=== PATIENT | female | born 1975 | race Caucasian/White ===

== ENCOUNTER 2021-04-04 18:18 | Outpatient (CLI) | payer BC, SELFPAY ==
--- NOTE | ~2021-04-04 | XR_ITS ---
XR knee LT min 4V DATE: 04/04/2021 18:47 INDICATION: Worsening chronic two-year left anterior knee pain. No injury. TECHNIQUE: Standing AP, PA and lateral views. [place] view. COMPARISON: None FINDINGS: There is very slight periarticular spurring of the patella. No fracture or dislocation or joint effusion. No periosteal reaction or bone destruction, chondrocalc inosis or radiopaque intra-articular loose body. IMPRESSION: Very slight osteoarthritis at the patellofemoral joint Reviewed, dictated and finalized at location A.
== END 2021-04-04 18:19 | disposition home or self-care (01) ==
LOC: ANHIMG 18:21
PROVIDERS: PCP Internal Medicine; Visit Provider Clinical Nurse Specialist
DX: M25.562 Pain in left knee (principal); M17.12 Unilateral primary osteoarthritis, left knee
CPT/HCPCS: 73564

== ENCOUNTER 2021-10-30 13:41 | Emergency (ER) | payer BC, SELFPAY ==
--- NOTE | ~2021-10-30 | CT_ITS ---
EXAMINATION: CT brain wo con INDICATION: Headache COMPARISON: None TECHNIQUE: Standard unenhanced head CT. The dose-length product (DLP) was 605.33 mGy-cm. The mA was a djusted according to patient size. Iterative reconstruction technique was employed. FINDINGS: There is no intracranial hemorrhage, acute infarction, or abnormal mass lesion. The ventric les are normal. There is no abnormal mass effect or midline shift. The epstein-white matter differentiat ion is normal. The basal cisterns are patent. The orbits are normal. The paranasal sinuses, mastoids and calvarium are normal. IMPRESSION: 1. No acute intracranial abnormality. Reviewed, dictated and finalized at location F. AL WINDER
[2021-10-30 13:44] VITALS: BP 153/88; PULSE 85; RESP 16; TEMP 37; O2SAT 98
[2021-10-30 18:26] VITALS: BP 207/96; PULSE 79; RESP 18; O2SAT 99
--- NOTE | 2021-10-30 19:19 | ECG_ITS ---
Measurements Intervals [place] Rate: 71 P: 41 IA: 151 QRS: 233 QRSD: 94 T: 7 QT: 412 QTc: 450 Interpretive Statements SINUS RHYTHM BORDERLINE T WAVE ABNORMALITY- INFERIOR LEADS BASELINE ARTIFACT- I, II, III, AVR, AVL, AVF, V1-V6 BORDERLINE ECG Electronically Signed On 10-31-2021 6:41:16 LABORATORY OPERATIONS COORDINATOR by Denis Sánchez D.O.
[2021-10-30] MEDS: KETOROLAC 30 MG/ML VIAL (*BKC) IV PUSH (19:42)
[2021-10-30 19:44] VITALS: BP 167/81; PULSE 77; RESP 18; O2SAT 99
[2021-10-30 19:55] LABS: Basophils Absolute Auto 0.1 K/mm3 (0.0-0.1); Basophils Percent Auto 0.9 % (0.2-1.2); Eosinophils Absolute Auto 0.1 K/mm3 (0-0.3); Hematocrit 40.7 % (37.0-47.0); Hemoglobin 13.8 g/dL (12.0-15.0); Immature Granulocyte Absolute 0.03 K/mm3 (0.00-0.031); Immature Granulocyte Percent A 0.4 % (0-0.5); Lymphocytes Absolute Auto 2.24 K/mm3 (0.9-3.2); Lymphocytes Percent Auto 32.2 % (18.3-44.2); Mean Corpuscular HGB Conc 33.9 g/dl (32-36); Mean Corpuscular Hemoglobin 33.3 pg (26-34); Mean Corpuscular Volume 98.3 fl (80-100); Mean Platelet Volume 10.3 fl (7.4-10.4); Monocytes Absolute Auto 0.6 K/mm3 (0.1-0.6); Monocytes Percent Auto 7.9 % (2.6-8.5); Neutrophils Percent Auto 57.6 % (45.5-73.1); Platelet Count Result 198 k/mm3 (150-375); Red Blood Count 4.14 M/mm3 (4.2-5.4); Red Cell Distribution Width 14.1 % (11.5-14.5)
[2021-10-30 20:15] LABS: Alanine Aminotransferase 92 U/L (4-35); Albumin Level 4.1 g/dL (3.5-5.1); Alkaline Phosphatase 132 U/L (38-126); Anion Gap 9 mmol/L (8-16); Aspartate Amino Transferase 171 U/L (14-36); Bilirubin,Total 1.7 mg/dL (0.2-1.3); Blood Urea Nitrogen 8 mg/dL (7-17); Calcium 9.2 mg/dL (8.4-10.2); Carbon Dioxide 29 mmol/L (22-30); Chloride 99 mmol/L (98-107); Estimated CRCL calculation 109 ml/min; Estimated Glomerular Filt Rate > 60; Glucose 98 mg/dL (65-110); Potassium 3.9 mmol/L (3.4-5.0); Sodium 137 mmol/L (137-145)
[2021-10-30 20:56] LABS: Add Urine Microscopic? YES; Appearance Urine Clear (Clear); Bacteria Urine Trace /hpf; Bilirubin Urine Negative (Negative); Blood Urine Negative (Negative); Color Urine Amber (Yellow); Glucose Urine UA Negative (Negative); Ketones Urine 1+ mg/dL (Negative); Leukocyte Esterase Ur Negative LEU/UL (Negative); Mucus Urine Few /lpf; Nitrate Urine Negative (Negative); Protein Urine Negative (Negative); RBC Urine 0-2 /hpf (0-2); Specific Grav Ur 1.021 (1.001-1.035); Squamous Epithelial Cell Urine Many /hpf (Few); WBC Urine 0-3 /hpf
--- NOTE | 2021-10-30 21:17 | ED.GENADULT ---
HPI - General Adult General Chief complaint: Dizziness Stated complaint: dizziness, headache. Time Seen by Provider: 10/30/21 19:00 History of Present Illness HPI narrative: Patient is a 46-year-old female who presents to the ER with headache. Patient was at work when she had a tingling headache in the back of her head. It is associated with the feeling that her arm was cold and hands were clammy. The affected arm was on the right side. She had no functional deficit. No difficulty with balance. Denies slurred speech. Patient is taking no pain medication for the headache. She is concerned that her blood pressure is elevated. Patient also reports that she started having shaking when her symptoms began. No loss of consciousness. Patient reports she has no loss of sensation in her arm including sharp/soft/hot/cold. Related Data Home Medications Medication Instructions Recorded Confirmed Daily Multivitamin 1 cap PO DAILY 08/29/19 04/24/21 calcium carbonate [Calcium 500] 500 mg PO DAILY 08/29/19 04/24/21 Allergies Allergy/AdvReac Type Severity Reaction Status Date / Time azithromycin Allergy Unknown Verified 06/21/19 15:12 erythromycin base Allergy Unknown Verified 09/26/18 12:06 morphine Allergy Unknown Verified 06/21/19 15:12 NSAIDS (Non-Steroidal AdvReac Gastrointestinal Verified 08/29/19 09:55 Anti-Inflamma Upset Review of Systems Review of Systems: All systems reviewed & are unremarkable except as noted in HPI and below Constitutional: Constitutional: Denies chills, Denies fever(s) and Denies weakness ENT: Denies nasal congestion Cardiovascular: Cardiovascular: Denies chest pain, Denies rapid heart rate and Denies radiating jaw, neck or arm pain Respiratory: Respiratory: Denies cough and Denies dyspnea Gastrointestinal: Gastrointestinal: Denies abdominal pain, Denies nausea and Denies vomiting Neurologic: Denies syncope, Reports headache(s), Denies focal weakness and Denies numbness Comments: cold arm PMFSH Past Medical History Medical History Anxiety Asthma Depression Hyperlipidemia Hypertension Plantar fasciitis Surgical History Surgical History History of appendectomy History of History of sleeve gastrectomy 2016 Family History Family History Mother Diabetes mellitus Hypertension Heart disease Father Hypertension Cerebrovascular accident Other Family history of cardiovascular disease Social History Social History Smoking status: Former smoker Smoking end date: 11/01/04 Alcohol intake: current Alcohol use details: 2-3 drinks 2-3 days a week Exam Narrative: GENERAL: Well-appearing, well-nourished, and in no acute distress. HEAD: Normocephalic, atraumatic. EYES: PERRLA and EOMI. NECK: Supple. CHEST: Clear to auscultation. No respiratory distress. HEART: Regular rate and rhythm. Normal peripheral pulses. ABDOMEN: Soft, nontender, nondistended EXTREMITIES: Normal range of motion. No edema. SKIN: Warm, dry, no rash. NEURO: No focal deficits. Clear speech. No drift. Normal finger-nose testing. Sensation intact in upper extremities. Alert and oriented x3. PSYCH: Normal mood and affect. Course Course Emergency Course: Headache resolved with Toradol. Labs unremarkable with exception of transaminases. Patient reports she drinks daily. She has no right upper quadrant tenderness. Discussed she should follow-up with her PCP regarding her elevated liver enzymes. Could be related to drinking or fatty liver disease. Patient has follow-up scheduled with her PCP on 11/04/2020. Vital Signs Vital signs: Vital Signs Temperature 98.6 F 10/30/21 13:44 Pulse Rate 85 10/30/21 13:44 Respiratory Rate 16 10/30/21 13:44 Blood Pressure 1
[2021-10-30 21:53] VITALS: BP 142/72; PULSE 73; RESP 18; O2SAT 99
[2021-10-30 23:21] VITALS: BP 142/70; PULSE 78; RESP 20; O2SAT 99
== END 2021-10-30 23:22 | disposition home or self-care (01) ==
PROVIDERS: Emergency Provider Emergency Medicine; PCP Internal Medicine
DX: R51.9 Headache, unspecified (principal); R74.01 Elevation of levels of liver transaminase levels; J45.909 Unspecified asthma, uncomplicated; E78.5 Hyperlipidemia, unspecified; I10 Essential (primary) hypertension; Z98.84 Bariatric surgery status; Z87.891 Personal history of nicotine dependence; R94.31 Abnormal electrocardiogram [ECG] [EKG]
CPT/HCPCS: 36415; 70450; 80053; 81001; 81025; 85025; 93005; 96374; 99284; J1885

== ENCOUNTER 2021-11-26 09:15 | Outpatient (CLI) | payer BC, SELFPAY ==
--- NOTE | ~2021-11-26 | US_ITS ---
EXAMINATION: US right upper quadrant EXAM DATE: 11/26/2021 09:42 INDICATION: Elevated liver enzymes. TECHNIQUE: Multiple grayscale and Doppler images of the abdomen right upper quadrant were obtained (b y a technologist who performed the scan) and subsequently reviewed. Comparison is made to prior exami nation from 07/18/2019. FINDINGS: The pancreatic head and body are normal in appearance. The pancreatic tail is not visualized. There is echogenic liver parenchyma, hepatic steatosis. There are no focal liver lesions identified. Th ere is no evidence of intrahepatic biliary duct dilation. Portal venous flow was seen in the hepatop edal, normal direction and has normal Doppler waveform. No right-sided hydronephrosis. Common bile duct measures 4 mm, which is normal. The gallbladder wall is normal in thickness, with ex pected amount of distention. No sonographic evidence of pericholecystic fluid. There is no cholelit hiases. Technologist performing exam reports patient did not demonstrate sonographic Stafford's sign. Please note that this sign is less reliable in patients who have received pain medication. IMPRESSION: Interval development of hepatic steatosis. Reviewed, dictated and finalized at location A. E INSURANCE AGENT
== END 2021-11-26 09:16 | disposition home or self-care (01) ==
LOC: ANHIMG 09:18
PROVIDERS: PCP Internal Medicine; Visit Provider Nurse Practitioner
DX: R74.8 Abnormal levels of other serum enzymes (principal); K76.0 Fatty (change of) liver, not elsewhere classified
CPT/HCPCS: 76705

== ENCOUNTER → 2021-11-26 14:47 | Outpatient (CLI) | payer BC, SELFPAY ==
--- NOTE | ~2021-11-26 | MM_ITS ---
EXAMINATION: MM screening marely BI w jimena HISTORY: Screening mammogram TECHNIQUE: Craniocaudal and mediolateral oblique 3-D tomosynthesis images were obtained and synthetic 2-D images were generated. CAD analysis was submitted and interpreted. COMPARISON: 07/18/2019 BREAST PARENCHYMAL COMPOSITION: There are scattered areas of fibroglandular density. FINDINGS: There is no evidence of suspicious mass, calcification, or architectural distortion to sugg est malignancy in either breast. There has been no suspicious interval change. IMPRESSION: 1. No mammographic evidence of malignancy. 2. Recommend routine screening mammography in one year. BI-RADS Category 1: Negative Reviewed, dictated and finalized at location A. FILTER OPERATOR
== END ==
PROVIDERS: Visit Provider Obstetrics & Gynecology
DX: Z12.31 Encounter for screening mammogram for malignant neoplasm of breast (principal)
CPT/HCPCS: 77063; 77067

== ENCOUNTER 2022-09-02 13:29 | Emergency (ER) | payer OTHER, SELFPAY ==
[2022-09-02] VITALS (10 sets, daily range): BP systolic 155–176; BP diastolic 76–88; PULSE 87–95; RESP 13–19; TEMP 37.1; O2SAT 96–100
--- NOTE | ~2022-09-02 | XR_ITS ---
EXAMINATION: XR chest 2V DATE: 09/02/2022 13:55 INDICATION: Chest pain. TECHNIQUE: Frontal and lateral views of the chest were obtained. COMPARISON: Chest 2 views 02/11/10, CT abdomen and pelvis 06/10/2019 FINDINGS: The chest demonstrates clear lungs without pneumonia, pleural effusion, or pneumothorax. Bl unting of left posterior costophrenic angle correlates with a small diaphragmatic hernia containing f at by CT. The heart size is normal. IMPRESSION: 1. No acute cardiopulmonary disease. Reviewed, dictated and finalized at location A.
--- NOTE | 2022-09-02 13:30 | ECG_ITS ---
Measurements Intervals [place] Rate: 91 P: 50 AL: 153 QRS: -3 QRSD: 84 T: 16 QT: 359 QTc: 443 Interpretive Statements SINUS RHYTHM DELAYED PRECORDIAL R/S TRANSITION BASELINE ARTIFACT- I, II, AVR, V6 BORDERLINE ECG COMPARED TO ECG 10/30/2021 20:01:37 NO SIGNIFICANT CHANGES Electronically Signed On 09-02-2022 14:04:43 CDT by Denis Sánchez D.O.
[2022-09-02 13:57] LABS: Basophils Absolute Auto 0.1 K/mm3 (0.0-0.1); Basophils Percent Auto 0.9 % (0.2-1.2); Eosinophils Absolute Auto 0.1 K/mm3 (0-0.3); Eosinophils Percent Auto 1.1 % (0-4.4); Hematocrit 39.5 % (37.0-47.0); Immature Granulocyte Absolute 0.03 K/mm3 (0.00-0.031); Immature Granulocyte Percent A 0.4 % (0-0.5); Lymphocytes Absolute Auto 2.37 K/mm3 (0.9-3.2); Lymphocytes Percent Auto 31.6 % (18.3-44.2); Mean Corpuscular HGB Conc 32.9 g/dl (32-36); Mean Corpuscular Hemoglobin 31.4 pg (26-34); Mean Corpuscular Volume 95.4 fl (80-100); Mean Platelet Volume 10.2 fl (7.4-10.4); Monocytes Absolute Auto 0.7 K/mm3 (0.1-0.6); Monocytes Percent Auto 9.7 % (2.6-8.5); Neutrophils Absolute Auto 4.2 K/mm3 (1.3-6.7); Neutrophils Percent Auto 56.3 % (45.5-73.1); Platelet Count Result 196 k/mm3 (150-375); Red Blood Count 4.14 M/mm3 (4.2-5.4); Red Cell Distribution Width 13.4 % (11.5-14.5); White Blood Count 7.5 K/mm3 (4.5-10.0)
[2022-09-02 14:10] LABS: Alanine Aminotransferase 82 U/L (6-35); Albumin Level 4.1 g/dL (3.5-5.1); Alkaline Phosphatase 127 U/L (38-126); Anion Gap 13 mmol/L (8-16); Aspartate Amino Transferase 198 U/L (14-36); Bilirubin,Total 1.1 mg/dL (0.2-1.3); Blood Urea Nitrogen 9 mg/dL (7-17); Calcium 8.8 mg/dL (8.4-10.2); Carbon Dioxide 29 mmol/L (22-30); Chloride 96 mmol/L (98-107); Estimated Glomerular Filt Rate > 60; Glucose 109 mg/dL (65-110); Lipase 258 U/L (23-300); Partial Thromboplastin Time 28.4 SECONDS (22.3-36.8); Potassium 3.5 mmol/L (3.4-5.0); Prothrombin Time 12.6 Seconds (11.1-14.7); Sodium 138 mmol/L (137-145)
[2022-09-02 14:22] LABS: Troponin I < 0.012 ng/mL (0.000-0.034)
--- NOTE | 2022-09-02 17:10 | ED.CHESTPAIN ---
HPI - Chest Pain General Chief Complaint: Chest Pain Stated Complaint: CHEST PAIN X 2 DAYS Time Seen by Provider: 09/02/22 16:52 History of Present Illness HPI narrative: 47-year-old female history of hypertension presents emergency room for evaluation of intermittent chest pain for 3 days. Patient states and occasionally shoots through to her back and radiates into her left upper quadrant, describes it as a sharp sensation. Patient states that she has been experiencing sinus congestion, postnasal drip and a productive cough for 3 weeks. Saw her PCP last week and was given a prescription for amoxicillin for her URI, and states that it has not alleviated her symptoms. Patient states that she is not taking any medications to alleviate her symptoms including her pain. Patient denies shortness of breath or difficulty breathing. Related Data Home Medications Medication Instructions Recorded Confirmed [id number] 200 mcg-vit K 100 1 cap PO DAILY 08/29/19 08/27/22 mcg-lycop 500 [id number] capsule (Daily Multivitamin) tolterodine 4 mg capsule,extended ea PO 08/27/22 08/27/22 release 24 hr Allergies Allergy/AdvReac Type Severity Reaction Status Date / Time azithromycin Allergy Unknown Hives Verified 09/02/22 16:11 erythromycin base Allergy Unknown Hives Verified 09/02/22 16:11 morphine Allergy Unknown Hives Verified 09/02/22 16:11 NSAIDS (Non-Steroidal AdvReac Gastrointestinal Verified 09/02/22 16:11 Anti-Inflamma Upset Review of Systems Review of Systems: CONSTITUTIONAL: Denies fever, chills, or sweats. EYES: Denies visual changes, redness, or discharge. ENT: Denies rhinorrhea, congestion, sore throat, or otalgia. CARDIOVASCULAR: Reports chest pain RESPIRATORY: Denies cough or dyspnea. GASTROINTESTINAL: Denies abdominal pain, nausea, vomiting, or diarrhea. GENITOURINARY: Denies dysuria or hematuria. SKIN: Denies rash or itching. MUSCULOSKELETAL: Denies back pain, joint pain, or myalgia. NEUROLOGIC: Denies headache, numbness, dizziness, or weakness. PSYCHIATRIC: Denies anxiety or depression. [facility] Past Medical History Medical History Anxiety Asthma Depression Hyperlipidemia Hypertension Plantar fasciitis Surgical History Surgical History History of appendectomy History of History of sleeve gastrectomy 2016 Family History Family History Mother Diabetes mellitus Hypertension Heart disease Father Hypertension Cerebrovascular accident Other Family history of cardiovascular disease Social History Social History Social History: Caffeine-tea occasionally Smoking status: Former smoker Smoking end date: 11/01/04 Alcohol intake: current Alcohol use details: 2-3 drinks 2-3 days a week Exam Narrative: GENERAL: Well-appearing, well-nourished, no physical limitations, and in no acute distress. HEAD: Normocephalic, atraumatic. EYES: Conjunctivae normal, PERRLA and EOMI. ENT: External nose normal, Nares clear, no rhinorrhea or epistaxis. Mucous membranes moist. Oropharynx without tonsillar hypertrophy exudate or other lesions. External ears normal, bilateral TMs normal bilaterally NECK: Supple. No adenopathy or masses. CHEST: Clear to auscultation. No respiratory distress. No wheezes rales or rhonchi. No tenderness. HEART: Regular rate and rhythm. No murmur heard. Normal peripheral pulses. EXTREMITIES: Normal range of motion. No edema. No clubbing or cyanosis SKIN: Warm, dry, no rash. No noted wounds NEURO: No focal deficits. Alert and oriented x3. MAEW. CN's II-XI intact bilaterally, normal gait PSYCH: Cooperative. Normal mood and affect. Course Vital Signs Vital signs: Vital Signs Temperature 37.1 C 09/02/22 14:29 Pulse Rate 91
[2022-09-02 17:28] LABS: Troponin I < 0.012 ng/mL (0.000-0.034)
== END 2022-09-02 17:20 | disposition home or self-care (01) ==
PROVIDERS: Emergency Medicine; Emergency Provider Nurse Practitioner Family; PCP Internal Medicine
DX: J06.9 Acute upper respiratory infection, unspecified (principal); R07.89 Other chest pain; F41.9 Anxiety disorder, unspecified; J45.909 Unspecified asthma, uncomplicated; F32.9 Major depressive disorder, single episode, unspecified; E78.5 Hyperlipidemia, unspecified; I10 Essential (primary) hypertension
CPT/HCPCS: 36415; 71046; 80053; 83690; 84484; 85025; 85610; 85730; 93005; 99284

== ENCOUNTER 2023-01-21 01:07 | Day surgery (SDC) | payer OTHER, SELFPAY ==
[2023-01-07 11:03] VITALS: BMI 39.9
--- NOTE | 2023-01-13 14:12 | PM.HPGS ---
History of Present Illness History of Present Illness Consent: Risks, benefits, and alternatives have been discussed and questions answered. Patient agrees to proceed with procedure. Chief complaint: diaphragmatic hernia, early satiety Narrative: Jennifer Moss is a 47 year old female who is being investigated because among other things, she believes that she may have a possible hiatal hernia on the right side. For the past month she has been having worsening pain in her upper abdomen and under the right side of her breast. She call feel something there and states that it almost feels like a baby's head pushing on her . The pressure is pushing up into her under wire bra also causing increased discomfort. She also gets full quite easily. Prior to her bariatric surgery she was diagnosed with a hiatal hernia and was originally under the impression that it was going to be corrected during her surgery but it was not.? It has not caused her any issues until recently. She is now having a hard time bending over, sitting down, and is in constant discomfort. [facility] Past Medical History Medical History Anxiety Asthma Depression Hyperlipidemia Hypertension Plantar fasciitis Surgical History Surgical History History of appendectomy History of History of sleeve gastrectomy 2015 Family History Family History Mother Diabetes mellitus Hypertension Heart disease Father Hypertension Cerebrovascular accident Other Family history of cardiovascular disease Social History Social History Social History: Caffeine-tea occasionally Smoking packs per day: 1 Smoking cigarettes per day: 20.0 Years smoked: 13 Smoking pack-years: 13.00 Smoking status: Former smoker Tobacco type: cigarettes Smoking end date: 11/01/04 Alcohol intake: current Drinks per week: 12 Alcohol use details: DRINKS Substance use: never Substance use type: does not use Lack of Transportation: No Lack of Food: Never True Current Housing: I Have Housing Concerned About Future Housing: No Difficulty Paying Gas/Electric Bills: No Difficulty Paying for Meds: No Currently Unemployed: No Education: High School Diploma/GED Difficulty w/ Childcare or Family Care: No Living arrangements: with family Spiritual care concerns: No Meds Home Medications and Allergies Home Medications Medication Instructions Recorded Confirmed Type [id number] 200 mcg-vit K 100 1 cap PO DAILY 08/29/19 01/07/23 History mcg-lycop 500 [id number] capsule (Daily Multivitamin) hydroxyzine HCl 10 mg tablet 10 mg PO TID PRN Anxiety 09/23/22 01/07/23 History lisinopril 40 mg tablet 40 mg PO DAILY #90 tabs 11/10/22 01/07/23 Rx omeprazole 20 mg capsule,delayed 20 mg PO DAILY PRN Acid Reflux 01/07/23 01/07/23 History release sertraline 100 mg tablet 100 mg PO DAILY 01/07/23 01/07/23 History Allergies Allergy/AdvReac Type Severity Reaction Status Date / Time azithromycin Allergy Intermediate Hives Verified 01/07/23 11:12 erythromycin base Allergy Intermediate Hives Verified 01/07/23 11:12 morphine Allergy Intermediate Hives Verified 01/07/23 11:12 NSAIDS (Non-Steroidal AdvReac Intermediate Gastrointestinal Verified 01/07/23 11:12 Anti-Inflamma Upset Assessment and Plan Assessment and plan (1) Early satiety: Code(s): R68.81 - Early satiety Status: Acute Assessment and Plan: EGD with possible biopsy or dilatation or cautery.
--- NOTE | 2023-01-20 16:52 | PM.HPGS ---
History of Present Illness History of Present Illness Consent: Risks, benefits, and alternatives have been discussed and questions answered. Patient agrees to proceed with procedure. Chief complaint: diaphragmatic hernia, early satiety Narrative: Jennifer Moss is a 47 year old female Who For the past month has been having worsening pain in her upper abdomen and under the right side of her breast. She call feel something there and states that it almost feels like a baby's head pushing on her . The pressure is pushing up into her under wire bra also causing increased discomfort. Prior to her bariatric surgery she was diagnosed with a hiatal hernia and was originally under the impression that it was going to be corrected during her surgery but it was not. Review of Systems Review of Systems: All systems reviewed & are unremarkable except as noted in HPI and below PMFSH Past Medical History Medical History Anxiety Asthma Depression Hyperlipidemia Hypertension Plantar fasciitis Surgical History Surgical History History of appendectomy History of History of sleeve gastrectomy 2015 Family History Family History Mother Diabetes mellitus Hypertension Heart disease Father Hypertension Cerebrovascular accident Other Family history of cardiovascular disease Social History Social History Social History: Caffeine-tea occasionally Smoking packs per day: 1 Smoking cigarettes per day: 20.0 Years smoked: 13 Smoking pack-years: 13.00 Smoking status: Former smoker Tobacco type: cigarettes Smoking end date: 11/01/04 Alcohol intake: current Drinks per week: 12 Alcohol use details: DRINKS Substance use: never Substance use type: does not use Lack of Transportation: No Lack of Food: Never True Current Housing: I Have Housing Concerned About Future Housing: No Difficulty Paying Gas/Electric Bills: No Difficulty Paying for Meds: No Currently Unemployed: No Education: High School Diploma/GED Difficulty w/ Childcare or Family Care: No Living arrangements: with family Spiritual care concerns: No Meds Home Medications and Allergies Home Medications Medication Instructions Recorded Confirmed Type [id number]-[id number]-[id number] 200 mcg-vit K 100 1 cap PO DAILY 08/29/19 01/07/23 History mcg-lycop 500 [id number] capsule (Daily Multivitamin) hydroxyzine HCl 10 mg tablet 10 mg PO TID PRN Anxiety 09/23/22 01/07/23 History lisinopril 40 mg tablet 40 mg PO DAILY #90 tabs 11/10/22 01/07/23 Rx omeprazole 20 mg capsule,delayed 20 mg PO DAILY PRN Acid Reflux 01/07/23 01/07/23 History release sertraline 100 mg tablet 100 mg PO DAILY 01/07/23 01/07/23 History Allergies Allergy/AdvReac Type Severity Reaction Status Date / Time azithromycin Allergy Intermediate Hives Verified 01/21/23 09:46 erythromycin base Allergy Intermediate Hives Verified 01/21/23 09:46 morphine Allergy Intermediate Hives Verified 01/21/23 09:46 NSAIDS (Non-Steroidal AdvReac Intermediate Gastrointestinal Verified 01/21/23 09:46 Anti-Inflamma Upset Exam Resp: Auscultation: clear to auscultation bilaterally Cardio: Rate: regular rate Rhythm: regular rhythm GI: Inspection: normal to inspection GI Palp: Yes Soft to palpation, No Tenderness to palpation present (GI) and Yes Hepatomegaly present Auscultation: normal bowel sounds Assessment and Plan Assessment and plan (1) Hiatal hernia: Code(s): K44.9 - Diaphragmatic hernia without obstruction or gangrene Status: Acute Assessment and Plan: EGD with possible biopsy or dilatation or cautery.
--- NOTE | 2023-01-21 07:38 | WPDANESEPPF ---
Anes - Initial Pre Proc Eval Procedure: Operation Date: 01/21/23 10:30 Proposed Procedures p Esophagogastroduodenoscopy - Artemio Starks MD Date/Time: 01/21/23 07:38 Surgeon: Artemio Starks MD Pre Op Diagnosis: diaphragmatic hernia, early satiety Patient Data Age: 47 Gender: F Height: 1.55 m Weight: 96 kg Allergies Allergy/AdvReac Type Severity Reaction Status Date / Time azithromycin Allergy Intermediate Hives Verified 01/21/23 09:46 erythromycin base Allergy Intermediate Hives Verified 01/21/23 09:46 morphine Allergy Intermediate Hives Verified 01/21/23 09:46 NSAIDS (Non-Steroidal AdvReac Intermediate Gastrointestinal Verified 01/21/23 09:46 Anti-Inflamma Upset Home Medications Medication Instructions Recorded Confirmed Type [id number]-wib-[id number] 200 mcg-vit K 100 1 cap PO DAILY 08/29/19 01/07/23 History mcg-lycop 500 [id number] capsule (Daily Multivitamin) hydroxyzine HCl 10 mg tablet 10 mg PO TID PRN Anxiety 09/23/22 01/07/23 History lisinopril 40 mg tablet 40 mg PO DAILY #90 tabs 11/10/22 01/07/23 Rx omeprazole 20 mg capsule,delayed 20 mg PO DAILY PRN Acid Reflux 01/07/23 01/07/23 History release sertraline 100 mg tablet 100 mg PO DAILY 01/07/23 01/07/23 History omeprazole 40 mg capsule,delayed 40 mg PO DAILY #30 caps 01/21/23 Rx release Patient hx anesthesia problems: none Family hx anesthesia problems: none Results Review: All pre-operative results and documents have been reviewed as part of the pre-operative evaluation. [facility] Past Medical History Medical History Anxiety Asthma Depression Hyperlipidemia Hypertension Plantar fasciitis Surgical History Surgical History History of appendectomy History of History of sleeve gastrectomy 2016 Family History Family History Mother Diabetes mellitus Hypertension Heart disease Father Hypertension Cerebrovascular accident Other Family history of cardiovascular disease Social History Social History Social History: Caffeine-tea occasionally Smoking packs per day: 1 Smoking cigarettes per day: 20.0 Years smoked: 13 Smoking pack-years: 13.00 Smoking status: Former smoker Tobacco type: cigarettes Smoking end date: 11/01/04 Alcohol intake: current Drinks per week: 12 Alcohol use details: DRINKS Substance use: never Substance use type: does not use Lack of Transportation: No Lack of Food: Never True Current Housing: I Have Housing Concerned About Future Housing: No Difficulty Paying Gas/Electric Bills: No Difficulty Paying for Meds: No Currently Unemployed: No Education: High School Diploma/GED Difficulty w/ Childcare or Family Care: No Living arrangements: with family Spiritual care concerns: No Anes - Eval Final PreProcedure Day of Procedure 01/21/23 07:38 Patient weight: morbidly obese Heart: regular rate and rhythm Lungs: clear to auscultation Airway: Mallampati scale class II Neurological: alert and oriented Last oral intake: >/= 8 hours ASA classification: III Emergent: no Anesthetic plan: proceed Anesthesia type and monitoring: general GIVS and standard monitoring Results Review: All pre-operative results and documents have been reviewed as part of the pre-operative evaluation. Informed Consent: The patient's anesthetic plan and its attendant risks and benefits were discussed with the patient/family/POA. Questions were solicited and answers provided to the satisfaction of the patient/family/POA.
[2023-01-21 09:48] VITALS: BP 143/83; PULSE 87; RESP 18; TEMP 36.4; O2SAT 100
[2023-01-21] MEDS: LACTATED RINGERS 1,000 ML 150 ML IV CONT (09:57)
[2023-01-21 10:33] VITALS: BP 96/64; PULSE 85; RESP 18; O2SAT 100
[2023-01-21 10:43] VITALS: BP 118/71; PULSE 81; RESP 20; O2SAT 100
[2023-01-21 10:53] VITALS: BP 120/69; PULSE 71; RESP 22; O2SAT 100
== END 2023-01-21 11:00 | disposition home or self-care (01) ==
PROVIDERS: PCP Internal Medicine; Visit Provider Internal Medicine Gastroenterology
PROC: 0DJ08ZZ Inspection of Upper Intestinal Tract, Via Natural or Artificial Opening Endoscopic (ICD-10-PCS; CPT 43235; principal; 2023-01-21 10:30)
DX: K21.00 Gastro-esophageal reflux disease with esophagitis, without bleeding (principal); K29.70 Gastritis, unspecified, without bleeding; K22.10 Ulcer of esophagus without bleeding; Z98.84 Bariatric surgery status; I10 Essential (primary) hypertension; F41.9 Anxiety disorder, unspecified; F32.A Depression, unspecified; Z87.891 Personal history of nicotine dependence; E66.01 Morbid (severe) obesity due to excess calories; Z68.39 Body mass index [BMI] 39.0-39.9, adult
CPT/HCPCS: 43239; 88305; 88312; J2001; J2704; J7120

== ENCOUNTER 2023-01-22 14:09 | Outpatient (CLI) | payer OTHER, SELFPAY ==
--- NOTE | ~2023-01-22 | CT_ITS ---
EXAMINATION: CT abdomen pelvis w con DATE: 01/22/2023 14:40 INDICATION: Worsening right upper quadrant abdominal pain, early satiety, acid reflux. Nausea, diarrh ea. Diaphragmatic hernia. Hiatal hernia. History of gastric sleeve surgery and appendectomy. TECHNIQUE: Computed tomography (CT) of the abdomen and pelvis was performed with 100 CC Omnipaque 350 intravenous contrast. Automated exposure control and iterative reconstruction technique were employe d. Exam dose: 1055.05 mGy-cm total exam DLP. COMPARISON: 11/26/2021 right upper quadrant abdominal ultrasound examination 06/10/2019 CT abdomen pelvis FINDINGS: Probable calcified left lower lobe pulmonary granuloma. The included lower lung vazquez are clear of infiltrate or consolidation. Fat-containing left foramen of Bochdalek hernia. Normal heart size. No pericardial or pleural effusion. There is diffuse hepatic steatosis. No hepatic, splenic, pancreatic, and adrenal or renal space-occup mynor mass lesion or gallbladder is present. No bile duct or pancreatic duct dilatation. No urinary tr act calculus or hydroureteronephrosis. There is atherosclerotic calcification of the abdominal aorta and iliac arteries. No abdominal aortic aneurysm. No intraperitoneal or retroperitoneal or pelvic mass lesion or adenopathy or ascites. Status post gastric sleeve surgery. Status post appendectomy. There is diverticulosis of the left colon; no CT evidence of diverticulitis. No bowel obstruction, rony wel wall thickening, pneumatosis or intraperitoneal free air. Approximately 2.1 x 3.1 cm uterine cervical nabothian cyst. Up to approximately 2 cm left ovarian cysts. No suspicious osteolytic or osteoblastic lesions. IMPRESSION: Status post gastric sleeve surgery Status post appendectomy Diverticulosis of left colon; no evidence of diverticulitis Diffuse hepatic steatosis Reviewed, dictated and finalized at [facility]. Reviewed, dictated and finalized at location [facility].
[2023-01-22 14:32] LABS: Estimated Glomerular Filt Rate > 60
== END 2023-01-22 14:10 ==
PROVIDERS: PCP Internal Medicine; Visit Provider Clinical Nurse Specialist
DX: R68.81 Early satiety (principal); K44.9 Diaphragmatic hernia without obstruction or gangrene; Z98.84 Bariatric surgery status; K57.90 Diverticulosis of intestine, part unspecified, without perforation or abscess without bleeding; K76.0 Fatty (change of) liver, not elsewhere classified
CPT/HCPCS: 74177; Q9967

== ENCOUNTER → 2023-02-02 16:22 | Outpatient (CLI) | payer OTHER, SELFPAY ==
--- NOTE | ~2023-02-02 | MM_ITS ---
EXAMINATION: MM screening marely BI w jimena HISTORY: Screening mammogram TECHNIQUE: Craniocaudal and mediolateral oblique 3-D tomosynthesis images were obtained and synthetic 2-D images were generated. CAD analysis was submitted and interpreted. COMPARISON: 11/26/2021, 07/18/2019 bilateral screening mammogram examinations BREAST PARENCHYMAL COMPOSITION: There are scattered areas of fibroglandular density. FINDINGS: There is no evidence of suspicious mass, calcification, or architectural distortion to sugg est malignancy in either breast. There has been no suspicious interval change. IMPRESSION: 1. No mammographic evidence of malignancy. 2. Recommend routine screening mammography in one year. BI-RADS Category 1: Negative Reviewed, dictated and finalized at location [facility].
== END ==
PROVIDERS: PCP Internal Medicine; Visit Provider Obstetrics & Gynecology
DX: Z12.31 Encounter for screening mammogram for malignant neoplasm of breast (principal)
CPT/HCPCS: 77063; 77067

== ENCOUNTER 2023-04-02 12:36 | Outpatient (CLI) | payer OTHER, SELFPAY ==
[2023-04-02 18:26] LABS: Basophils Absolute Auto 0.1 K/mm3 (0.0-0.1); Basophils Percent Auto 1.2 % (0.2-1.2); Eosinophils Percent Auto 0.2 % (0-4.4); Hematocrit 39.6 % (37.0-47.0); Hemoglobin 13.6 g/dL (12.0-15.0); Immature Granulocyte Absolute 0.02 K/mm3 (0.00-0.031); Immature Granulocyte Percent A 0.2 % (0-0.5); Lymphocytes Absolute Auto 2.59 K/mm3 (0.9-3.2); Lymphocytes Percent Auto 25.8 % (18.3-44.2); Mean Corpuscular HGB Conc 34.3 g/dl (32-36); Mean Corpuscular Hemoglobin 34.6 pg (26-34); Mean Corpuscular Volume 100.8 fl (80-100); Mean Platelet Volume 11.3 fl (7.4-10.4); Monocytes Absolute Auto 0.9 K/mm3 (0.1-0.6); Monocytes Percent Auto 9.1 % (2.6-8.5); Neutrophils Absolute Auto 6.4 K/mm3 (1.3-6.7); Neutrophils Percent Auto 63.5 % (45.5-73.1); Platelet Count Result 272 k/mm3 (150-375); Red Blood Count 3.93 M/mm3 (4.2-5.4); Red Cell Distribution Width 14.1 % (11.5-14.5)
[2023-04-02 18:28] LABS: Alanine Aminotransferase 127 U/L (6-35); Albumin Level 3.6 g/dL (3.5-5.1); Alkaline Phosphatase 204 U/L (38-126); Anion Gap 13 mmol/L (8-16); Aspartate Amino Transferase 312 U/L (14-36); Bilirubin,Total 2.5 mg/dL (0.2-1.3); Blood Urea Nitrogen 13 mg/dL (7-17); Calcium 8.3 mg/dL (8.4-10.2); Carbon Dioxide 32 mmol/L (22-30); Chloride 91 mmol/L (98-107); Estimated Glomerular Filt Rate 53; Glucose 84 mg/dL (65-110); Potassium 3.1 mmol/L (3.4-5.0); Sodium 136 mmol/L (137-145)
[2023-04-02 18:48] LABS: Appearance Urine Turbid (Clear); Bilirubin Urine 2+ (Negative); Blood Urine Negative (Negative); Color Urine Brown (Yellow); Glucose Urine UA Negative (Negative); Ketones Urine 2+ mg/dL (Negative); Leukocyte Esterase Ur Negative LEU/UL (Negative); Nitrate Urine Negative (Negative); Protein Urine 2+ mg/dL (Negative); Specific Grav Ur 1.025 (1.001-1.035); Urobilinogen Urine >=8.0 mg/dL (<2.0)
[2023-04-02 19:00] LABS: Erythrocyte Sedimentation Rate 24 mm/hr (0-20)
[2023-04-02 19:05] LABS: Bacteria Urine None Seen /hpf; Need Manual Microscopic Reviewed; Non Pathogenic Casts >20; RBC Urine 21-50 /hpf (0-2); Squamous Epithelial Cell Urine Many /hpf (Few)
[2023-04-02 19:06] LABS: Add Urine Microscopic? YES
[2023-04-02 19:10] LABS: HIV 1/2 Ab P24 Ag Result Negative (Negative); Hepatitis B Surface Antigen Negative (Negative)
[2023-04-02 19:27] LABS: Hepatitis C Virus Antibody Negative (Negative)
[2023-04-03 01:12] LABS: Iron 112 ug/dL (37-170); Percent Iron Saturation 63 % (20-50)
== END 2023-04-02 12:37 | disposition home or self-care (01) ==
LOC: ANHGOSHLAB 12:37
PROVIDERS: PCP Internal Medicine; Visit Provider Nurse Practitioner
DX: R68.81 Early satiety (principal); R63.4 Abnormal weight loss; R16.0 Hepatomegaly, not elsewhere classified
CPT/HCPCS: 36415; 80053; 81001; 82728; 83036; 83540; 83550; 84443; 85025; 85652; 86703; 86803; 87086; 87340; G0432

== ENCOUNTER 2023-04-16 14:45 | Emergency (ER) | payer OTHER, SELFPAY ==
[2023-04-16] VITALS (22 sets, daily range): BP systolic 107–149; BP diastolic 52–85; PULSE 80–115; RESP 14–34; TEMP 36.3; O2SAT 98–100
--- NOTE | ~2023-04-16 | XR_ITS ---
EXAMINATION: XR chest 1V portable 04/16/2023 16:30 INDICATION: Shortness of breath and numbness. PROCEDURE: AP portable chest COMPARISON: Comparison to multiple prior studies sequentially, with oldest reviewed study dated 12/2008. FINDINGS: The lungs are clear. The cardiomediastinal silhouette is within normal limits. There are no pleural effusions. There is no pneumothorax suspected. IMPRESSION: 1: NO ACUTE CARDIOPULMONARY DISEASE. Reviewed, dictated and finalized at location []
--- NOTE | ~2023-04-16 | CT_ITS ---
EXAMINATION: CT brain wo con DATE: 04/16/2023 18:16 INDICATION: Bilateral leg numbness . TECHNIQUE: Computed tomography (CT) of the head was performed without intravenous contrast. The mA wa s adjusted according to patient size. Iterative reconstruction technique was employed. The dose-lengt h product was 605.33 mGy-cm. COMPARISON: None. FINDINGS: No acute intracranial hemorrhage or extra-axial fluid collection. No hydrocephalus, mass, or herniation. No acute ischemic infarct. Unremarkable dural venous sinus attenuation. No acute osseous abnormality. The aerated spaces are clear. IMPRESSION: No acute intracranial process. Reviewed, dictated and finalized at location [facility].
--- NOTE | 2023-04-16 15:10 | ECG_ITS ---
Measurements Intervals [place] Rate: 97 P: 43 [place]: 124 QRS: 3 QRSD: 85 T: 27 QT: 355 QTc: 451 Interpretive Statements SINUS RHYTHM NONSPECIFIC ST & T-WAVE ABNORMALITY ABNORMAL ECG COMPARED TO ECG 09/02/2022 13:46:23 T-WAVE ABNORMALITY NOW PRESENT Electronically Signed On 04-17-2023 9:12:39 CDT by Keenan Juarez M.D.
[2023-04-16 15:36] LABS: Basophils Absolute Auto 0.1 K/mm3 (0.0-0.1); Basophils Percent Auto 0.9 % (0.2-1.2); Eosinophils Percent Auto 0.3 % (0-4.4); Hematocrit 37.3 % (37.0-47.0); Hemoglobin 12.6 g/dL (12.0-15.0); Immature Granulocyte Absolute 0.04 K/mm3 (0.00-0.031); Immature Granulocyte Percent A 0.4 % (0-0.5); Lymphocytes Absolute Auto 1.54 K/mm3 (0.9-3.2); Lymphocytes Percent Auto 15.6 % (18.3-44.2); Mean Corpuscular HGB Conc 33.8 g/dl (32-36); Mean Corpuscular Hemoglobin 34.2 pg (26-34); Mean Corpuscular Volume 101.4 fl (80-100); Mean Platelet Volume 10.2 fl (7.4-10.4); Monocytes Absolute Auto 0.7 K/mm3 (0.1-0.6); Monocytes Percent Auto 6.8 % (2.6-8.5); Neutrophils Absolute Auto 7.5 K/mm3 (1.3-6.7); Platelet Count Result 277 k/mm3 (150-375); Red Blood Count 3.68 M/mm3 (4.2-5.4); Red Cell Distribution Width 13.8 % (11.5-14.5); White Blood Count 9.9 K/mm3 (4.5-10.0)
[2023-04-16 15:47] LABS: INR 0.9; Prothrombin Time 12.5 Seconds (11.1-14.7)
[2023-04-16 15:48] LABS: Alanine Aminotransferase 107 U/L (6-35); Albumin Level 3.6 g/dL (3.5-5.1); Alkaline Phosphatase 224 U/L (38-126); Anion Gap 10 mmol/L (8-16); Aspartate Amino Transferase 249 U/L (14-36); Blood Urea Nitrogen 8 mg/dL (7-17); Calcium 8.8 mg/dL (8.4-10.2); Carbon Dioxide 30 mmol/L (22-30); Chloride 96 mmol/L (98-107); Estimated CRCL calculation 88 ml/min; Estimated Glomerular Filt Rate > 60; Glucose 123 mg/dL (65-110); Magnesium 1.5 mg/dL (1.6-2.3); Partial Thromboplastin Time 28.1 SECONDS (22.3-36.8); Potassium 3.1 mmol/L (3.4-5.0); Sodium 136 mmol/L (137-145)
--- NOTE | 2023-04-16 15:57 | ED.GENADULT ---
HPI - General Adult General Chief complaint: Neuro Symptoms/Deficit Stated complaint: lower waist, bilateral leg numbness since yesterda Time Seen by Provider: 04/16/23 15:18 History of Present Illness HPI narrative: 48-year-old female present to the emergency department for evaluation of lower extremity numbness. Patient states that she has had decreased sensation in her lower legs bilaterally all day today. Patient denies any associated weakness. Patient states she does have history of gastric sleeve and has had decreased p.o. intake and is also had some unintentional weight loss. Patient was also reporting some increased shortness of breath today. Patient denies any associated chest pain. Related Data Home Medications Medication Instructions Recorded Confirmed hydroxyzine HCl 10 mg tablet 10 mg PO TID PRN Anxiety 09/23/22 04/06/23 sertraline 100 mg tablet 100 mg PO DAILY 01/07/23 04/06/23 Allergies Allergy/AdvReac Type Severity Reaction Status Date / Time azithromycin Allergy Intermediate Hives Verified 04/06/23 13:38 erythromycin base Allergy Intermediate Hives Verified 04/06/23 13:38 morphine Allergy Intermediate Hives Verified 04/06/23 13:38 NSAIDS (Non-Steroidal AdvReac Intermediate Gastrointestinal Verified 04/06/23 13:38 Anti-Inflamma Upset Review of Systems Review of Systems: All systems reviewed & are unremarkable except as noted in HPI and below PMFSH Past Medical History Medical History Anxiety Asthma Depression Hyperlipidemia Hypertension Plantar fasciitis Surgical History Surgical History History of appendectomy History of History of sleeve gastrectomy 2016 Family History Family History Mother Diabetes mellitus Hypertension Heart disease Father Hypertension Cerebrovascular accident Other Family history of cardiovascular disease Social History Social History Social History: Caffeine-tea occasionally Smoking packs per day: 1 Smoking cigarettes per day: 20.0 Years smoked: 13 Smoking pack-years: 13.00 Smoking status: Former smoker Tobacco type: cigarettes Smoking end date: 11/01/04 Alcohol intake: current Drinks per week: 12 Alcohol use details: DRINKS Substance use: never Substance use type: does not use Lack of Transportation: No Lack of Food: Never True Current Housing: I Have Housing Concerned About Future Housing: No Difficulty Paying Gas/Electric Bills: No Difficulty Paying for Meds: No Currently Unemployed: No Education: High School Diploma/GED Difficulty w/ Childcare or Family Care: No Living arrangements: with family Spiritual care concerns: No Exam Narrative: APPEARANCE: Well appearing, no pain, no distress, well-nourished. HEAD: normocephalic, atraumatic. EYES: PERRLA/EOMI, conjunctivae clear. NOSE: Normal no drainage NECK: Supple. No adenopathy, no masses. RESPIRATORY: Airway patent, respirations nonlabored. Clear to auscultation bilaterally, no rales, rhonchi, wheezing. CARDIOVASCULAR: Regular rate and rhythm without murmurs rubs or gallops. ABDOMINAL: Soft, nontender, nondistended, normal bowel sounds MUSCULOSKELETAL: Moves all extremities. Strength/ROM intact, No edema, No calf tenderness. NEURO: Alert. Cranial nerves II through XII intact. Grossly intact. Normal strength reflexes and sensation. Normal proprioception. SKIN: Warm, dry. Normal Color Course Course Emergency Course: 48-year-old female presented ED for evaluation of shortness of breath and lower extremity numbness. Patient is hypokalemic and hypomagnesemic these are being replaced by IV and p.o. Patient had a negative head CT. Patient reports he does have some minor improvement in her symptoms. Patient'
[2023-04-16] MEDS: POTASSIUM CHLORIDE 20 MEQ PACKET (FOR LIQUID) 40 MEQ PO (16:37)
[2023-04-16] MEDS: MAGNESIUM SULF 2 GM/WATER 50ML 2 GM/50 ML BAG IVPB (16:37)
[2023-04-16 16:52] LABS: D Dimer 0.29 ug/mL (<0.48)
[2023-04-16] MEDS: KCL 20 MEQ/SW 100 ML 100 ML 50 MEQ IVPB (17:48)
== END 2023-04-16 20:13 | disposition home or self-care (01) ==
PROVIDERS: Emergency Provider Emergency Medicine; PCP Internal Medicine
DX: G62.9 Polyneuropathy, unspecified (principal); Z87.891 Personal history of nicotine dependence; E87.6 Hypokalemia; J45.909 Unspecified asthma, uncomplicated; I10 Essential (primary) hypertension; F41.9 Anxiety disorder, unspecified; F32.A Depression, unspecified; E78.5 Hyperlipidemia, unspecified; Z98.84 Bariatric surgery status; E83.42 Hypomagnesemia
CPT/HCPCS: 36415; 70450; 71045; 80053; 82607; 82746; 83735; 84443; 85025; 85380; 85610; 85730; 93005; 96365; 96366; 96367; 99284; A9270; J3475; J3480

== ENCOUNTER 2023-04-22 12:13 | Outpatient (CLI) | payer OTHER, SELFPAY ==
[2023-04-22 19:39] LABS: Magnesium 1.6 mg/dL (1.6-2.3); Potassium 4.4 mmol/L (3.4-5.0)
== END 2023-04-22 12:14 | disposition home or self-care (01) ==
LOC: ANHBWCLAB 12:15
PROVIDERS: PCP Internal Medicine; Visit Provider Nurse Practitioner
DX: E87.6 Hypokalemia (principal); E83.42 Hypomagnesemia; R79.89 Other specified abnormal findings of blood chemistry
CPT/HCPCS: 36415; 82728; 83735; 84132

== ENCOUNTER 2023-04-28 07:42 | Inpatient (IN) | payer OTHER, SELFPAY ==
[2023-04-28] VITALS (19 sets, daily range): BP systolic 127–173; BP diastolic 45–98; PULSE 82–107; RESP 14–20; TEMP 36.4–36.9; O2SAT 97–100; BMI 36.5
--- NOTE | ~2023-04-28 | MR_ITS ---
EXAMINATION: MR lumbar spine wo/w con DATE: 04/28/2023 16:43 INDICATION: Numbness from the chest to the feet TECHNIQUE: Magnetic resonance imaging (MRI) of the lumbar spine was performed without and with 17 mL Multihance intravenous contrast. Sequences included sagittal T2-weighted FSE, sagittal T2-weighted FS FSE, and sagittal and axial T1-weighted FSE. Postcontrast sequences included axial T2-weighted FSE, sagittal T1-weighted FSE, and axial and sagittal T1-weighted FS FSE. COMPARISON: CT abdomen pelvis dated 01/22/2023 FINDINGS: Alignment is normal. Vertebral body heights are normal. Normal marrow signal. Mild disc desiccation and mild disc height loss at L4-L5 and L5-S1. The conus medullaris terminates at L1. There is normal signal in the caudal spinal cord. Paravertebral soft tissues are unremarkable. No abnormally enhancin g lesions identified. The following disc levels are specifically discussed: T12-L1 through L3-L4: The disc does not extend beyond the endplate margin. There is mild bilateral fa cet joint osteoarthritis. There is no neural foraminal stenosis. There is no central canal stenosis. L4-L5: Disc is mildly bulging. There is minimal bilateral facet joint osteoarthritis. There is mild b ilateral neural foraminal stenosis. There is no central canal stenosis. L5-S1: Disc is bulging. There is moderate bilateral facet joint osteoarthritis. There is mild bilater al neural foraminal stenosis. There is mild central canal stenosis resulting primarily from increased epidural fat. IMPRESSION: 1. Mild lower lumbar spondylosis. Reviewed, dictated and finalized at location A.
--- NOTE | ~2023-04-28 | CT_ITS ---
EXAMINATION: CTA BRAIN/CAROTID DATE: 04/28/2023 09:40 INDICATION: Progressive weakness TECHNIQUE: Computed tomographic angiography (CTA) of the head and neck was performed with 100 mL Omni paque-350 intravenous contrast. Multiplanar reconstructions and maximum intensity projection 3D-recon structions of the carotid arteries and of the intracranial arteries were created by the technologist on a separate workstation. Precontrast CT of the head was also obtained. Automated exposure control and iterative reconstruction technique were employed.The dose-length product was 1694.20 mGy-cm. COMPARISON: Head CT dated 04/16/2023 FINDINGS: Carotid arteries: Visualized aortic arch is normal in caliber with small amount of nonhemodynamically significant ather osclerotic plaque and no dissection. There is no evident plaque with 0% stenosis of the right and lef t carotid bulbs relative to normal distal artery lumen diameter (NASCET criteria). Right vertebral ar kait is dominant. Visualized portions of the upper lungs are clear. The cervical soft tissues and vis ualized superior mediastinum are unremarkable. Likely positional reversal of the normal cervical lord osis with multilevel mild cervical facet osteoarthritis. Disc spaces appear normal with no evident ce ntral canal stenosis. Head: No acute intracranial hemorrhage, acute infarction or abnormal extra axial fluid collection. Ventricl es are normal and symmetric. No mass/mass effect. The orbits, paranasal sinuses and mastoid air cells are normal. Intracranial arteries Right vertebral artery is dominant. Minimal calcified atherosclerotic plaque at the bilateral carotid siphons without hemodynamically significant stenosis. There is no hemodynamically significant stenos is in the vertebral, basilar and internal carotid arteries. There are no aneurysms identified. Both A1 and P1 segments are patent. Cerebral arterial arborization appears symmetric. IMPRESSION: 1. No evident atherosclerotic plaque with 0% stenosis of the right and left carotid bulbs relative to normal distal artery lumen diameter (NASCET criteria). 2. Normal head CT and cerebral CT angiogram. Reviewed, dictated and finalized at location A. IMPRESSION: 1. No evident atherosclerotic plaque with 0% stenosis of the right and left car otid bulbs relative to normal distal artery lumen diameter (NASCET criteria). 2. Normal head CT and cerebral CT angiogram.
--- NOTE | ~2023-04-28 | US_ITS ---
EXAMINATION: US abdomen limited DATE: 04/29/2023 19:18 INDICATION: elevated LFTs TECHNIQUE: Multiple grayscale and Doppler ultrasound images of limited portions of the abdomen were o btained. COMPARISON: CT abdomen pelvis 01/22/2023. FINDINGS: The visualized portions of the pancreas are normal. Increased liver echogenicity and normal echotexture. No surface nodularity. Normal hepatopetal flow in the main portal vein. The gallbladder is normal with no abnormal wall thickening, pericholecystic fluid or stones. The common bile duct me asures 4 mm. There was no sonographic Stafford sign. IMPRESSION: Echogenic liver, most commonly due to steatosis but also can be seen with hepatitis and fibrosis. Reviewed, dictated and finalized at location K. IMPRESSION: Echogenic liver, most commonly due to steatosis but also can be seen with hepat itis and fibrosis.
--- NOTE | ~2023-04-28 | MR_ITS ---
EXAMINATION: MR thoracic spine wo/w con DATE: 04/28/2023 16:43 INDICATION: Numbness from the chest through the lower extremities TECHNIQUE: Magnetic resonance imaging (MRI) of the thoracic spine was performed without and with 17 m L Multihance intravenous contrast. Sagittal localizer T1-weighted FSE of the cervicothoracic spine wa s obtained. Sequences included sagittal T2-weighted FSE, sagittal T2-weighted FS FSE, sagittal T1-fazal ghted FSE, sagittal fluid sensitive FSE STIR and axial T1-weighted SE. Postcontrast sequences include d axial T2-weighted FSE, sagittal T1-weighted FS FSE, and axial T1-weighted FS SE. COMPARISON: None FINDINGS: 7 degrees upper thoracic levocurvature. Sagittal alignment is normal.Vertebral body heights are maurice l. Normal marrow signal.Mild disc height loss atT3-T4 and T5-T6 through T7-T8. The discs do not exten d beyond the endplate margins with no central canal stenosis. There is multilevel mild thoracic facet osteoarthritis without corresponding neural foraminal stenosis. There is normal spinal cord signal. No abnormally enhancing lesions identified. IMPRESSION: 1. Mild upper thoracic levocurvature with minimal to mild spondylosis. No central canal or neural for aminal stenosis or cord lesions identified. Reviewed, dictated and finalized at location A. IMPRESSION: 1. Mild upper thoracic levocurvature with minimal to mild spondylosis. No centr al canal or neural foraminal stenosis or cord lesions identified.
--- NOTE | ~2023-04-28 | MR_ITS ---
EXAMINATION: MR cervical spine wo/w con DATE: 04/28/2023 16:44 INDICATION: Numbness extending from the chest to the feet. TECHNIQUE: Magnetic resonance imaging (MRI) of the cervical spine was performed without and with 17 m L Multihance intravenous contrast. Sequences included sagittal T2-weighted FSE, sagittal T2-weighted FS FSE, sagittal T1-weighted FSE, axial T2-weighted FSE, and axial T1-weighted SE. Postcontrast seque nces included sagittal T1-weighted FS FSE, and axial T1-weighted FS SE. COMPARISON: None FINDINGS: Bone alignment is normal. Vertebral body heights are normal. Bone marrow signal intensity is normal . Disc heights are normal. There is an annular fissure with central disc extrusion at T6-T7 with disc material extending up to 4 mm caudal to the level of the superior endplate of C7. Cord signal intens ity is normal. No abnormally enhancing lesions identified. The following disc levels are specifically discussed: C2-C3: Very small central disc protrusion. There is no uncovertebral joint osteoarthritis. There is m ild right and mild to moderate left facet joint osteoarthritis. There is mild left neural foraminal s tenosis. There is no central canal stenosis. C3-C4: The disc does not extend beyond the endplate margin. There is no uncovertebral joint osteoarth ritis. There is mild right and moderate left facet joint osteoarthritis. There is mild left neural fo raminal stenosis. There is no central canal stenosis. C4-C5: Disc is minimally bulging. There is no uncovertebral joint osteoarthritis. There is old right and mild to moderate left facet joint osteoarthritis. There is altered left neural foraminal stenosis . There is no central canal stenosis. C5-C6: Disc is minimally bulging. There is no uncovertebral joint osteoarthritis. There is mild bilat eral facet joint osteoarthritis. There is no neural foraminal stenosis. There is no central canal sulaiman nosis. C6-C7: Annular fissure and small central disc extrusion. There is mild bilateral uncovertebral joint osteoarthritis. There is mild right and mild to moderate left facet joint osteoarthritis. There is mi ld left neural foraminal stenosis. There is mild central canal stenosis. C7-T1: The disc does not extend beyond the endplate margin. There is no uncovertebral joint osteoarth ritis. There is mild right and moderate left facet joint osteoarthritis. There is no neural foraminal stenosis. There is no central canal stenosis. IMPRESSION: 1. Minimal to mild cervical spondylosis. Reviewed, dictated and finalized at location A.
--- NOTE | ~2023-04-28 | XR_ITS ---
EXAMINATION: XR lumbar puncture diagnostic DATE: 04/29/2023 10:56 INDICATION: Suspicion for Guillain-[place] syndrome with numbness extending from the chest through the feet. TECHNIQUE: The procedure including the risks and benefits was discussed with the patient. Risks discu ssed included spinal headache, cerebrospinal fluid leak, bleeding, and infection. The patient underst ood the risks and agreed to proceed. A timeout was performed to verify the patient's name, date of , and procedure to be performed. The skin overlying the L3-L4 level was prepped and draped in usual sterile fashion. Subcutaneous 1% lidocaine was used for local anesthesia. A 22 gauge spinal n eedle was advanced under fluoroscopic guidance. The needle was removed and the entry site was cleaned and dressed. There were no immediate complications. A total of 1 fluoroscopic image(s) were obtaine d. The amount of fluoroscopy time used during this procedure was 0.3 minutes. Total DAP was 1.757 Gyc m^2 The patient was taken to the nursing area for observation. FINDINGS: Real-time fluoroscopy demonstrates the needle at the L3-L4 level. Opening pressure was 17 c m water. (Normal range is variably defined as 6-20 cm water and up to 25 cm water in obese patients. Pressure >25 cm water is one of the modified Dandy criteria for idiopathic intracranial hypertension) . 13 mL of clear, colorless fluid was collected in 4 tubes. IMPRESSION: 1. Successful fluoro-guided lumbar puncture with normal opening pressure of 17 cm. Reviewed, dictated and finalized at location A.
--- NOTE | 2023-04-28 08:39 | ED.NEUROSD ---
HPI - Neuro Symptoms/Deficit General Chief Complaint: Neuro Symptoms/Deficit Stated Complaint: Numbness Time Seen by Provider: 04/28/23 08:39 Source: patient Mode of arrival: ambulatory Limitations: no limitations History of Present Illness HPI Narrative: Patient is a 48-year-old female with a history of hypertension, anxiety, presenting to the ER for evaluation of worsening bilateral lower extremity weakness. Patient reports weakness that began in her toes last Wednesday and is now extending up into her abdomen. Patient reports a tingling sensation as if everything has been anesthetized. Patient denies shortness of breath, chest pain. She has had some difficulty ambulating secondary to this with 2 ground-level falls this week. Patient reports falling on Wednesday after she missed stepped on a curb outside, landing onto her right elbow. She reports some right elbow bruising but denies any significant pain with movement. She denies any loss of strength in her upper extremities. No facial droop or asymmetry. She denies headache. She does report slightly increased blurry vision from baseline but has been able to read without difficulty. She denies facial numbness, difficulty with speech. Recent medication changes. No recent vaccinations. Denies recent viral illnesses or upper respiratory infections. Denies recent cough, cold. She denies chest pain, pleuritic pain, shortness of breath. Related Data Home Medications Medication Instructions Recorded Confirmed hydroxyzine HCl 10 mg tablet 10 mg PO TID PRN Anxiety 09/23/22 04/21/23 sertraline 100 mg tablet 100 mg PO DAILY 01/07/23 04/21/23 Allergies Allergy/AdvReac Type Severity Reaction Status Date / Time azithromycin Allergy Intermediate Hives Verified 04/28/23 07:57 erythromycin base Allergy Intermediate Hives Verified 04/28/23 07:57 morphine Allergy Intermediate Hives Verified 04/28/23 07:57 NSAIDS (Non-Steroidal AdvReac Intermediate Gastrointestinal Verified 04/28/23 07:57 Anti-Inflamma Upset Review of Systems Review of Systems: CONSTITUTIONAL: Denies fever CARDIOVASCULAR: Denies chest pain RESPIRATORY: Denies cough or dyspnea. GASTROINTESTINAL: Denies abdominal pain SKIN: Denies rash MUSCULOSKELETAL: Denies back pain NEUROLOGIC: Denies headache PMFSH Past Medical History Medical History Anxiety Asthma Depression Hyperlipidemia Hypertension Plantar fasciitis Surgical History Surgical History History of appendectomy History of History of sleeve gastrectomy 2016 Family History Family History Mother Diabetes mellitus Hypertension Heart disease Father Hypertension Cerebrovascular accident Other Family history of cardiovascular disease Social History Social History Social History: Caffeine-tea occasionally Smoking packs per day: 1 Smoking cigarettes per day: 20.0 Years smoked: 13 Smoking pack-years: 13.00 Smoking status: Former smoker Tobacco type: cigarettes Smoking end date: 11/01/04 Alcohol intake: current Drinks per week: 12 Alcohol use details: DRINKS Substance use: never Substance use type: does not use Lack of Transportation: No Lack of Food: Never True Current Housing: I Have Housing Concerned About Future Housing: No Difficulty Paying Gas/Electric Bills: No Difficulty Paying for Meds: No Currently Unemployed: No Education: High School Diploma/GED Difficulty w/ Childcare or Family Care: No Living arrangements: with family Spiritual care concerns: No Exam Narrative: GENERAL: Awake, alert, conversant HEAD: Normocephalic, atraumatic. EYES: PERRLA and EOMI. ENT: Nares clear, no rhinorrhea or epistaxis. Mucous membranes moist. NECK: Supple. MIRI
--- NOTE | 2023-04-28 08:41 | ECG_ITS ---
Measurements Intervals [place] Rate: 92 P: 72 [place]: 130 QRS: -1 QRSD: 81 T: -3 QT: 378 QTc: 470 Interpretive Statements SINUS RHYTHM POSSIBLE LEFT ATRIAL ENLARGEMENT [-0.1mV P WAVE IN V1/V2] NONSPECIFIC T-WAVE ABNORMALITY ABNORMAL ECG COMPARED TO ECG 04/16/2023 14:53:41 NO SIGNIFICANT CHANGES Electronically Signed On 04-28-2023 12:00:23 CDT by Keenan Juarez M.D.
[2023-04-28 09:03] LABS: Basophils Absolute Auto 0.1 K/mm3 (0.0-0.1); Basophils Percent Auto 1.2 % (0.2-1.2); Eosinophils Absolute Auto 0.1 K/mm3 (0-0.3); Eosinophils Percent Auto 0.7 % (0-4.4); Hematocrit 38.4 % (37.0-47.0); Hemoglobin 12.8 g/dL (12.0-15.0); Immature Granulocyte Absolute 0.05 K/mm3 (0.00-0.031); Immature Granulocyte Percent A 0.6 % (0-0.5); Lymphocytes Absolute Auto 1.92 K/mm3 (0.9-3.2); Lymphocytes Percent Auto 21.3 % (18.3-44.2); Mean Corpuscular HGB Conc 33.3 g/dl (32-36); Mean Corpuscular Hemoglobin 33.6 pg (26-34); Mean Corpuscular Volume 100.8 fl (80-100); Monocytes Absolute Auto 0.7 K/mm3 (0.1-0.6); Monocytes Percent Auto 7.9 % (2.6-8.5); Neutrophils Absolute Auto 6.2 K/mm3 (1.3-6.7); Neutrophils Percent Auto 68.3 % (45.5-73.1); Platelet Count Result 238 k/mm3 (150-375); Red Blood Count 3.81 M/mm3 (4.2-5.4); Red Cell Distribution Width 13.9 % (11.5-14.5)
[2023-04-28 09:13] LABS: Alanine Aminotransferase 83 U/L (6-35); Albumin Level 3.4 g/dL (3.5-5.1); Alkaline Phosphatase 186 U/L (38-126); Anion Gap 8 mmol/L (8-16); Aspartate Amino Transferase 169 U/L (14-36); Bilirubin,Total 1.5 mg/dL (0.2-1.3); Blood Urea Nitrogen 7 mg/dL (7-17); Carbon Dioxide 29 mmol/L (22-30); Chloride 101 mmol/L (98-107); Estimated CRCL calculation 118 ml/min; Estimated Glomerular Filt Rate > 60; Glucose 111 mg/dL (65-110); Potassium 3.7 mmol/L (3.4-5.0); Sodium 138 mmol/L (137-145)
[2023-04-28 09:14] LABS: INR 0.9; Partial Thromboplastin Time 24.5 SECONDS (22.3-36.8)
[2023-04-28 09:24] LABS: Troponin I < 0.012 ng/mL (0.000-0.034)
--- NOTE | 2023-04-28 09:29 | PC.NURSE ---
Pt to CT scan via stretcher at this time.
[2023-04-28] MEDS: lisinopriL 20 MG TABLET 40 MG PO (11:41)
--- NOTE | 2023-04-28 12:51 | ADMGEN ---
This patient, Jennifer Moss, was admitted to [facility] Surg Room 314-01. Patient/family oriented to hospital policies and general routines including ID bracelet, bed and alarms, visiting hours, pain management, procedures, bathroom and other care routines, personal items, smoking policy, room service/diet, and visiting hours. Information on how to activate the Rapid Response Team has been discussed. Patient/Family are encouraged to report perceived risks to care and to ask questions if they do not understand what they are told or what they should do. Report from Neha in ER.
--- NOTE | 2023-04-28 14:57 | PM.IMHP ---
H&P: HPI History of Present Illness Date/Time: 04/28/23 14:57 Chief Complaint: lower extremity weakness and numbness and tingling Narrative: Patient is a 48-year-old female with a past medical history of a retention, anxiety, depression who presented to the ED with complaints of bilateral lower extremity weakness along with numbness and tingling that has radiated up to her abdomen. patient stated this all started last when she came in and they told her that it was our electrolytes were not balanced. They gave her Mag and potassium and sent her home however she has had more issues. She stated that the numbness and tingling is now in her chest and that she has fallen multiple times related to not being able to feel her feet. She stated that she feels like she is at the dentist and they numb her whole body. She also stated that she was having some chest tightness and heaviness as her chest just feels numb. She denies any kind and basal droop, weakness, recent illnesses, or unilateral weakness. She also denies any nausea, vomiting, constipation, sweats, fevers, chills or abdominal pain. She did state that she has been having a little diarrhea however nothing too bad. She also stated that she has been lightheaded and dizzy weak fatigued. As she was concerned about her alcohol use may be being the reason this is happening however explained her this is not related. She did state that she drinks half to a pt a day and she has been working with her primary care provider to rectify this situation. Spoke with patient explained to her how the disease process works when it comes to [place] as this is where neurology is leaning towards. Patient did verbalize understanding and did elect to her friend Heike tian to be her surrogate in the event that she could get intubated. Patient did verbalize understanding all questions were answered at that time. Will transfer patient down to IMU for further care related to closer need for respiratory status. Patient is being admitted to the hospitalist service under observation Review of Systems Review of Systems: 12 systems reviewed and are negative unless otherwise noted in the HPI [facility] Past Medical History Medical History Anxiety Asthma Depression Extremity numbness Gait difficulty Hyperlipidemia Hypertension Numbness and tingling Plantar fasciitis Surgical History Surgical History History of appendectomy History of History of sleeve gastrectomy 2016 Family History Family History Mother Diabetes mellitus Heart disease Hypertension Father Hypertension Cerebrovascular accident Cancer Social History Social History (Updated 04/29/23 @ 13:31 by LUIS Zambrano) Social History: patient does live at home with her children. She does elect her friend Heike to be her serum get she is and/. Smoking packs per day: 1 Smoking cigarettes per day: 20.0 Years smoked: 13 Smoking pack-years: 13.00 Smoking status: Former smoker Tobacco type: cigarettes Smoking end date: 11/01/04 Alcohol intake: current Drinks per week: 7 Alcohol use details: Drinks about a pt to half a pt of spirits today Substance use: never Substance use type: does not use Lack of Transportation: No Lack of Food: Never True Current Housing: I Have Housing Concerned About Future Housing: No Difficulty Paying Gas/Electric Bills: No Difficulty Paying for Meds: No Currently Unemployed: No Education: High School Diploma/GED Difficulty w/ Childcare or Family Care: No Living arrangements: with family Occupation/Education: occupation 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
--- NOTE | 2023-04-28 15:22 | WPDNEURCNPN ---
Assessment and Plan Assessment and plan (1) Lower extremity weakness: Code(s): R29.898 - Other symptoms and signs involving the musculoskeletal system Status: Acute (2) Leg paresthesia: Code(s): R20.2 - Paresthesia of skin Status: Acute (3) Frequent falls: Code(s): R29.6 - Repeated falls Status: Acute Plan Ms. Moss is a 48 year old female with a history of HTN, HLD presenting with ascending paraesthesias and weakness. Concern for Gu[place] given constellation of symptoms. MRI of complete spine was negative for any cord lesion to suggest transverse myelitis. There was no enhancement of nerve roots either. Will need LP for CSF studies for further evaluation of etiology. - Will start IVIG empirically -- discussed with patient -- she is agreeable (2g/kg divided by 5 days -- 0.4g/kg/day) - Will need LP for CSF studies -- looking for cytoalbuminologic dissociation - Recommend transfer to ICU for close vitals monitoring -- risk for autonomic dysfunction with GBS - q2 neuro checks, q4 NIFs - Plan discussed with hospitalist Consult date: 04/28/23 Reason for consult: Ascending numbness/weakness HPI: Jennifer Moss is a 48 year old female with a history of HTN, HLD presenting due to lower extremity weakness and numbness. Patient first started experiencing numbness and tingling in her feet about a week ago. Since then the paraesthesias and numbness have extended up to her chest area. She has also been having lower extremity weakness and has fallen twice prior to admission. She has mild sensory loss in her upper extremities but no significant weakness. She denies any preceding viral illness. She denies any bladder or bowel incontinence. She denies any dysphagia, dysarthria, double vision. 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 When she was evaluated in the ED her exam was significant for sensory loss in the lower extremities but intact strength. CT head and CTA brain/carotid were unrevealing. IgA level from 2021 was 568. Since admission her blood pressure has ranged from 130-170s. Her HR has been up to the 100s. She denies any breathing difficulties. MRI cervical, thoracic, and lumbar spine with and without contrast were negative for any change signal change involving the spinal cord. Review of Systems Constitutional: Constitutional: Denies chills, Denies fever(s) and Denies weight loss Eyes: Eyes: Denies diplopia and Denies loss of vision ENT: Denies dizziness, Denies hearing loss and Denies tinnitus Cardiovascular: Cardiovascular: Denies chest pain, Denies syncope and Denies dyspnea Respiratory: Respiratory: Denies cough, Denies dyspnea and Denies wheezing Gastrointestinal: Gastrointestinal: Denies abdominal pain, Denies change in bowel habits and Denies vomiting Genitourinary: Genitourinary: Denies urinary incontinence Musculoskeletal: Musculoskeletal: Reports arthralgias and Denies joint swelling Integumentary/Breasts: Skin/Breast: Denies new lesions and Denies rash Neurologic: Reports as per HPI, Denies dizziness, Denies syncope and Denies loss of vision Psychiatric: Psychiatric: Reports anxiety and Denies depression Endocrine: Endocrine: Denies cold intolerance and Denies heat intolerance Hematologic/Lymphatic: Hematologic/Lymphatic: Denies easy bleeding and Denies easy bruising Allergic/Immunologic: Allergic/Immunologic: Denies no additional allergic/immunologic complaints and Denies wheezing PMFSH Past Medical History Medical History Anxiety Asthma Depression Extremity numbness Gait difficulty Hyperlipidemia Hypertension Numbness and tingling Plantar fasciitis Surgical History Surgical History History of appendectomy History of History of sleeve gastrectomy 2015 Family History Family History (Reviewed 04/28/23 @ 18:35 by
[2023-04-28 15:53] LABS: Glucose Point of Care 117 mg/dl (65-105)
[2023-04-28] MEDS: MAGNESIUM OXIDE 400 MG TABLET PO (16:58)
--- NOTE | 2023-04-28 17:28 | PC.NURSE ---
This patient, Jennifer Moss, was transferred to [imu] on 04/28/23 at 1750. Personal belongings sent with patient. Report given to [Sita]. Appropriate documentation sent with patient.
[2023-04-28 18:23] LABS: Glucose Point of Care 116 mg/dl (65-105)
[2023-04-28 19:04] LABS: Immunoglobulin A 784 mg/dL (70-400); Immunoglobulin G 1073 mg/dL (700-1600); Immunoglobulin M 86 mg/dL (40-230)
[2023-04-28] MEDS: ACETAMINOPHEN 325 MG TABLET 650 MG PO (20:04)
[2023-04-28] MEDS: diphenhydrAMINE HCl CAP 25 MG CAPSULE PO (20:04)
[2023-04-28] MEDS: IMMUNE GLOBULIN IVPB (20:46)
[2023-04-28] MEDS: HYDROcodone/acetaminophen (*CRX) 5-325 MG TABLET 1 TAB PO (22:40)
[2023-04-29] VITALS (22 sets, daily range): BP systolic 126–163; BP diastolic 63–93; PULSE 74–104; RESP 13–23; TEMP 36.4–36.9; O2SAT 96–100; BMI 36.5
[2023-04-29 00:30] LABS: Glucose Point of Care 92 mg/dl (65-105)
[2023-04-29 04:27] LABS: Basophils Absolute Auto 0.1 K/mm3 (0.0-0.1); Basophils Percent Auto 0.8 % (0.2-1.2); Eosinophils Absolute Auto 0.1 K/mm3 (0-0.3); Eosinophils Percent Auto 1.2 % (0-4.4); Hematocrit 33.4 % (37.0-47.0); Hemoglobin 11.4 g/dL (12.0-15.0); Immature Granulocyte Absolute 0.05 K/mm3 (0.00-0.031); Immature Granulocyte Percent A 0.7 % (0-0.5); Lymphocytes Absolute Auto 1.97 K/mm3 (0.9-3.2); Lymphocytes Percent Auto 27.2 % (18.3-44.2); Mean Corpuscular HGB Conc 34.1 g/dl (32-36); Mean Corpuscular Hemoglobin 34.3 pg (26-34); Mean Corpuscular Volume 100.6 fl (80-100); Mean Platelet Volume 9.8 fl (7.4-10.4); Monocytes Absolute Auto 0.6 K/mm3 (0.1-0.6); Monocytes Percent Auto 7.6 % (2.6-8.5); Neutrophils Absolute Auto 4.5 K/mm3 (1.3-6.7); Neutrophils Percent Auto 62.5 % (45.5-73.1); Platelet Count Result 189 k/mm3 (150-375); Red Blood Count 3.32 M/mm3 (4.2-5.4); Red Cell Distribution Width 13.7 % (11.5-14.5); White Blood Count 7.3 K/mm3 (4.5-10.0)
[2023-04-29 04:48] LABS: LDL Cholesterol Direct 120 mg/dL
[2023-04-29 04:51] LABS: Alanine Aminotransferase 61 U/L (6-35); Alkaline Phosphatase 149 U/L (38-126); Anion Gap 4 mmol/L (8-16); Aspartate Amino Transferase 104 U/L (14-36); Bilirubin,Total 1.2 mg/dL (0.2-1.3); Blood Urea Nitrogen 6 mg/dL (7-17); Calcium 8.3 mg/dL (8.4-10.2); Carbon Dioxide 31 mmol/L (22-30); Chloride 103 mmol/L (98-107); Cholesterol 214 mg/dL (0-200); Estimated CRCL calculation 87 ml/min; Estimated Glomerular Filt Rate > 60; Glucose 90 mg/dL (65-110); HDL Direct 47 mg/dL; Magnesium 1.4 mg/dL (1.6-2.3); Potassium 3.3 mmol/L (3.4-5.0); Sodium 138 mmol/L (137-145); Triglycerides 118 mg/dL (<150)
--- NOTE | 2023-04-29 08:13 | WPDCNINT ---
Assessment and Plan Assessment and plan (1) Lower extremity weakness: Code(s): R29.898 - Other symptoms and signs involving the musculoskeletal system Status: Acute Assessment and Plan: Patient presented with ascending lower extremity weakness and numbness up to her abdomen. -CT brain and CTA brain and carotids were negative -MRI of the cervical, thoracic and lumbar spine with and without contrast were negative for any signal changes involving the spinal -concern for Guillain-[place] syndrome given her symptoms -appreciate Neurology evaluation recommendation -patient has been started on IVIG since 04/28/2023 -patient in the ICU for regular neuro checks and NIFs -currently NIFs have been within normal range, no respiratory distress or difficulty breathing, continue to monitor -LP schedule for today, hold Lovenox (2) Elevated liver enzymes: Code(s): R74.8 - Abnormal levels of other serum enzymes Status: Acute Assessment and Plan: Elevated liver enzymes -check hepatitis panel -will obtain right upper quadrant ultrasound -patient does have a history of diffuse hepatic steatosis which was seen on CT abdomen and pelvis on 01/22/2023 -patient also has a history of alcoholism, 7 drinks a week (3) Hypertension: Qualifiers: Hypertension type: primary hypertension Qualified Code(s): I10 - Essential (primary) hypertension Code(s): I10 - Essential (primary) hypertension Status: Acute Assessment and Plan: History of essential hypertension, continue lisinopril (4) Anxiety: Code(s): F41.9 - Anxiety disorder, unspecified Status: Acute Assessment and Plan: Patient has a history of anxiety and depression, continue hydroxyzine and sertraline Plan DVT prophylaxis: Hold Lovenox as LP has been scheduled for today Stress ulcer prophylaxis: Proton Nutrition: Regular diet Code Status: Full Critical Care Time Spent: 51 minutes Due to a high probability of clinically significant, life threatening deterioration, the patient required my highest level of preparedness to intervene emergently and I personally spent this critical care time directly and personally managing the patient. This critical care time included obtaining a history; examining the patient; pulse oximetry; ordering and review of studies; arranging urgent treatment with development of a management plan; evaluation of patient's response to treatment; frequent reassessment; and discussions with other providers. It was exclusive of separately billable procedures and treating other patients and teaching time. Please see Assessment and Plan section and the rest of the note for further information on patient assessment and treatment This dictation may have been done utilizing a voice recognition system. Attempts have been made to correct errors. However, there may be uncorrected grammatical, spelling, and recognitions errors present. [employer] Consult Note Consult date: 04/29/23 Reason for consult: Ascending numbness and weakness, possible Guillain-[place] syndrome HPI: Jennifer Moss is a 48 year old female with significant past medical history of essential hypertension, hyperlipidemia, C depression, asthma, anxiety, plantar fasciitis, history of sleeve gastrectomy, and appendectomy presented to the the ED on 04/28/2023 with complains of bilateral lower extremity weakness, numbness which has been progressing from her toes to her abdomen since 04/21/2023. She stated that there is a tingling sensation and she felt like everything is anesthetized. She also had a fall on 04/23/2023 after she missed a step on the curb landing on her right elbow. She denies any loss of strength in the right upper extremity, no facial droop, no blurring of vision. She denies any preceding where illness stated that she had diarrhea recently for couple of days. She denies any dysphagia, dysarthria, diplopia. On admission shreyas
[2023-04-29] MEDS: POTASSIUM CHLORIDE 20 MEQ ER TABLET 40 MEQ PO (08:22)
[2023-04-29] MEDS: MAGNESIUM SULF 2 GM/WATER 50ML 2 GM/50 ML BAG IVPB (08:23)
[2023-04-29] MEDS: lisinopriL 20 MG TABLET 40 MG PO (08:24)
[2023-04-29] MEDS: PANTOPRAZOLE 40 MG TABLET PO (08:24)
[2023-04-29] MEDS: MAGNESIUM OXIDE 400 MG TABLET PO ×2 (08:24→16:22)
[2023-04-29] MEDS: SERTRALINE HCL 50 MG TABLET 100 MG PO (08:25)
[2023-04-29] MEDS: FOLIC ACID 1 MG TABLET PO (08:25)
[2023-04-29] MEDS: THIAMINE HCL 100 MG TABLET PO (08:25)
[2023-04-29 09:40] LABS: Hepatitis B Surface Antigen Negative (Negative)
[2023-04-29 09:46] LABS: HAV RESULT Negative (Negative); Hepatitis B Core IgM Result Negative (Negative)
[2023-04-29 09:58] LABS: Hepatitis C Virus Antibody Negative (Negative)
[2023-04-29 11:20] LABS: Glucose CSF 54 mg/dL (40-70); Total Protein CSF 57 mg/dL (12-60)
[2023-04-29 11:52] LABS: Glucose Point of Care 114 mg/dl (65-105)
[2023-04-29 11:54] LABS: CSF source CSF
[2023-04-29 11:55] LABS: Appearance CSF Clear (Clear); Color CSF Colorless (Colorless); Nucleated Cell CSF 0 /uL (0-5); Red Blood Cell CSF 0 (0-2)
--- NOTE | 2023-04-29 12:10 | WPDNEUROPN ---
Progress Note: A&P Assessment and Plan (1) Guillain [place]? syndrome: Code(s): G61.0 - Guillain-[place] syndrome Status: Acute (2) Lower extremity weakness: Code(s): R29.898 - Other symptoms and signs involving the musculoskeletal system Status: Acute (3) Leg paresthesia: Code(s): R20.2 - Paresthesia of skin Status: Acute (4) Frequent falls: Code(s): R29.6 - Repeated falls Status: Acute Plan Ms. Moss is a 48 year old female with a history of HTN, HLD presenting with ascending paraesthesias and weakness. Concern for Guillan [place] given constellation of symptoms. MRI of complete spine was negative for any cord lesion to suggest transverse myelitis. There was no enhancement of nerve roots either. CSF studies pending. Exam relatively unchanged from admission. - Continue IVIG (2g/kg divided by 5 days -- 0.4g/kg/day) - Pending CSF studies -- looking for cytoalbuminologic dissociation - q2 neuro checks, q4 NIFs while in ICU Subjective Date/time seen: 04/29/23 12:10 Interval history: Jennifer Moss is a 48 year old female with a history of HTN, HLD presenting due to lower extremity weakness and numbness. Patient first started experiencing numbness and tingling in her feet about a week ago. Since then the paraesthesias and numbness have extended up to her chest area. She has also been having lower extremity weakness and has fallen twice prior to admission. She has mild sensory loss in her upper extremities but no significant weakness. She denies any preceding viral illness. She denies any bladder or bowel incontinence. She denies any dysphagia, dysarthria, double vision. 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 When she was evaluated in the ED her exam was significant for sensory loss in the lower extremities but intact strength. CT head and CTA brain/carotid were unrevealing. IgA level from 2021 was 568. Since admission her blood pressure has ranged from 130-170s. Her HR has been up to the 100s. She denies any breathing difficulties. MRI cervical, thoracic, and lumbar spine with and without contrast were negative for any change signal change involving the spinal cord. Lumbar puncture to be done today. Patient feels about the same. She denies any shortness of breath. Still feeling weak in her lower extremities. No change in numbness. Review of Systems Constitutional: Constitutional: Denies chills, Denies fever(s) and Denies weight loss Eyes: Eyes: Denies diplopia and Denies loss of vision ENT: Denies dizziness, Denies hearing loss and Denies tinnitus Cardiovascular: Cardiovascular: Denies chest pain, Denies syncope and Denies dyspnea Respiratory: Respiratory: Denies cough, Denies dyspnea and Denies wheezing Gastrointestinal: Gastrointestinal: Denies abdominal pain, Denies change in bowel habits and Denies vomiting Genitourinary: Genitourinary: Denies urinary incontinence Musculoskeletal: Musculoskeletal: Reports arthralgias and Denies joint swelling Integumentary/Breasts: Skin/Breast: Denies new lesions and Denies rash Neurologic: Reports as per HPI, Denies dizziness, Denies syncope and Denies loss of vision Psychiatric: Psychiatric: Reports anxiety and Denies depression Endocrine: Endocrine: Denies cold intolerance and Denies heat intolerance Hematologic/Lymphatic: Hematologic/Lymphatic: Denies easy bleeding and Denies easy bruising Allergic/Immunologic: Allergic/Immunologic: Denies no additional allergic/immunologic complaints and Denies wheezing Exam Const: General: comfortable and no acute distress HENMT: Mouth: Yes moist mucous membranes Eyes: Pupils: Equal, round and reactive pupils present Other: L eye esotropia (chronic) Resp: Effort & Inspection: normal respiratory effort Auscultation: clear to auscultation bilaterally Cardio: Rate: regular rate Rhythm: regular rhythm GI: Inspection: distended GI Palp: Yes Soft to
--- NOTE | 2023-04-29 13:25 | PCRCNOTE ---
Patient NIF -100 cmh2o
--- NOTE | 2023-04-29 15:28 | PM.IMPN ---
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 NIF are nl (2) Hyperlipidemia: Qualifiers: Hyperlipidemia type: mixed hyperlipidemia Qualified Code(s): E78.2 - Mixed hyperlipidemia Code(s): E78.5 - Hyperlipidemia, unspecified Status: Acute Assessment and Plan: Continue home medications (3) ETOH abuse: Code(s): F10.10 - Alcohol abuse, uncomplicated Status: Acute Assessment and Plan: CIWA protocol Ativan and Librium on board Plan elevated LFTS US ordered Subjective Date/time seen: 04/29/23 15:28 Interval history: 48-year-old female with a past medical history of a retention, anxiety, depression who presented to the ED with complaints of bilateral lower extremity weakness along with numbness and tingling that has radiated up to her abdomen. patient stated this all started last when she came in and they told her that it was our electrolytes were not balanced.? They gave her Mag and potassium and sent her home however she has had more issues.? She stated that the numbness and tingling is now in her chest and that she has fallen multiple times related to not being able to feel her feet.? She stated that she feels like she is at the dentist and they numb her whole body.Concerns about GBS pt having frequent falls and ascending polyneuropathy. Pt had mris on admission awaiting LP, started on immunoglobulin and seen by neurology and ICU MDS Review of Systems Review of Systems: weakness and numbness in legs ascending bowel and bladder control is good no SOB Exam Narrative: General: well-nourished, well-appearing 48-year-old female, sitting up in bed, comfortable, NARD Neuro: weakness in both legs tingling up to mid chest HEENMT: normocephalic, atraumatic, EOMI, sclerae anicteric, moist oral mucosa Respiratory: Clear to auscultation bilaterally without crackles, rhonchi or wheezes, nonlabored breathing Cardio: regular rate, regular rhythm with S1-S2 Abdomen: nondistended, normoactive bowel sounds, soft, nontender to palpation Extremities: no edema, erythema, or tenderness to palpation, DP pulses 2+ bilaterally Skin: no rashes or lesions, warm and dry Psych: appropriate mood and affect, judgment and insight intact Objective Data Vital Signs Vital Signs: Vital Signs - 24 hr 04/28/23 18:00 04/28/23 20:42 04/28/23 20:44 Temperature Pulse Rate Pulse Rate [Monitor] 99 Respiratory Rate 18 Blood Pressure Pulse Oximetry 100 100 Oxygen Delivery Room Air 04/28/23 20:00 04/28/23 20:00 04/28/23 20:54 Temperature 36.9 C Pulse Rate 86 83 Pulse Rate [Monitor] 91 Respiratory Rate 19 16 Blood Pressure 153/86 H 153/86 H 141/83 H Pulse Oximetry 99 98 Oxygen Delivery 04/28/23 20:00 04/28/23 21:07 04/28/23 20:00 Temperature Pulse Rate 82 84 Pulse Rate [Monitor] Respiratory Rate 14 Blood Pressure 127/84 Pulse Oximetry 98 99 Oxygen Delivery Room Air 04/28/23 22:00 04/28/23 22:00 04/28/23 22:42 Temperature Pulse Rate 83 83 88 Pulse Rate [Monitor] Respiratory Rate 16 20 Blood Pressure 151/86 H 154/98 H Pulse Oximetry 100 100 Oxygen Delivery 04/28/23 21:15 04/28/23 21:30 04/28/23 21:45 Temperature Pulse Rate 82 83 84 Pulse Rate [Monitor] Respiratory Rate 17 18 18 Blood Pressure 145/89 H 145/87 H 153/82 H Pulse Oximetry 99 97 98 Oxygen Delivery 04/29/23 00:14 04/29/23 00:00 04/29/23 00:00 Temperature 36.8 C Pulse Rate 80 Pulse Rate [Monitor] 80 Respiratory Rate 19 Blood Pressure
[2023-04-29] MEDS: ACETAMINOPHEN 500 MG TABLET 1000 MG PO (16:22)
--- NOTE | 2023-04-29 16:31 | PCRCNOTE ---
Patient NIF -100 cmh2o
[2023-04-29 17:45] LABS: Glucose Point of Care 95 mg/dl (65-105)
[2023-04-29] MEDS: ACETAMINOPHEN 325 MG TABLET 650 MG PO (19:37)
[2023-04-29] MEDS: diphenhydrAMINE HCl CAP 25 MG CAPSULE PO (19:38)
[2023-04-30] VITALS (12 sets, daily range): BP systolic 144–169; BP diastolic 79–108; PULSE 72–100; RESP 14–23; TEMP 36.1–36.8; O2SAT 89–100
[2023-04-30 00:20] LABS: Glucose Point of Care 141 mg/dl (65-105)
[2023-04-30 04:40] LABS: Basophils Absolute Auto 0.1 K/mm3 (0.0-0.1); Basophils Percent Auto 1.2 % (0.2-1.2); Eosinophils Absolute Auto 0.1 K/mm3 (0-0.3); Eosinophils Percent Auto 1.5 % (0-4.4); Hematocrit 36.1 % (37.0-47.0); Immature Granulocyte Absolute 0.03 K/mm3 (0.00-0.031); Immature Granulocyte Percent A 0.5 % (0-0.5); Lymphocytes Absolute Auto 1.84 K/mm3 (0.9-3.2); Lymphocytes Percent Auto 27.9 % (18.3-44.2); Mean Corpuscular HGB Conc 33.2 g/dl (32-36); Mean Corpuscular Hemoglobin 33.9 pg (26-34); Mean Platelet Volume 9.8 fl (7.4-10.4); Monocytes Absolute Auto 0.5 K/mm3 (0.1-0.6); Monocytes Percent Auto 7.7 % (2.6-8.5); Neutrophils Percent Auto 61.2 % (45.5-73.1); Platelet Count Result 206 k/mm3 (150-375); Red Blood Count 3.54 M/mm3 (4.2-5.4); Red Cell Distribution Width 13.7 % (11.5-14.5); White Blood Count 6.6 K/mm3 (4.5-10.0)
[2023-04-30 04:53] LABS: Alanine Aminotransferase 53 U/L (6-35); Albumin Level 3.1 g/dL (3.5-5.1); Alkaline Phosphatase 153 U/L (38-126); Anion Gap 5 mmol/L (8-16); Aspartate Amino Transferase 72 U/L (14-36); Bilirubin,Total 0.9 mg/dL (0.2-1.3); Blood Urea Nitrogen 7 mg/dL (7-17); CRP 2.2 mg/dL (<1.0); Calcium 8.6 mg/dL (8.4-10.2); Carbon Dioxide 28 mmol/L (22-30); Chloride 108 mmol/L (98-107); Estimated CRCL calculation 100 ml/min; Estimated Glomerular Filt Rate > 60; Glucose 91 mg/dL (65-110); Magnesium 1.9 mg/dL (1.6-2.3); Phosphorus 3.5 mg/dL (2.5-4.5); Potassium 3.7 mmol/L (3.4-5.0); Sodium 141 mmol/L (137-145)
--- NOTE | 2023-04-30 08:10 | PM.IMPN ---
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 MRI of the spine showed no stenosis Pt to have LP 04/30 NIF are nl (2) Hyperlipidemia: Qualifiers: Hyperlipidemia type: mixed hyperlipidemia Qualified Code(s): E78.2 - Mixed hyperlipidemia Code(s): E78.5 - Hyperlipidemia, unspecified Status: Acute Assessment and Plan: Continue home medications (3) ETOH abuse: Code(s): F10.10 - Alcohol abuse, uncomplicated Status: Acute Assessment and Plan: CIWA protocol Ativan and Librium on board Plan elevated LFTS, US ordered DVT prophylaxis with SCDs GI prophylaxis not indicated Code status full code Subjective Date/time seen: 04/30/23 08:10 Interval history: 48-year-old female with a past medical history of a retention, anxiety, depression who presented to the ED with complaints of bilateral lower extremity weakness along with numbness and tingling that has radiated up to her abdomen, concerning for GBS/polyneuropathy, being seen by neuro, getting IV Ig. No overnight events noted. No chest pain or shortness of breath. No nausea, vomiting or diarrhea. No fevers or chills. Review of Systems Review of Systems: 12 point review of systems was assessed and was negative except as noted in the HPI Exam Narrative: General: well-nourished, well-appearing 48-year-old female, sitting up in bed, comfortable, NARD Neuro: weakness in both legs tingling up to mid chest HEENMT: normocephalic, atraumatic, EOMI, sclerae anicteric, moist oral mucosa Respiratory: Clear to auscultation bilaterally without crackles, rhonchi or wheezes, nonlabored breathing Cardio: regular rate, regular rhythm with S1-S2 Abdomen: nondistended, normoactive bowel sounds, soft, nontender to palpation Extremities: no edema, erythema, or tenderness to palpation, DP pulses 2+ bilaterally Skin: no rashes or lesions, warm and dry Psych: appropriate mood and affect, judgment and insight intact Objective Data Vital Signs Vital Signs: Vital Signs - 24 hr 04/29/23 10:00 04/29/23 10:00 04/29/23 09:55 Temperature Pulse Rate 101 H 101 H 104 H Pulse Rate [Monitor] Respiratory Rate 18 23 H Blood Pressure 150/93 H 144/83 H Pulse Oximetry 98 98 Oxygen Delivery 04/29/23 10:50 04/29/23 12:00 04/29/23 12:00 Temperature Pulse Rate 89 79 Pulse Rate [Monitor] 79 Respiratory Rate 14 Blood Pressure 144/85 H Pulse Oximetry 99 Oxygen Delivery 04/29/23 12:00 04/29/23 12:00 04/29/23 13:24 Temperature 98.3 F Pulse Rate 79 79 Pulse Rate [Monitor] Respiratory Rate 13 13 Blood Pressure 163/84 H Pulse Oximetry 100 100 100 Oxygen Delivery Room Air 04/29/23 14:00 04/29/23 14:00 04/29/23 16:00 Temperature Pulse Rate 86 86 87 Pulse Rate [Monitor] Respiratory Rate 14 Blood Pressure 140/69 Pulse Oximetry 99 Oxygen Delivery 04/29/23 16:00 04/29/23 16:00 04/29/23 18:00 Temperature 98 F Pulse Rate 87 87 83 Pulse Rate [Monitor] Respiratory Rate 16 16 Blood Pressure 138/69 Pulse Oximetry 98 98 Oxygen Delivery Room Air 04/29/23 18:00 04/29/23 20:00 04/29/23 20:00 Temperature 98.1 F Pulse Rate 84 88 88 Pulse Rate [Monitor] Respiratory Rate 14 18 Blood Pressure 139/76 143/73 H Pulse Oximetry 98 98 Oxygen Delivery 04/29/23 20:00 04/29/23 20:45 04/29/23 22:00 Temperature Pulse Rate 75 Pulse Rate [Monitor] 88 Respiratory Rate Blood Pressure Pulse Oximetry 96 Oxygen Delivery 04/29/23 22:00 04/29/23 23:56 04/29/23 20:45 Temperature Pulse Rate 75 Pulse Rate [Monitor]
--- NOTE | 2023-04-30 08:23 | PCRCNOTE ---
Addendum entered by Netta Godinez, APPLICATIONS TRAINER 04/30/23 11:59: Patient's NIF: -100 cmH20 Original Note: Patient's NIF: 100 cmh20
[2023-04-30] MEDS: MAGNESIUM OXIDE 400 MG TABLET PO ×2 (08:28→16:58)
[2023-04-30] MEDS: SERTRALINE HCL 50 MG TABLET 100 MG PO (08:28)
[2023-04-30] MEDS: lisinopriL 20 MG TABLET 40 MG PO (08:29)
[2023-04-30] MEDS: THIAMINE HCL 100 MG TABLET PO (08:29)
[2023-04-30] MEDS: PANTOPRAZOLE 40 MG TABLET PO (08:29)
[2023-04-30] MEDS: FOLIC ACID 1 MG TABLET PO (08:29)
--- NOTE | 2023-04-30 08:32 | WPDINTPN ---
Progress Note: A&P Assessment and Plan (1) Lower extremity weakness: Code(s): R29.898 - Other symptoms and signs involving the musculoskeletal system Status: Acute Assessment and Plan: Patient presented with ascending lower extremity weakness and numbness up to her abdomen. -CT brain and CTA brain and carotids were negative -MRI of the cervical, thoracic and lumbar spine with and without contrast were negative for any signal changes involving the spinal -concern for Guillain-[place] syndrome given her symptoms -appreciate Neurology evaluation recommendation -patient has been started on IVIG since 04/28/2023 -patient in the ICU for regular neuro checks and NIFs -currently NIFs have been within normal range, no respiratory distress or difficulty breathing, continue to monitor -04/29: LP was done, unremarkable (2) Elevated liver enzymes: Code(s): R74.8 - Abnormal levels of other serum enzymes Status: Acute Assessment and Plan: Elevated liver enzymes -04/29: Hepatitis panel was negative -04/29: RUQ ultrasound showed echogenic liver, most commonly due to steatosis but also can be seen with hepatitis and fibrosis -patient does have a history of diffuse hepatic steatosis which was seen on CT abdomen and pelvis on 01/22/2023 -patient also has a history of alcohol use, 7 drinks a week -continue CIWA protocol -continue p.r.n. chlordiazepoxide -continue folic acid and thiamine (3) Hypertension: Qualifiers: Hypertension type: primary hypertension Qualified Code(s): I10 - Essential (primary) hypertension Code(s): I10 - Essential (primary) hypertension Status: Acute Assessment and Plan: History of essential hypertension, continue lisinopril (4) Anxiety: Code(s): F41.9 - Anxiety disorder, unspecified Status: Acute Assessment and Plan: Patient has a history of anxiety and depression, continue hydroxyzine and sertraline Plan DVT prophylaxis: SCDs, will check with intervention radiology 1 with they would like to resume Lovenox and she had an LP on 04/29 Stress ulcer prophylaxis: Protonix Nutrition: Regular diet Code Status: Full Critical Care Time Spent: 31 minutes Due to a high probability of clinically significant, life threatening deterioration, the patient required my highest level of preparedness to intervene emergently and I personally spent this critical care time directly and personally managing the patient. This critical care time included obtaining a history; examining the patient; pulse oximetry; ordering and review of studies; arranging urgent treatment with development of a management plan; evaluation of patient's response to treatment; frequent reassessment; and discussions with other providers. It was exclusive of separately billable procedures and treating other patients and teaching time. Please see Assessment and Plan section and the rest of the note for further information on patient assessment and treatment This dictation may have been done utilizing a voice recognition system. Attempts have been made to correct errors. However, there may be uncorrected grammatical, spelling, and recognitions errors present. Subjective Date/time seen: 04/30/23 08:32 Interval history: Reason for consult: Ascending numbness and weakness, possible Guillain-[place] syndrome 48-year-old female with a past medical history of a retention, anxiety, depression who presented to the ED with complaints of bilateral lower extremity weakness along with numbness and tingling that has radiated up to her abdomen, concerning for GBS/polyneuropathy. 04/28: Started IVIG 04/29: Lumbar puncture 04/30/2023: Patient seen and examined the ICU, no issues overnight, hemodynamically stable, adequate urine output, afebrile. Patient states she feels slightly better, denies any chest pain, shortness of breath, abdominal pain, nausea, vomiting. She did get a lumbar puncture yester
--- NOTE | 2023-04-30 09:52 | WPDNEUROPN ---
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 Moss is a 48 year old female with a history of HTN, HLD presenting with ascending paraesthesias and weakness. Concern for Guillan [place] given constellation of symptoms. MRI of complete spine was negative for any cord lesion to suggest transverse myelitis. There was no enhancement of nerve roots either. CSF were completely normal -- could theoretically be early in disease process. - Continue IVIG (2g/kg divided by 5 days -- 0.4g/kg/day) - Ok to transfer out of ICU, will keep on telemetry - Will need PT evaluation Subjective Date/time seen: 04/30/23 09:52 Interval history: Jennifer Moss is a 48 year old female with a history of HTN, HLD presenting due to lower extremity weakness and numbness. Patient first started experiencing numbness and tingling in her feet about a week ago. Since then the paraesthesias and numbness have extended up to her chest area. She has also been having lower extremity weakness and has fallen twice prior to admission. She has mild sensory loss in her upper extremities but no significant weakness. She denies any preceding viral illness. She denies any bladder or bowel incontinence. She denies any dysphagia, dysarthria, double vision. 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 When she was evaluated in the ED her exam was significant for sensory loss in the lower extremities but intact strength. CT head and CTA brain/carotid were unrevealing. IgA level from 2021 was 568. Since admission her blood pressure has ranged from 130-170s. Her HR has been up to the 100s. She denies any breathing difficulties. MRI cervical, thoracic, and lumbar spine with and without contrast were negative for any change signal change involving the spinal cord. CSF studies completely normal. Patient feels a little better today. Sensation is about the same. Vitals and NIFs have been stable. Review of Systems Constitutional: Constitutional: Denies chills, Denies fever(s) and Denies weight loss Eyes: Eyes: Denies diplopia and Denies loss of vision ENT: Denies dizziness, Denies hearing loss and Denies tinnitus Cardiovascular: Cardiovascular: Denies chest pain, Denies syncope and Denies dyspnea Respiratory: Respiratory: Denies cough, Denies dyspnea and Denies wheezing Gastrointestinal: Gastrointestinal: Denies abdominal pain, Denies change in bowel habits and Denies vomiting Genitourinary: Genitourinary: Denies urinary incontinence Musculoskeletal: Musculoskeletal: Reports arthralgias and Denies joint swelling Integumentary/Breasts: Skin/Breast: Denies new lesions and Denies rash Neurologic: Reports as per HPI, Denies dizziness, Denies syncope and Denies loss of vision Psychiatric: Psychiatric: Reports anxiety and Denies depression Endocrine: Endocrine: Denies cold intolerance and Denies heat intolerance Hematologic/Lymphatic: Hematologic/Lymphatic: Denies easy bleeding and Denies easy bruising Allergic/Immunologic: Allergic/Immunologic: Denies no additional allergic/immunologic complaints and Denies wheezing Exam Const: General: comfortable and no acute distress HENMT: Mouth: Yes moist mucous membranes Eyes: Pupils: Equal, round and reactive pupils present Other: L eye esotropia (chronic) Resp: Effort & Inspection: normal respiratory effort Auscultation: clear to auscultation bilaterally Cardio: Rate: regular rate Rhythm: regular rhythm GI: Inspection: distended GI Palp: Yes Soft to palpation Skin: General skin exam: normal colo
--- NOTE | 2023-04-30 11:22 | PCFNICU ---
ICU Rounding Note: Pt current nutrition is Regular. Last recorded weight is 87.6 kg. Bowel Motility:+BM reported 04/30 Labs Reviewed:Alb 3.1,Hct 36.1 Meds Noted:Protonix, Thiamine, Folic Acid Skin: WNL Additional Notes: Patient remains on a regular diet with nutritional ice cream once daily. Oral Intake has been good about 75% of meals. Agree with diet orders. Following daily in ICU rounds. RD will monitor weight, labs,skin, oral intake every 7 days.
--- NOTE | 2023-04-30 11:59 | PCRCNOTE ---
Patient's NIF: -100 cmH20
[2023-04-30] MEDS: ACETAMINOPHEN 325 MG TABLET 650 MG PO (19:31)
[2023-04-30] MEDS: diphenhydrAMINE HCl CAP 25 MG CAPSULE PO (19:32)
[2023-04-30] MEDS: hydrOXYzine HCL 10 MG TABLET PO (21:48)
[2023-05-01] VITALS (14 sets, daily range): BP systolic 136–149; BP diastolic 80–93; PULSE 70–101; RESP 16–22; TEMP 36.2–37.1; O2SAT 98–100
--- NOTE | 2023-05-01 00:55 | PC.NURSE ---
This patient, Jennifer Moss, was transferred to [[facility]] on 05/01/23 at 0045. Personal belongings sent with patient. Report given to [MARY Duran]. Appropriate documentation sent with patient.
--- NOTE | 2023-05-01 08:16 | PM.IMPN ---
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 Status: Acute Assessment and Plan: Cont IV Ig, appreciate neuro consult unchanged PT/OT (2) Hyperlipidemia: Qualifiers: Hyperlipidemia type: mixed hyperlipidemia Qualified Code(s): E78.2 - Mixed hyperlipidemia Code(s): E78.5 - Hyperlipidemia, unspecified Status: Acute Assessment and Plan: Continue home medications (3) ETOH abuse: Code(s): F10.10 - Alcohol abuse, uncomplicated Status: Acute Assessment and Plan: CIWA protocol no longer needed, 0 for awhile, will d/c Cont thiamine and folate Plan Elevated LFTs with steatosis noted on US, suspect LEW DVT prophylaxis with SCDs GI prophylaxis not indicated Code status full code Subjective Date/time seen: 05/01/23 08:16 Interval history: 48-year-old female with a past medical history of a retention, anxiety, depression who presented to the ED with complaints of bilateral lower extremity weakness along with numbness and tingling that has radiated up to her abdomen, concerning for GBS/polyneuropathy, being seen by neuro, getting IV Ig. No overnight events noted. No chest pain or shortness of breath. No nausea, vomiting or diarrhea. No fevers or chills. Sensory symptoms unchanged. Review of Systems Review of Systems: 12 point review of systems was assessed and was negative except as noted in the HPI Exam Narrative: General: No acute distress, alert and oriented per baseline HEENT: Atraumatic, normocephalic, mucous membranes moist CV: Regular rate and rhythm, S1, S2 Lungs: Clear to auscultation bilaterally, no rales or crackles noted, no wheezes, good air entry Abdomen: Soft, nontender, nondistended Extremities: Normal to inspection Skin: No rashes noted, no lesions or wounds seen Psych: Euthymic, normal affect Neuro: Cranial nerves 2-12 grossly intact, strength +5/5 upper and lower extremities bilaterally, sensation is dulled from chest downwards, unchanged Objective Data Vital Signs Vital Signs: Vital Signs - 24 hr 04/30/23 08:24 04/30/23 10:00 04/30/23 10:00 Temperature Pulse Rate 97 81 81 Pulse Rate [Monitor] Respiratory Rate 18 20 Blood Pressure 162/108 H Pulse Oximetry 99 99 Oxygen Delivery Room Air 06/30/23 12:00 04/30/23 12:00 04/30/23 16:00 Temperature 97 F L Pulse Rate 96 96 88 Pulse Rate [Monitor] Respiratory Rate 16 Blood Pressure 158/79 H Pulse Oximetry 99 Oxygen Delivery 04/30/23 16:00 04/30/23 20:00 04/30/23 20:00 Temperature 97.9 F Pulse Rate 88 87 Pulse Rate [Monitor] 85 Respiratory Rate 14 Blood Pressure 155/99 H Pulse Oximetry 99 Oxygen Delivery 04/30/23 20:00 04/30/23 20:51 04/30/23 23:33 Temperature 98.2 F Pulse Rate 87 95 Pulse Rate [Monitor] Respiratory Rate 14 22 H Blood Pressure 151/80 H Pulse Oximetry 99 89 L 98 Oxygen Delivery Room Air 04/30/23 23:35 05/01/23 00:00 05/01/23 01:07 Temperature Pulse Rate 85 85 Pulse Rate [Monitor] 88 Respiratory Rate 22 H Blood Pressure 151/80 H Pulse Oximetry 98 Oxygen Delivery Room Air 05/01/23 01:08 05/01/23 03:33 05/01/23 04:00 Temperature 98.7 F Pulse Rate 80 81 Pulse Rate [Monitor] 88 Respiratory Rate 20 Blood Pressure 149/93 H 149/93 H Pulse Oximetry 98 Oxygen Delivery 05/01/23 05:32 Temperature 97.1 F L Pulse Rate 76 Pulse Rate [Monitor] Respiratory Rate 20 Blood Pressure 142/80 H Pulse Oximetry 100 Oxygen Delivery Intake/Output Intake/Output: Intake & Output 04/28/23 04/29/23 04/30/23 05/01/23 23:59 23:59 23:59 23:59 Intake Total 610 20790 1750 Output Total 1999 2599 Balance 610 80 -530 1750 Meds/Results Medications: Active Medications Generic Name Dose Route Start Last Admin Trade Name Freq PRN Reason Stop D
[2023-05-01] MEDS: FOLIC ACID 1 MG TABLET PO (08:31)
[2023-05-01] MEDS: SERTRALINE HCL 50 MG TABLET 100 MG PO (08:31)
[2023-05-01] MEDS: lisinopriL 20 MG TABLET 40 MG PO (08:31)
[2023-05-01] MEDS: THIAMINE HCL 100 MG TABLET PO (08:31)
[2023-05-01] MEDS: PANTOPRAZOLE 40 MG TABLET PO (08:31)
[2023-05-01] MEDS: MAGNESIUM OXIDE 400 MG TABLET PO ×2 (08:31→16:51)
--- NOTE | 2023-05-01 08:32 | PCRCNOTE ---
Patient's NIF: -100 cmH20
--- NOTE | 2023-05-01 10:04 | WPDNEUROPN ---
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 Moss is a 48 year old female with a history of HTN, HLD presenting with ascending paraesthesias and weakness. Concern for Guillan [place] given constellation of symptoms. MRI of complete spine was negative for any cord lesion to suggest transverse myelitis. There was no enhancement of nerve roots either. CSF were completely normal -- could theoretically be early in disease process. - Continue IVIG (2g/kg divided by 5 days -- 0.4g/kg/day) -- tomorrow will be last dose. - Will need PT evaluation - Close Neurology follow-up after discharge Subjective Date/time seen: 05/01/23 10:04 Interval history: Jennifer Moss is a 48 year old female with a history of HTN, HLD presenting due to lower extremity weakness and numbness. Patient first started experiencing numbness and tingling in her feet about a week ago. Since then the paraesthesias and numbness have extended up to her chest area. She has also been having lower extremity weakness and has fallen twice prior to admission. She has mild sensory loss in her upper extremities but no significant weakness. She denies any preceding viral illness. She denies any bladder or bowel incontinence. She denies any dysphagia, dysarthria, double vision. 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 When she was evaluated in the ED her exam was significant for sensory loss in the lower extremities but intact strength. CT head and CTA brain/carotid were unrevealing. IgA level from 2021 was 568. Since admission her blood pressure has ranged from 130-170s. Her HR has been up to the 100s. She denies any breathing difficulties. MRI cervical, thoracic, and lumbar spine with and without contrast were negative for any change signal change involving the spinal cord. CSF studies completely normal. Transferred to floors from ICU. Tolerating IVIG. Strength seems a little worse today. She has been working with PT. Review of Systems Constitutional: Constitutional: Denies chills, Denies fever(s) and Denies weight loss Eyes: Eyes: Denies diplopia and Denies loss of vision ENT: Denies dizziness, Denies hearing loss and Denies tinnitus Cardiovascular: Cardiovascular: Denies chest pain, Denies syncope and Denies dyspnea Respiratory: Respiratory: Denies cough, Denies dyspnea and Denies wheezing Gastrointestinal: Gastrointestinal: Denies abdominal pain, Reports bloating, Denies change in bowel habits, Reports constipation and Denies vomiting Genitourinary: Genitourinary: Denies urinary incontinence Musculoskeletal: Musculoskeletal: Reports arthralgias and Denies joint swelling Integumentary/Breasts: Skin/Breast: Denies new lesions and Denies rash Neurologic: Reports as per HPI, Denies dizziness, Denies syncope and Denies loss of vision Psychiatric: Psychiatric: Reports anxiety and Denies depression Endocrine: Endocrine: Denies cold intolerance and Denies heat intolerance Hematologic/Lymphatic: Hematologic/Lymphatic: Denies easy bleeding and Denies easy bruising Allergic/Immunologic: Allergic/Immunologic: Denies no additional allergic/immunologic complaints and Denies wheezing Exam Const: General: comfortable and no acute distress HENMT: Mouth: Yes moist mucous membranes Eyes: Pupils: Equal, round and reactive pupils present Other: L eye esotropia (chronic) Resp: Effort & Inspection: normal respiratory effort Auscultation: clear to auscultation bilaterally Cardio: Rate: regular rate Rhythm: regular rhythm GI: Inspection: dis
[2023-05-01] MEDS: diphenhydrAMINE HCl CAP 25 MG CAPSULE PO (19:24)
[2023-05-01] MEDS: ACETAMINOPHEN 325 MG TABLET 650 MG PO (19:24)
[2023-05-01] MEDS: HYDROcodone/acetaminophen (*CRX) 5-325 MG TABLET 1 TAB PO (23:26)
[2023-05-01] MEDS: hydrOXYzine HCL 10 MG TABLET PO (23:27)
--- NOTE | 2023-05-01 23:35 | PC.NURSE ---
discussed pt c/o restless legs with DO Hopen, no further medication ordered at this time concerns about pt respiratory drive with possible GBS. Will continue to monitor.
[2023-05-02] VITALS (9 sets, daily range): BP systolic 141–159; BP diastolic 71–92; PULSE 68–100; RESP 16–20; TEMP 36.3–37.1; O2SAT 98–100
[2023-05-02] MEDS: THIAMINE HCL 100 MG TABLET PO (08:57)
[2023-05-02] MEDS: PANTOPRAZOLE 40 MG TABLET PO (08:58)
[2023-05-02] MEDS: FOLIC ACID 1 MG TABLET PO (08:58)
[2023-05-02] MEDS: MAGNESIUM OXIDE 400 MG TABLET PO ×2 (08:58→18:46)
[2023-05-02] MEDS: SERTRALINE HCL 50 MG TABLET 100 MG PO (08:58)
[2023-05-02] MEDS: lisinopriL 20 MG TABLET 40 MG PO (08:58)
--- NOTE | 2023-05-02 15:16 | WPDPN ---
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 will continue PT/OT, patient will be seen by neurologist and further recommendation to follow. (2) Hyperlipidemia: Qualifiers: Hyperlipidemia type: mixed hyperlipidemia Qualified Code(s): E78.2 - Mixed hyperlipidemia Code(s): E78.5 - Hyperlipidemia, unspecified Status: Acute Assessment and Plan: Continue home medications (3) ETOH abuse: Code(s): F10.10 - Alcohol abuse, uncomplicated Status: Acute Assessment and Plan: CIWA protocol no longer needed, 0 for awhile, will d/c Cont thiamine and folate Plan Elevated LFTs with steatosis noted on US, suspect LEW DVT prophylaxis with SCDs GI prophylaxis not indicated Code status full code Subjective Date/time seen: 05/02/23 15:16 Interval history: 05/02/2023 interval history: patient with suspected Guillain- [place] syndrome seen by neurologist, MRI of the spine is negative for any lesions, spinal fluids is did not show any pathology, today patient completed a course of IVIG, still complaints weakness and numbness in lower extremities. will continue PT/OT, patient will be seen by neurologist and further recommendation to follow. Review of Systems Review of Systems: 12 point review of systems was assessed and was negative except as noted in the HPI Exam Narrative: Patient is comfortable, NAD HEENT: eyes are clear and none icteric LUNGS: Normal respiratory effort ABD: Not distended Lower extremities: no edema SKIN: nonjaundiced Neuro: grossly intact. Objective Data Vital Signs Vital Signs: Vital Signs - 24 hr 05/01/23 16:00 05/01/23 20:00 05/01/23 20:00 Temperature Pulse Rate 81 81 100 Respiratory Rate 16 Blood Pressure Pulse Oximetry 98 Oxygen Delivery Room Air 05/01/23 20:57 05/01/23 21:50 05/01/23 23:37 Temperature 97.9 F 97.9 F Pulse Rate 90 90 90 Respiratory Rate 18 18 Blood Pressure 141/92 H 141/92 H Pulse Oximetry 100 100 100 Oxygen Delivery Room Air Room Air 05/02/23 00:00 05/02/23 00:00 05/02/23 05:25 Temperature 97.9 F 97.6 F Pulse Rate 89 90 68 Respiratory Rate 18 18 Blood Pressure 141/92 H 159/71 H Pulse Oximetry 100 100 Oxygen Delivery 05/02/23 04:00 05/02/23 08:00 05/02/23 08:50 Temperature Pulse Rate 71 71 Respiratory Rate Blood Pressure Pulse Oximetry Oxygen Delivery Room Air 05/02/23 12:00 05/02/23 14:26 Temperature 98.7 F Pulse Rate 97 97 Respiratory Rate 16 Blood Pressure 146/91 H Pulse Oximetry 99 Oxygen Delivery Intake/Output Intake/Output: Intake & Output 04/29/23 04/30/23 05/01/23 05/02/23 23:59 23:59 23:59 23:59 Intake Total 0 2070 2940 1610 Output Total 1999 2600 1050 Balance 80 -530 2940 560 Meds/Results Medications: Active Medications Generic Name Dose Route Start Last Admin Trade Name Freq PRN Reason Stop Dose Admin Acetaminophen 650 mg 04/28/23 19:30 05/01/23 19:24 Acetaminophen 325 Mg Tablet PO 05/02/23 19:31 650 mg Q24H SILVIO Administration Hydrocodone Bitart/Acetaminophen 1 tab 04/28/23 15:09 05/01/23 23:26 Hydrocodone/Acetaminophen (*Crx) 5-325 Mg Tablet PO 1 tab Q4H PRN Administration Moderate Pain (4-10) Al Hydroxide/Mg Trisilicate 1 tab 04/30/23 12:47 05/02/23 08:57 Aluminum/Magnesium Trisilicate Chew Tab PO 1 tab QID PRN Administration Indigestion Diphenhydramine HCl 25 mg 04/28/23 19:30 05/01/23 1
[2023-05-02] MEDS: HYDROcodone/acetaminophen (*CRX) 5-325 MG TABLET 1 TAB PO (18:49)
[2023-05-02] MEDS: ACETAMINOPHEN 325 MG TABLET 650 MG PO (20:44)
[2023-05-02] MEDS: diphenhydrAMINE HCl CAP 25 MG CAPSULE PO (20:44)
[2023-05-03] VITALS (10 sets, daily range): BP systolic 129–158; BP diastolic 68–96; PULSE 77–102; RESP 13–18; TEMP 35.5–37.1; O2SAT 96–100
[2023-05-03] MEDS: hydrOXYzine HCL 10 MG TABLET PO (01:03)
[2023-05-03] MEDS: HYDROcodone/acetaminophen (*CRX) 5-325 MG TABLET 1 TAB PO (03:42)
[2023-05-03] MEDS: SERTRALINE HCL 50 MG TABLET 100 MG PO (08:08)
[2023-05-03] MEDS: FOLIC ACID 1 MG TABLET PO (08:08)
[2023-05-03] MEDS: lisinopriL 20 MG TABLET 40 MG PO (08:08)
[2023-05-03] MEDS: THIAMINE HCL 100 MG TABLET PO (08:08)
[2023-05-03] MEDS: PANTOPRAZOLE 40 MG TABLET PO (08:10)
[2023-05-03] MEDS: MAGNESIUM OXIDE 400 MG TABLET PO ×2 (08:10→18:09)
--- NOTE | 2023-05-03 10:57 | WPDNEUROPN ---
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 Moss is a 48 year old female with a history of HTN, HLD presenting with ascending paraesthesias and weakness. Concern for Guillan [place] given constellation of symptoms. MRI of complete spine was negative for any cord lesion to suggest transverse myelitis. There was no enhancement of nerve roots either. CSF were completely normal -- could theoretically be early in disease process. S/P 5 doses of IVIG. - Will need inpatient rehab - Continue PT while admitted - Will start gabapentin 300mg TID for neuropathic pain - Follow-up in Neurology clinic after discharge Subjective Date/time seen: 05/03/23 10:57 Interval history: Jennifer Moss is a 48 year old female with a history of HTN, HLD presenting due to lower extremity weakness and numbness. Patient first started experiencing numbness and tingling in her feet about a week ago. Since then the paraesthesias and numbness have extended up to her chest area. She has also been having lower extremity weakness and has fallen twice prior to admission. She has mild sensory loss in her upper extremities but no significant weakness. She denies any preceding viral illness. She denies any bladder or bowel incontinence. She denies any dysphagia, dysarthria, double vision. 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 When she was evaluated in the ED her exam was significant for sensory loss in the lower extremities but intact strength. CT head and CTA brain/carotid were unrevealing. IgA level from 2021 was 568. Since admission her blood pressure has ranged from 130-170s. Her HR has been up to the 100s. She denies any breathing difficulties. MRI cervical, thoracic, and lumbar spine with and without contrast were negative for any change signal change involving the spinal cord. CSF studies completely normal. Completed IVIG x 5 doses. Patient feels that she is doing worse today. Evaluated by PT. She reports burning pain and tingling in her lower extremities which is keeping her from sleeping at night. Review of Systems Constitutional: Constitutional: Denies chills, Denies fever(s) and Denies weight loss Eyes: Eyes: Denies diplopia and Denies loss of vision ENT: Denies dizziness, Denies hearing loss and Denies tinnitus Cardiovascular: Cardiovascular: Denies chest pain, Denies syncope and Denies dyspnea Respiratory: Respiratory: Denies cough, Denies dyspnea and Denies wheezing Gastrointestinal: Gastrointestinal: Denies abdominal pain, Reports bloating, Denies change in bowel habits, Reports constipation and Denies vomiting Genitourinary: Genitourinary: Denies urinary incontinence Musculoskeletal: Musculoskeletal: Reports arthralgias and Denies joint swelling Integumentary/Breasts: Skin/Breast: Denies new lesions and Denies rash Neurologic: Reports as per HPI, Denies dizziness, Denies syncope and Denies loss of vision Psychiatric: Psychiatric: Reports anxiety and Denies depression Endocrine: Endocrine: Denies cold intolerance and Denies heat intolerance Hematologic/Lymphatic: Hematologic/Lymphatic: Denies easy bleeding and Denies easy bruising Allergic/Immunologic: Allergic/Immunologic: Denies no additional allergic/immunologic complaints and Denies wheezing Exam Const: General: comfortable and no acute distress HENMT: Mouth: Yes moist mucous membranes Eyes: Pupils: Equal, round and reactive pupils present Other: L eye esotropia (chronic) Resp: Effort & Inspection: normal respiratory effort Auscultation: clear t
--- NOTE | 2023-05-03 11:48 | PC.NURSE ---
Patient was working with physical therapy. Her legs gave out and she was caught by the PT worker with the gait belt. Pt now in bed at this time. Pt stated she is not in pain and visually this nurse saw that pt made no contact with the floor.
--- NOTE | 2023-05-03 12:17 | PCPTNOTE ---
On 05/03/23, the student, CATE Monteiro, provided care and completed [facility] documentation on this patient. I have reviewed the student's documentation and agree with the findings.
[2023-05-03] MEDS: GABAPENTIN 300 MG CAPSULE PO ×2 (13:39→18:09)
--- NOTE | 2023-05-03 16:06 | WPDPN ---
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 was seen by her neurologist and started patient on Gabapentin, will continue PT/OT, patient will be seen by neurologist and further recommendation to follow. (2) Hyperlipidemia: Qualifiers: Hyperlipidemia type: mixed hyperlipidemia Qualified Code(s): E78.2 - Mixed hyperlipidemia Code(s): E78.5 - Hyperlipidemia, unspecified Status: Acute Assessment and Plan: Continue home medications (3) ETOH abuse: Code(s): F10.10 - Alcohol abuse, uncomplicated Status: Acute Assessment and Plan: CIWA protocol no longer needed, 0 for awhile, will d/c Cont thiamine and folate Plan Elevated LFTs with steatosis noted on US, suspect LEW DVT prophylaxis with SCDs GI prophylaxis not indicated Code status full code Subjective Date/time seen: 05/03/23 16:06 Interval history: Cont IV Ig, appreciate neuro consult unchanged PT/OT 05/03/2023 interval history: patient with suspected Guillain- [place] syndrome seen by neurologist, MRI of the spine is negative for any lesions, spinal fluids is did not show any pathology, on 05/02 patient completed a course of IVIG, still complaints weakness and numbness in lower extremities. was seen by her neurologist and started patient on Gabapentin, will continue PT/OT, patient will be seen by neurologist and further recommendation to follow. Review of Systems Review of Systems: 12 point review of systems was assessed and was negative except as noted in the HPI Exam Narrative: Patient is comfortable, NAD HEENT: eyes are clear and none icteric LUNGS: Normal respiratory effort ABD: Not distended Lower extremities: no edema SKIN: nonjaundiced Neuro: grossly intact. Objective Data Vital Signs Vital Signs: Vital Signs - 24 hr 05/02/23 20:00 05/02/23 20:00 05/02/23 22:00 Temperature 97.4 F L Pulse Rate 97 97 96 Respiratory Rate 16 20 Blood Pressure 159/87 H Pulse Oximetry 99 98 Oxygen Delivery Room Air 05/03/23 00:00 05/03/23 04:00 05/03/23 05:35 Temperature 98.7 F Pulse Rate 95 78 77 Respiratory Rate 16 Blood Pressure 158/96 H Pulse Oximetry 96 Oxygen Delivery 05/03/23 08:00 05/03/23 11:56 05/03/23 12:00 Temperature Pulse Rate 83 88 Respiratory Rate Blood Pressure Pulse Oximetry 98 Oxygen Delivery Room Air 05/03/23 15:12 Temperature 96 F L Pulse Rate 87 Respiratory Rate 18 Blood Pressure 142/82 H Pulse Oximetry 100 Oxygen Delivery Intake/Output Intake/Output: Intake & Output 04/30/23 05/01/23 05/02/23 05/03/23 23:59 23:59 23:59 23:59 Intake Total 2070 2940 2330 590 Output Total 2600 1050 Balance -530 2940 1280 590 Meds/Results Medications: Active Medications Generic Name Dose Route Start Last Admin Trade Name Freq PRN Reason Stop Dose Admin Hydrocodone Bitart/Acetaminophen 1 tab 04/28/23 15:09 05/03/23 03:42 Hydrocodone/Acetaminophen (*Crx) 5-325 Mg Tablet PO 1 tab Q4H PRN Administration Moderate Pain (4-10) Al Hydroxide/Mg Trisilicate 1 tab 04/30/23 12:47 05/02/23 18:47 Aluminum/Magnesium Trisilicate Chew Tab PO 1 tab QID PRN Administration Indigestion Enoxaparin Sodium 40 mg 04/29/23 09:00 Enoxaparin 40 Mg/0.4 Ml Syringe SUB-Q DAILY SILVIO Folic Acid 1 mg 04/29/23 09:00 05/03/23 08:08 Folic Acid 1 Mg Tablet PO 1 mg DAILY SILVIO Administration Gabapentin 300 mg 05/03/23 17:00
[2023-05-04] VITALS (10 sets, daily range): BP systolic 125–163; BP diastolic 77–93; PULSE 75–104; RESP 12–16; TEMP 35.8–36.1; O2SAT 97–100
[2023-05-04] MEDS: GABAPENTIN 300 MG CAPSULE PO ×2 (08:20→12:08)
[2023-05-04] MEDS: MAGNESIUM OXIDE 400 MG TABLET PO ×2 (08:20→16:20)
[2023-05-04] MEDS: PANTOPRAZOLE 40 MG TABLET PO (08:20)
[2023-05-04] MEDS: FOLIC ACID 1 MG TABLET PO (08:21)
[2023-05-04] MEDS: lisinopriL 20 MG TABLET 40 MG PO (08:21)
[2023-05-04] MEDS: SERTRALINE HCL 50 MG TABLET 100 MG PO (08:21)
[2023-05-04] MEDS: THIAMINE HCL 100 MG TABLET PO (08:21)
--- NOTE | 2023-05-04 10:24 | PCRCNOTE ---
Patient's NIF was -100 cmH2O.
--- NOTE | 2023-05-04 12:52 | WPDPN ---
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 was seen by her neurologist and started patient on Gabapentin, also on 05/03 during PT patient fell states are weak, will continue PT/OT, patient will benefit going to rehab, patient will be seen by neurologist and further recommendation to follow. (2) Hyperlipidemia: Qualifiers: Hyperlipidemia type: mixed hyperlipidemia Qualified Code(s): E78.2 - Mixed hyperlipidemia Code(s): E78.5 - Hyperlipidemia, unspecified Status: Acute Assessment and Plan: Continue home medications (3) ETOH abuse: Code(s): F10.10 - Alcohol abuse, uncomplicated Status: Acute Assessment and Plan: CIWA protocol no longer needed, 0 for awhile, will d/c Cont thiamine and folate Plan Elevated LFTs with steatosis noted on US, suspect LEW DVT prophylaxis with SCDs GI prophylaxis not indicated Code status full code Subjective Date/time seen: 05/04/23 12:52 Interval history: Cont IV Ig, appreciate neuro consult unchanged PT/OT 05/04/2023 interval history: patient with suspected Guillain- [place] syndrome seen by neurologist, MRI of the spine is negative for any lesions, spinal fluids is did not show any pathology, on 05/02 patient completed a course of IVIG, still complaints weakness and numbness in lower extremities. was seen by her neurologist and started patient on Gabapentin, also on 05/03 during PT patient fell states are weak, will continue PT/OT, patient will benefit going to rehab, patient will be seen by neurologist and further recommendation to follow. Review of Systems Review of Systems: 12 point review of systems was assessed and was negative except as noted in the HPI Exam Narrative: Patient is comfortable, NAD HEENT: eyes are clear and none icteric LUNGS: Normal respiratory effort ABD: Not distended Lower extremities: no edema SKIN: nonjaundiced Neuro: grossly intact. Objective Data Vital Signs Vital Signs: Vital Signs - 24 hr 05/03/23 15:12 05/03/23 16:00 05/03/23 20:00 Temperature 96 F L Pulse Rate 87 87 101 H Respiratory Rate 18 Blood Pressure 142/82 H Pulse Oximetry 100 05/03/23 23:37 05/04/23 00:00 05/04/23 04:00 Temperature 97.6 F Pulse Rate 102 H 82 75 Respiratory Rate 13 Blood Pressure 129/68 Pulse Oximetry 98 05/04/23 06:01 05/04/23 08:00 05/04/23 12:00 Temperature 96.9 F L Pulse Rate 75 98 92 Respiratory Rate 12 Blood Pressure 131/77 Pulse Oximetry 100 Intake/Output Intake/Output: Intake & Output 05/01/23 05/02/23 05/03/23 05/04/23 23:59 23:59 23:59 23:59 Intake Total 2940 2330 1070 740 Output Total 1050 500 Balance 2940 1280 1070 240 Meds/Results Medications: Active Medications Generic Name Dose Route Start Last Admin Trade Name Freq PRN Reason Stop Dose Admin Hydrocodone Bitart/Acetaminophen 1 tab 04/28/23 15:09 05/03/23 03:42 Hydrocodone/Acetaminophen (*Crx) 5-325 Mg Tablet PO 1 tab Q4H PRN Administration Moderate Pain (4-10) Al Hydroxide/Mg Trisilicate 1 tab 04/30/23 12:47 05/02/23 18:47 Aluminum/Magnesium Trisilicate Chew Tab PO 1 tab QID PRN Administration Indigestion Enoxaparin Sodium 40 mg 04/29/23 09:00 Enoxaparin 40 Mg/0.4 Ml Syringe SUB-Q DAILY SILVIO Folic Acid 1 mg 04/29/23 09:00 05/04/23 08:21 Folic Acid 1 Mg Tablet PO 1 mg DAILY SILVIO Administration Gabapentin 300 mg 05/03/23 17:00 05/04/23 12:08
[2023-05-04] MEDS: GABAPENTIN 300 MG CAPSULE 600 MG PO (16:19)
[2023-05-04] MEDS: HYDROcodone/acetaminophen (*CRX) 5-325 MG TABLET 1 TAB PO (23:57)
[2023-05-05] VITALS (7 sets, daily range): BP systolic 106–132; BP diastolic 72–79; PULSE 70–94; RESP 12–16; TEMP 35.8–35.9; O2SAT 95–98
--- NOTE | 2023-05-05 07:25 | PCPTNOTE ---
The patient treatment was not able to be completed on 05/04/2023. Will plan to continue treatment per plan of care.
[2023-05-05] MEDS: HYDROcodone/acetaminophen (*CRX) 5-325 MG TABLET 1 TAB PO (08:26)
[2023-05-05] MEDS: lisinopriL 20 MG TABLET 40 MG PO (08:27)
[2023-05-05] MEDS: MAGNESIUM OXIDE 400 MG TABLET PO (08:27)
--- NOTE | 2023-05-05 08:27 | PCRCNOTE ---
NIF COMPLETED PT
[2023-05-05] MEDS: SERTRALINE HCL 50 MG TABLET 100 MG PO (08:28)
[2023-05-05] MEDS: THIAMINE HCL 100 MG TABLET PO (08:28)
[2023-05-05] MEDS: PANTOPRAZOLE 40 MG TABLET PO (08:28)
[2023-05-05] MEDS: FOLIC ACID 1 MG TABLET PO (08:28)
--- NOTE | 2023-05-05 08:28 | PCRCNOTE ---
NIF COMPLETED: -100 CmH20
[2023-05-05] MEDS: GABAPENTIN 300 MG CAPSULE 600 MG PO ×2 (08:36→12:34)
--- NOTE | 2023-05-05 11:29 | WPDPN ---
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 was seen by her neurologist and started patient on Gabapentin, also on 05/03 during PT patient fell states she was weak, had to be helped getting up, will continue PT/OT, patient will benefit going to rehab, patient will be seen by neurologist and further recommendation to follow. (2) Hyperlipidemia: Qualifiers: Hyperlipidemia type: mixed hyperlipidemia Qualified Code(s): E78.2 - Mixed hyperlipidemia Code(s): E78.5 - Hyperlipidemia, unspecified Status: Acute Assessment and Plan: Continue home medications (3) ETOH abuse: Code(s): F10.10 - Alcohol abuse, uncomplicated Status: Acute Assessment and Plan: CIWA protocol no longer needed, 0 for awhile, will d/c Cont thiamine and folate Plan Elevated LFTs with steatosis noted on US, suspect LEW DVT prophylaxis with SCDs GI prophylaxis not indicated Code status full code Subjective Date/time seen: 05/05/23 11:29 Interval history: Cont IV Ig, appreciate neuro consult unchanged PT/OT 05/05/2023 interval history: patient with suspected Guillain- [place] syndrome seen by neurologist, MRI of the spine is negative for any lesions, spinal fluids is did not show any pathology, on 05/02 patient completed a course of IVIG, still complaints weakness and numbness in lower extremities. was seen by her neurologist and started patient on Gabapentin, also on 05/03 during PT patient fell states she was weak, had to be helped getting up, will continue PT/OT, patient will benefit going to rehab, patient will be seen by neurologist and further recommendation to follow. Review of Systems Review of Systems: 12 point review of systems was assessed and was negative except as noted in the HPI Exam Narrative: Patient is comfortable, NAD HEENT: eyes are clear and none icteric LUNGS: Normal respiratory effort ABD: Not distended Lower extremities: no edema SKIN: nonjaundiced Neuro: grossly intact. Objective Data Vital Signs Vital Signs: Vital Signs - 24 hr 05/04/23 12:00 05/04/23 14:12 05/04/23 16:00 Temperature 96.5 F L Pulse Rate 92 104 H 93 Respiratory Rate 16 Blood Pressure 125/84 Pulse Oximetry 97 Oxygen Delivery 05/04/23 21:30 05/04/23 20:00 05/04/23 20:00 Temperature 96.8 F L Pulse Rate 91 92 91 Respiratory Rate 14 14 Blood Pressure 163/93 H Pulse Oximetry 97 97 Oxygen Delivery Room Air 05/05/23 00:00 05/04/23 21:25 05/04/23 21:25 Temperature Pulse Rate 90 Respiratory Rate Blood Pressure Pulse Oximetry 97 97 Oxygen Delivery Room Air 05/05/23 04:00 05/05/23 06:36 05/05/23 08:26 Temperature 96.4 F L Pulse Rate 80 70 Respiratory Rate 16 Blood Pressure 106/72 Pulse Oximetry 95 98 Oxygen Delivery Room Air Intake/Output Intake/Output: Intake & Output 05/02/23 05/03/23 05/04/23 05/05/23 23:59 23:59 23:59 23:59 Intake Total 2330 1070 1460 120 Output Total 1050 500 Balance 1280 1070 960 120 Meds/Results Medications: Active Medications Generic Name Dose Route Start Last Admin Trade Name Freq PRN Reason Stop Dose Admin Hydrocodone Bitart/Acetaminophen 1 tab 04/28/23 15:09 05/05/23 08:26 Hydrocodone/Acetaminophen (*Crx) 5-325 Mg Tablet PO 1 tab Q4H PRN Administration Moderate Pain (4-10) Al Hydroxide/Mg Trisilicate 1 tab 04/30/23 12:47 05/02/23 18:47 Aluminum/Magnesium Trisilicate Chew Tab PO 1 t
--- NOTE | 2023-05-05 14:53 | PM.DS ---
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 was seen by her neurologist and started patient on Gabapentin, also on 05/03 during PT patient fell states she was weak, had to be helped getting up, will continue PT/OT, patient will benefit going to rehab, patient will be seen by neurologist and further recommendation to follow. (2) Hyperlipidemia: Qualifiers: Hyperlipidemia type: mixed hyperlipidemia Qualified Code(s): E78.2 - Mixed hyperlipidemia Code(s): E78.5 - Hyperlipidemia, unspecified Status: Acute Assessment and Plan: Continue home medications (3) ETOH abuse: Code(s): F10.10 - Alcohol abuse, uncomplicated Status: Acute Assessment and Plan: CIWA protocol no longer needed, 0 for awhile, will d/c Cont thiamine and folate Plan Elevated LFTs with steatosis noted on US, suspect LEW DVT prophylaxis with SCDs GI prophylaxis not indicated Code status full code DS: Summary Hospital Course Reason for hospitalization: Lower extremity weakness and numbness and tingling Narrative: Patient is a 48-year-old female with a past medical history of a retention, anxiety, depression who presented to the ED with complaints of bilateral lower extremity weakness along with numbness and tingling that has radiated up to her abdomen. patient stated this all started last when she came in and they told her that it was our electrolytes were not balanced.? They gave her Mag and potassium and sent her home however she has had more issues.? She stated that the numbness and tingling is now in her chest and that she has fallen multiple times related to not being able to feel her feet.? She stated that she feels like she is at the dentist and they numb her whole body.? She also stated that she was having some chest tightness and heaviness as her chest just feels numb.? She denies any kind and basal droop, weakness, recent illnesses, or unilateral weakness.? She also denies any nausea, vomiting, constipation, sweats, fevers, chills or abdominal pain.? She did state that she has been having a little diarrhea however nothing too bad.? She also stated that she has been lightheaded and dizzy weak fatigued.? As she was concerned about her alcohol use may be being the reason this is happening however explained her this is not related.? She did state that she drinks half to a pt a day and she has been working with her primary care provider to rectify this situation.? Spoke with patient explained to her how the disease process works when it comes to Guillain-[place] as this is where neurology is leaning towards.? Patient did verbalize understanding and did elect to her friend Heike tian to be her surrogate in the event that she could get intubated.? Patient did verbalize understanding all questions were answered at that time.? Will transfer patient down to IMU for further care related to closer need for respiratory status. Hospital Course: ?patient with suspected Guillain- [place] syndrome seen by neurologist, MRI of the spine is negative for any lesions, spinal fluids is did not show any pathology, on 05/02 patient completed a course of IVIG, still complaints weakness and numbness in lower extremities.? was seen by her neurologist and started patient on Gabapentin, also on 05/03 during PT patient fell states she was weak, had to be h
== END 2023-05-05 16:15 | DRG 96 ==
LOC: ANHED 10:48 → ANH3MEDSUR 11:48 → ANHIMU 17:58 → ANHICU 19:32 → ANH3MEDSUR 05-01 00:56
PROVIDERS: Internal Medicine; Nurse Practitioner; Student in an Organized Health Care Education/Training Program; Admitting Provider Family Medicine; Emergency Provider Emergency Medicine; PCP Internal Medicine; Visit Provider Family Medicine
DX: G61.0 Guillain-Barre syndrome (principal); I10 Essential (primary) hypertension; J45.909 Unspecified asthma, uncomplicated; E78.5 Hyperlipidemia, unspecified; K76.0 Fatty (change of) liver, not elsewhere classified; R29.6 Repeated falls; R20.2 Paresthesia of skin; F41.9 Anxiety disorder, unspecified; F32.A Depression, unspecified; F10.10 Alcohol abuse, uncomplicated; Z98.84 Bariatric surgery status; Z87.891 Personal history of nicotine dependence
CPT/HCPCS: 36415; 62328; 70496; 70498; 72156; 72157; 72158; 76705; 80053; 80061; 80074; 82784; 82945; 82948; 83735; 84100; 84157; 84443; 84484; 85025; 85610; 85730; 86140; 87070; 87205; 89051; 93005; 96365; 96366; 96375; 97110; 97116; 97161; 97165; 99285; A9270; A9577; G0378; J1459; J3475; Q9967

== ENCOUNTER 2023-06-02 08:53 | Outpatient (CLI) | payer OTHER, SELFPAY ==
--- NOTE | 2023-06-02 11:00 | NEURO_ITS ---
Impression: # Complains of numbness of lower extremities; History of GBS. # Normal motor and sensory Nerve Conduction Study # Normal needle/EMG. # Clinical correlation recommended. Nerve Conduction Studies Anti Sensory Summary Table Stim Site NR Peak (ms) P-T Amp (?V) Site1 Site2 Delta-P (ms) Dist (cm) Isac (m/s) Left Sup Fibular Anti Sensory (Ant Lat Mall) 14 cm 3.5 7.1 14 cm Ant Lat Mall 3.5 16.0 46 Right Sup Fibular Anti Sensory (Ant Lat Mall) 14 cm 3.4 5.6 14 cm Ant Lat Mall 3.4 16.0 47 Left Sural Anti Sensory (Lat Mall) Calf 3.5 13.3 Calf Lat Mall 3.5 16.0 46 Right Sural Anti Sensory (Lat Mall) Calf 3.9 15.3 Calf Lat Mall 3.9 18.0 46 Motor Summary Table Stim Site NR Onset (ms) O-P Amp (mV) Site1 Site2 Delta-0 (ms) Dist (cm) Isac (m/s) Left Peroneal Motor (Vastus Med) Ankle 3.4 1.5 Popit Ankle 7.1 37.0 52 Popit 10.5 1.3 Right Peroneal Motor (Vastus Med) Ankle 3.0 2.3 Popit Ankle 7.6 35.0 46 Popit 10.6 1.8 Left Tibial Motor (Abd Arana Brev) Ankle 3.7 4.8 Knee Ankle 7.3 36.0 49 Knee 11.0 3.7 Right Tibial Motor (Abd Arana Brev) Ankle 3.8 4.4 Knee Ankle 7.3 36.0 49 Knee 11.1 4.0 F Wave Studies NR F-Lat (ms) L-R F-Lat (ms) Left Peroneal (Mrkrs) (EDB) 45.73 0.00 Right Peroneal (Mrkrs) (EDB) 45.73 0.00 Left Tibial (Mrkrs) (Abd Hallucis) 45.94 0.47 Right Tibial (Mrkrs) (Abd Hallucis) 45.47 0.47 EMG Side Muscle Nerve Root Ins Act Fibs Amp Dur Recrt Comment Right AntTibialis Dp Br Fibular L4-5 Nml Nml Nml Nml Nml Right Gastroc Tibial S1-2 Nml Nml Nml Nml Nml Right Fibularis Long Sup Br Fibular L5-S1 Nml Nml Nml Nml Nml Right Flex Dig Long Tibial L5-S2 Nml Nml Nml Nml Nml Right Ext Dig Brev Dp Br Fibular L5, S1 Nml Nml Nml Nml Nml Left AntTibialis Dp Br Fibular L4-5 Nml Nml Nml Nml Nml Left Gastroc Tibial S1-2 Nml Nml Nml Nml Nml Left Fibularis Long Sup Br Fibular L5-S1 Nml Nml Nml Nml Nml Left Flex Dig Long Tibial L5-S2 Nml Nml Nml Nml Nml Left Ext Dig Brev Dp Br Fibular L5, S1 Nml Nml Nml Nml Nml Right QuadratusFem QuadFemoris L4-5, S1 Nml Nml Nml Nml Nml Left QuadratusFem QuadFemoris L4-5, S1 Nml Nml Nml Nml Nml MTDD
== END 2023-06-02 08:54 | disposition home or self-care (01) ==
LOC: ANHNEURO 08:55
PROVIDERS: PCP Internal Medicine; Visit Provider Nurse Practitioner
DX: R20.0 Anesthesia of skin (principal); R20.2 Paresthesia of skin
CPT/HCPCS: 95886; 95910

== ENCOUNTER 2023-07-12 11:00 | Outpatient (RCR) | payer OTHER, SELFPAY ==
--- NOTE | 2023-06-10 15:06 | OPREHPOC ---
Outpatient Therapy Plan of Care This is a Multidisciplinary Plan of Care that may contain components documented by all disciplines (PT, OT, and ST.) PT Problem 1 PT Problem #1 Knowledge Deficit PT Goal 1 Goal Pt to be IND with issued HEP Target Visit 16 PT Problem 2 PT Problem #2 Impaired Strength PT Goal 1 Goal Pt to improve BLE strength to grossly 4+/5 Target Visit 16 PT Goal 2 Goal Pt to improve 5xSTS from 48s to 20s Target Visit 16 PT Problem 3 PT Problem #3 Impaired Strength PT Goal 1 Goal Pt to be able to complete a sit to stand without UE support Target Visit 16 PT Goal 2 Goal Pt to demonstrate a functional 10lb box lift without deviations Target Visit 16 PT Problem 4 PT Problem #4 Impaired Functional Mobil PT Goal 1 Goal Pt to improve 2 min walk distance from 245ft to 400ft. Target Visit 16 PT Goal 2 Goal Pt to improve Chung balance score from 27/56 to 40/ 56. Target Visit 16 PT Problem 5 PT Problem #5 Impaired Sensation PT Goal 1 Goal Pt to report 75% improvement in overall sensation. Target Visit 16
--- NOTE | 2023-06-10 15:12 | PTOPEVAL1 ---
Assessment and note entered by Angela Magallon, PT, DPT Evaluation Information Assessment Status Evaluation Diagnosis Guillain-[place] Onset 6 weeks Subjective Information Pt states towards the end of April she started to get BLE weakness. She was then diagnosed with Guillain-[place]. She was in the hospital for 3 weeks and was discharged on 05/20/23. She complete 1-2 visits of PT and decided outpatient would be a better fit for her. She currently ambulates with a walker and does not normally use a device. She feels like her R side is more affected, LE greater than UEs. She states she intermittently gets pins and needles in her UEs. She states from her chest down she has numbness. She feels like she looses her train of thought often. Pt declines pain, but reports altered sensations a majority of the time. 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 Reported Pain Level Pain Score 0: Self Report Assessment PT Clinical Summary Jennifer presents to therapy today for her initial evaluation following a medical diagnosis of Guillain- [place]. Today she demonstrates decreased functional strength, balance, and mobility d/t the residual affects. She currently ambulates with a walker at a decreased gait speed from expected compared to age matched norms. Her NAVA, TUG, Tinetti, and 5xSTS scores all place her at an increased risk for falls. Skilled physical therapy services are indicated to address the deficits noted above, to improve balance, to ambulate without walker, and to return to PLOF. Plan of Care Interventions Electrical Stimulation,Gait Training,Manual Therapy,Neuro Re-education,Patient/Caregiver Educati,Therapeutic Activities,Therapeutic Exercise PT Services Indicated Yes Treatment Frequency and 2x/wk for 16 visits Duration These treatments will address the objective and functional deficits as defined above. The patient will be advanced safely and appropriately in order for the patient to progress towards his/her prior level of function. Additional exercises will be introduced and as well as a comprehensive home exercise program upon discharge, if needed, ?to ensure carryover of functional gains achieved in the clinic. This treatment plan has been reviewed and agreement upon by the patient.
--- NOTE | 2023-06-15 08:51 | PCPTNOTE ---
Patient called & cancelled scheduled appointment this date due to not having a ride to therapy.
--- NOTE | 2023-06-16 10:55 | PCPTNOTE ---
Patient no show and no call this date. Left a voicemail at this time.
--- NOTE | 2023-06-21 09:35 | PCPTNOTE ---
Patient did not show up for scheduled appointment this date. Called and left voicemail.
--- NOTE | 2023-06-23 09:10 | PCPTNOTE ---
Pt cancelled today stating she did not have a ride.
--- NOTE | 2023-06-29 10:39 | PCPTNOTE ---
Patient canceled due to not having a ride to appointment.
--- NOTE | 2023-07-08 13:13 | PTOPPROGNS ---
Assessment and note entered by Angela Magallon, PT, DPT Evaluation Information Assessment Status Progress Diagnosis Guillain-[place] Onset 6 weeks Subjective Information Pt states she can get around her home fine, she states it feels like her knees are going to give out on her. She states she still cannot sleep very well. She states her calves are no longer tinging it is now mostly in the tops of her thighs. She states she feels like progress is very slow. Pt reports doing her exercises daily. She reports she does not go anywhere without her walker, she tried to walk on Wednesday without her walker and had a fall. Assessment PT Clinical Summary Jennifer presents to therapy today for her progress report follow 4 visits of skilled therapy to treat her medical diagnosis of Guillain- [place]. Her compliance with therapy has been inconsistent d/t transportation issues. Today she demonstrates minor improvements in her knee strength, continues to have weak hips, still remains at an increased risk for falls per walking speed and standardized testing. Continuation of skilled physical therapy services are indicated to address the deficits noted above, to improve balance, to ambulate without walker, and to return to OF. Plan of Care Interventions Electrical Stimulation,Gait Training,Manual Therapy,Neuro Re-education,Patient/Caregiver Educati,Therapeutic Activities,Therapeutic Exercise PT Services Indicated Yes Treatment Frequency and 2x/wk for 16 visits Duration These treatments will address the objective and functional deficits as defined above. The patient will be advanced safely and appropriately in order for the patient to progress towards his/her prior level of function. Additional exercises will be introduced and as well as a comprehensive home exercise program upon discharge, if needed, ?to ensure carryover of functional gains achieved in the clinic. This treatment plan has been reviewed and agreement upon by the patient.
--- NOTE | 2023-07-14 14:53 | PCPTNOTE ---
Pt cancelled due to no ride.
--- NOTE | 2023-07-16 11:05 | PCPTNOTE ---
Patient called to cancel due to having stomach issues.
--- NOTE | 2023-07-19 09:19 | PCPTNOTE ---
Addendum entered by Valencia Sosa, HYDRAULIC PILE HAMMER OPERATOR 07/19/23 10:36: Pt cancelled due to illness today. Original Note: Pt cancelled due to no ride.
--- NOTE | 2023-07-21 11:06 | PCPTNOTE ---
cancelled due to illness
--- NOTE | 2023-07-23 11:30 | PCPTNOTE ---
Pt cancelled due to not feeling up to it .
--- NOTE | 2023-07-26 08:17 | PTOPDC ---
Assessment and note entered by Angela Magallon, PT, DPT Evaluation Information Assessment Status Discharge - Pt Not Present Diagnosis Guillian-[place] Onset 6 weeks Subjective Information Called and spoke with patient to notify her of discharge per the attendance policy. Assessment PT Clinical Summary Pt has attended 6 visits of therapy from 06/10/23 to 07/26/23. In that time she has cancelled, rescheduled, or not shown up to 11 appointments. Per our attendance policy, she will be discharged at this time.
== END 2023-07-26 10:53 | disposition home or self-care (01) ==
LOC: ANHGOSHPT 11:00
PROVIDERS: PCP Internal Medicine; Visit Provider Internal Medicine
DX: G61.0 Guillain-Barre syndrome (principal)
CPT/HCPCS: 97110; 97112; 97162; 97530; 99199

== ENCOUNTER 2023-11-11 11:52 | Emergency (ER) | payer OTHER, SELFPAY ==
[2023-11-11] VITALS (55 sets, daily range): BP systolic 128–157; BP diastolic 65–89; PULSE 90–121; RESP 11–24; TEMP 36.8; O2SAT 90–100
--- NOTE | ~2023-11-11 | CT_ITS ---
EXAMINATION: CT abdomen pelvis w con DATE: 11/11/2023 14:08 INDICATION: Weakness. Diarrhea. TECHNIQUE: Computed tomography (CT) of the abdomen and pelvis was performed with 100 mL Omnipaque 350 intravenous contrast. Automated exposure control and iterative reconstruction technique were employe d. The dose-length product was 606.32 mGy-cm. COMPARISON: CT abdomen and pelvis 01/22/2023 FINDINGS: The visualized portions of the lung bases demonstrate mild atelectasis. Again seen is a 5 m m nodule in left lower lobe, likely benign. No pleural effusion. The heart size is normal. No pericar dial effusion. There is diffuse hepatic steatosis. The gallbladder, spleen, pancreas, adrenal glands, and kidneys are normal. There is diverticulosis of the colon without evidence of diverticulitis. The re are changes of appendectomy. There is calcified atherosclerosis of the aorta and many of the other arteries. There are changes of gastric sleeve procedure. The left periuterine and left ovarian veins are enlarged, consistent with pelvic venous insufficiency. There is a nabothian cyst in the cervix. There is mild thoracic and lumbar spondylosis. IMPRESSION: 1. Diffuse hepatic steatosis. 2. Pelvic venous insufficiency. Reviewed, dictated and finalized at location A. FILLER
--- NOTE | ~2023-11-11 | XR_ITS ---
XR lumbar puncture diagnostic DATE: 11/12/2023 07:48 INDICATION: Knee replacement surgery one year ago TECHNIQUE: 3 views COMPARISON: 04/07/2023 right knee FINDINGS: Status post right total knee arthroplasty. There is a small suprapatellar knee joint effus ion. No fracture or dislocation, periosteal reaction or bone destruction. IMPRESSION: Small knee joint effusion Status post right total knee arthroplasty Reviewed, dictated and finalized at Location A. Reviewed, dictated and finalized at location B. VISION ANCHOR
--- NOTE | ~2023-11-11 | XR_ITS ---
EXAMINATION: XR lumbar puncture diagnostic DATE: 11/12/2023 09:59 INDICATION: Weakness. Guillain-[place] flareup. TECHNIQUE: The procedure including the risks and benefits was discussed with the patient. Risks discu ssed included spinal headache, cerebrospinal fluid leak, bleeding, and infection. The patient underst ood the risks and agreed to proceed. A timeout was performed to verify the patient's name, date of , and procedure to be performed. The skin overlying the L3-L4 level was prepped and draped in usual sterile fashion. Subcutaneous 1% lidocaine was used for local anesthesia. A 5 inch 22 gauge s alla needle was advanced under fluoroscopic guidance. The needle was removed and the entry site was cleaned and dressed. There were no immediate complications. A total of 1 fluoroscopic image(s) and o ne crosstable lateral radiograph were obtained. The amount of fluoroscopy time used during this proce dure was 0.1 minutes. There were no immediate complications. Total DAP was 9.33 Gycm^2. FINDINGS: Real-time fluoroscopy demonstrates the needle at the L3-L4 level. Opening pressure was 15 c m water. (Normal range is variably defined as 6-20 cm water and up to 25 cm water in obese patients. Pressure >25 cm water is one of the modified Dandy criteria for idiopathic intracranial hypertension) . 15 mL of clear, colorless fluid was collected in 4 tubes. IMPRESSION: 1. Successful fluoro-guided lumbar puncture with normal opening pressure of 15 cm water. Reviewed, dictated and finalized at location A. NURSE
--- NOTE | ~2023-11-11 | XR_ITS ---
XR chest 2V DATE: 11/11/2023 13:15 INDICATION: Weakness. [place] flareup TECHNIQUE: AP and lateral views COMPARISON: 04/16/2023 portable AP chest FINDINGS: Normal heart size. No hilar or mediastinal enlargement. No pulmonary infiltrate or consolid ation, pleural effusion or pulmonary vascular congestion or pneumothorax. Mild elevation of the right diaphragm. Included skeletal structures are unremarkable other than mild scoliosis. IMPRESSION: No active cardiopulmonary disease Reviewed, dictated and finalized at location L. GENIZER OPERATOR
--- NOTE | 2023-11-11 12:47 | ECG_ITS ---
Measurements Intervals [place] Rate: 95 P: 70 NV: 127 QRS: 0 QRSD: 85 T: 6 QT: 361 QTc: 455 Interpretive Statements SINUS RHYTHM POSSIBLE LEFT ATRIAL ENLARGEMENT CONSIDER INFERIOR INFARCT, AGE INDETERMINATE BORDERLINE ST-T WAVE ABNORMALITY- ANTEROLAT/HIGH LAT LEADS BASELINE ARTIFACT- I, III, AVR, AVL, AVF, V4-V6 BORDERLINE ECG COMPARED TO ECG 04/28/2023 08:50:48 NO SIGNIFICANT CHANGES Electronically Signed On 11-11-2023 12:54:51 CONSTRUCTION SALES MANAGER by Denis Sánchez D.O.
[2023-11-11 13:04] LABS: Basophils Absolute Auto 0.1 K/mm3 (0.0-0.1); Basophils Percent Auto 1.5 % (0.2-1.2); Eosinophils Percent Auto 0.3 % (0-4.4); Hematocrit 35.5 % (37.0-47.0); Hemoglobin 11.8 g/dL (12.0-15.0); Immature Granulocyte Absolute 0.04 K/mm3 (0.00-0.031); Immature Granulocyte Percent A 0.5 % (0-0.5); Lymphocytes Absolute Auto 1.47 K/mm3 (0.9-3.2); Lymphocytes Percent Auto 16.6 % (18.3-44.2); Mean Corpuscular HGB Conc 33.2 g/dl (32-36); Mean Corpuscular Hemoglobin 34.8 pg (26-34); Mean Corpuscular Volume 104.7 fl (80-100); Mean Platelet Volume 10.5 fl (7.4-10.4); Monocytes Absolute Auto 0.8 K/mm3 (0.1-0.6); Monocytes Percent Auto 9.3 % (2.6-8.5); Neutrophils Absolute Auto 6.4 K/mm3 (1.3-6.7); Neutrophils Percent Auto 71.8 % (45.5-73.1); Nucleated Red Blood Cells Perc 0.2 % (0.0-0.2); Platelet Count Result 200 k/mm3 (150-375); Red Blood Count 3.39 M/mm3 (4.2-5.4); Red Cell Distribution Width 13.5 % (11.5-14.5); White Blood Count 8.9 K/mm3 (4.5-10.0)
[2023-11-11 13:18] LABS: Alanine Aminotransferase 154 U/L (6-35); Albumin Level 3.7 g/dL (3.5-5.1); Alkaline Phosphatase 278 U/L (38-126); Anion Gap 18 mmol/L (8-16); Aspartate Amino Transferase 394 U/L (14-36); Bilirubin,Total 3.6 mg/dL (0.2-1.3); Blood Urea Nitrogen 15 mg/dL (7-17); Calcium 9.8 mg/dL (8.4-10.2); Carbon Dioxide 24 mmol/L (22-30); Chloride 95 mmol/L (98-107); Estimated CRCL calculation 58 ml/min; Estimated Glomerular Filt Rate 60; Glucose 170 mg/dL (65-110); Potassium 3.4 mmol/L (3.4-5.0); Sodium 137 mmol/L (137-145)
[2023-11-11 13:19] LABS: Bilirubin Urine 2+ (Negative); Blood Urine Trace (Negative); Color Urine Dark Yellow (Yellow); Glucose Urine UA Negative (Negative); Ketones Urine Trace mg/dL (Negative); Leukocyte Esterase Ur 2+ LEU/UL (Negative); Nitrate Urine Positive (Negative); Protein Urine 2+ mg/dL (Negative); Specific Grav Ur 1.023 (1.001-1.035); pH Urine 5.5 (5.0-9.0)
[2023-11-11 13:20] LABS: Appearance Urine Slightly Cloudy (Clear); Bacteria Urine 4+ /hpf; Hyaline Casts Urine Present /lpf; Need Manual Microscopic Reviewed; RBC Urine >100 /hpf (0-2); Squamous Epithelial Cell Urine None seen /hpf (Few); WBC Urine >100 /hpf
[2023-11-11 13:21] LABS: Add Urine Microscopic? YES
--- NOTE | 2023-11-11 16:30 | ED.GENADULT ---
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 She was diagnosed in April of 2023. She had a negative LP unremarkable MRIs of her spine. She was treated with 5 days of IVIG. She follows with Dr. Paz here at [facility]. Patient had a viral GI illness last week with frequent diarrhea. over last 2 days patient has chronic paresthesias from the capsule now moved up to her waist. Reports increased weakness and unable to stand up Monistat to get on an exam table today. No recent falls. At baseline patient walks with a walker. Patient also reports she has been having dribbling of urine on herself when she realizes she needs to go to use the restroom. Related Data Allergies Allergy/AdvReac Type Severity Reaction Status Date / Time azithromycin Allergy Intermediate Hives Verified 11/11/23 10:02 erythromycin base Allergy Intermediate Hives Verified 11/11/23 10:02 morphine Allergy Intermediate Hives Verified 11/11/23 10:02 NSAIDS (Non-Steroidal AdvReac Intermediate Gastrointestinal Verified 11/11/23 10:02 Anti-Inflamma Upset Review of Systems Review of Systems: All systems reviewed & are unremarkable except as noted in HPI and below Constitutional: Constitutional: Denies chills, Denies fever(s) and Reports weakness ENT: Reports system reviewed and no additional complaints, except as documented Cardiovascular: Cardiovascular: Reports no additional cardiovascular complaints Respiratory: Respiratory: Reports no additional respiratory complaints Gastrointestinal: Gastrointestinal: Reports no additional gastrointestinal complaints Genitourinary: Genitourinary: Denies hematuria, Denies nocturia, Denies dysuria, Denies flank pain and Reports urinary incontinence Musculoskeletal: Musculoskeletal: Denies arthralgias, Denies joint swelling and Denies muscle cramps Neurologic: Denies syncope, Denies headache(s) and Reports focal weakness Comments: +paresthesias PMFSH Past Medical History Medical History (Reviewed 11/11/23 @ 10:11 by Maren Cooley, [facility]) Anxiety Asthma Depression Extremity numbness Gait difficulty Hyperlipidemia Hypertension Numbness and tingling Plantar fasciitis Surgical History Surgical History History of appendectomy History of History of sleeve gastrectomy 2016 Family History Family History Mother Diabetes mellitus Heart disease Hypertension Father Hypertension Cerebrovascular accident Cancer Social History Social History Social History: patient does live at home with her children. She does elect her friend Heike to be her serum get she is and/. Smoking packs per day: 1 Smoking cigarettes per day: 20.0 Years smoked: 13 Smoking pack-years: 13.00 Smoking status: Former smoker Tobacco type: cigarettes Second hand tobacco smoke exposure: No Smoking end date: 11/01/04 Alcohol intake: current Drinks per week: 1 Alcohol use details: very little alcohol intake Substance use: never Substance use type: does not use Lack of Transportation: No Lack of Food: Never True Current Housing: I Have Housing Concerned About Future Housing: No Difficulty Paying Gas/Electric Bills: No Difficulty Paying for Meds: No Currently Unemployed: No Education: High School Diploma/GED Difficulty w/ Childcare or Family Care: No Living arrangements: with family Occupation/Education: occupation 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
[2023-11-11] MEDS: SODIUM CHLORIDE 0.9% IV 1,000 ML 999 ML IV CONT (16:46)
--- NOTE | 2023-11-11 18:59 | PC.NURSE ---
Spoke with [facility] transfer center. Pt is being placed on wait list for bed.
[2023-11-11] MEDS: SODIUM CHLORIDE 0.9% IV 1,000 ML 150 ML IV CONT (19:53)
--- NOTE | 2023-11-11 21:19 | PCRCNOTE ---
completed negative inspiratory force on pt at 1930. Pt completed 3 NIP breaths. Highest breath was -80. Will complete again when necessary
[2023-11-11 23:00] LABS: INR 1.1; Partial Thromboplastin Time 29.9 SECONDS (22.3-36.8); Prothrombin Time 14.7 Seconds (11.1-14.7)
[2023-11-12] VITALS (52 sets, daily range): BP systolic 113–147; BP diastolic 68–85; PULSE 76–99; RESP 12–22; TEMP 36.4; O2SAT 94–100
[2023-11-12] MEDS: GABAPENTIN 300 MG CAPSULE 600 MG PO ×2 (02:37→21:49)
--- NOTE | 2023-11-12 05:52 | PCRCNOTE ---
Pt completed NIP again at 0500. patient took 3 breaths with the highest breath at -80.
[2023-11-12] MEDS: LORazepam INJ (*CRX) 2 MG/ML VIAL 0.5 MG IV PUSH (05:54)
--- NOTE | 2023-11-12 08:34 | PC.NURSE ---
0832 Spoke with Manuel from the [facility] transfer center to give clinical update. Manuel states they currently do not have any beds but they are hopeful for some discharges today.
--- NOTE | 2023-11-12 09:06 | PC.NURSE ---
Pt off the floor with radiology at this time.
[2023-11-12 10:02] LABS: Glucose CSF 56 mg/dL (40-70); Total Protein CSF 56 mg/dL (12-60)
[2023-11-12 10:34] LABS: Appearance CSF Clear (Clear); CSF source CSF; Color CSF Colorless (Colorless); Nucleated Cell CSF 0 /uL (0-5); Red Blood Cell CSF 1 (0-2)
--- NOTE | 2023-11-12 16:55 | PC.NURSE ---
1200 pt was offered lunch tray and pt denied
--- NOTE | 2023-11-12 16:56 | PC.NURSE ---
Pt resting at this time, dinner tray ordered for pt.
--- NOTE | 2023-11-12 19:43 | PC.NURSE ---
this rn assumed care of patient. this rn took patient report from [facility].
--- NOTE | 2023-11-12 21:33 | PC.NURSE ---
this rn spoke with EDP Dr. Munguia about pt asking for home medication of gabapentin 600mg that pt normally takes TID. This rn spoke with pharamacy to confirm. EDP Dr. Munguia verbally ordered PO capsule of gabapentin 60mg. This rn used closed loop communication to confirm route/ pt/ medication/ time.
--- NOTE | 2023-11-12 21:41 | PC.NURSE ---
this rn spoke with [facility] transfer center about pt update. [facility] transfer did not have a bed assignment at this time.
[2023-11-13 00:27] VITALS: PULSE 82; RESP 21
[2023-11-13 00:30] VITALS: PULSE 78; RESP 17
[2023-11-13 00:45] VITALS: PULSE 83; RESP 17
[2023-11-13 01:00] VITALS: BP 151/96; PULSE 88; RESP 13
[2023-11-18 14:29] LABS: Albumin, CSF 19.5 mg/dL (8.0-42.0); Albumin, Serum 2.6 g/dL (3.6-5.1); IgG Index, CSF 0.77 (<0.70); IgG, CSF 7.8 mg/dL (0.8-7.7); Immunoglobulin G, Serum 1350 mg/dL (600-1640); Myelin Basic Protein, CSF <2.0 mcg/L (<=4.0); Oligoclonal Bands (IgG), CSF Present (Absent)
== END 2023-11-13 02:05 | disposition short-term general hospital (02) ==
PROVIDERS: Emergency Medicine; Emergency Provider Emergency Medicine; PCP Internal Medicine
DX: G61.0 Guillain-Barre syndrome (principal); N39.0 Urinary tract infection, site not specified; R74.01 Elevation of levels of liver transaminase levels; J45.909 Unspecified asthma, uncomplicated; E78.5 Hyperlipidemia, unspecified; I10 Essential (primary) hypertension; Z98.84 Bariatric surgery status; Z87.891 Personal history of nicotine dependence; I87.2 Venous insufficiency (chronic) (peripheral); K76.0 Fatty (change of) liver, not elsewhere classified; R94.31 Abnormal electrocardiogram [ECG] [EKG]
CPT/HCPCS: 36415; 62328; 71046; 74177; 80053; 81001; 81025; 82040; 82042; 82784; 82945; 83873; 83916; 84157; 85025; 85610; 85730; 87040; 87070; 87077; 87086; 87186; 89051; 93005; 96361; 96365; 96375; 99285; A9270; J0696; J2060; J7030; Q9967

== ENCOUNTER 2023-11-19 13:40 | Inpatient (IN) | payer OTHER, SELFPAY ==
[2023-11-19] VITALS (12 sets, daily range): BP systolic 146–169; BP diastolic 74–110; PULSE 71–84; RESP 14–18; TEMP 36.7; O2SAT 94–99
--- NOTE | ~2023-11-19 | CT_ITS ---
EXAMINATION: CTA brain carotid DATE: 11/19/2023 21:12 INDICATION: Altered mental status TECHNIQUE: Computed tomographic angiography (CTA) of the head was performed without and with 200 mL O mnipaque-350 intravenous contrast. CTA of the neck was performed with intravenous contrast. The dose- length product was 1697.76 mGy-cm. Maximum intensity projection and volume rendered 3D-reconstruction s were created by the technologist on a separate workstation. Automated exposure control and iterativ e reconstruction technique were employed. COMPARISON: 04/28/2023 FINDINGS: HEAD CTA: There is no intracranial hemorrhage, acute infarction, or abnormal mass lesion. The ventric les are normal. There is no abnormal mass effect or midline shift. The epstein-white matter differentiat ion is normal. The basal cisterns are patent. The orbits are normal. The paranasal sinuses, mastoids and calvarium are normal. There is no significant stenosis of the basilar artery or posterior cerebral arteries. There is no si gnificant stenosis of the intracranial internal carotid arteries or the anterior or middle cerebral a rteries. The anterior communicating artery and posterior communicating arteries are normal. There is no aneurysm. NECK CTA: The thyroid gland is unremarkable. The submandibular and parotid glands are symmetric. Ther e is no lymphadenopathy. There are no masses identified. The airway is unremarkable. The superior med iastinum is unremarkable. There are no osseous abnormalities. There is 0% stenosis of the proximal right internal carotid artery relative to normal distal artery l umen diameter (NASCET criteria). There is 0% stenosis of the proximal left internal carotid artery re lative to normal distal artery lumen diameter. IMPRESSION: 1. No acute intracranial abnormality. Normal head CTA. 2. 0% stenosis of the proximal right internal carotid artery relative to normal distal artery lumen d iameter (NASCET criteria). 3. 0% stenosis of the proximal left internal carotid artery relative to normal distal artery lumen di ameter. Reviewed, dictated and finalized at location F. R CREW SUPERVISOR IMPRESSION: 1. No acute intracranial abnormality. Normal head CTA. 2. 0% stenosis of the proximal right internal carotid artery relative to normal distal artery lumen diameter (NASCET criteria). 3. 0% stenosis of the proximal left internal carotid artery relative to normal distal artery lumen diameter.
--- NOTE | ~2023-11-19 | XR_ITS ---
EXAMINATION: XR chest 1V portable INDICATION: Altered mental status TECHNIQUE: Portable AP chest at 1919 hours COMPARISON: 11/11/2023 FINDINGS: The lungs are free of acute opacities. No pleural effusion or pneumothorax. The cardiomedia stinal silhouette is normal. IMPRESSION: 1. No acute cardiopulmonary abnormality. Reviewed, dictated and finalized at location F. NDER INSPECTOR
--- NOTE | ~2023-11-19 | CT_ITS ---
EXAMINATION: CT abdomen pelvis w con INDICATION: Right lower quadrant pain TECHNIQUE: Computed tomographic images of the abdomen and pelvis were obtained after the administrati on of 100 cc of Omnipaque 350 intravenous contrast. The dose-length product (DLP) was 842.99 mGy-cm. Automated exposure control and iterative reconstruction technique were employed. COMPARISON: 11/11/2023 FINDINGS: Minimal dependent atelectasis is present in the lung bases. The heart size is normal. The l iver is diffusely low in attenuation when compared with the spleen, consistent with hepatic steatosis . The spleen, pancreas, gallbladder, and adrenal glands are normal. The kidneys are unremarkable. Con trast from earlier brain carotid CTA opacifies the collecting systems. No pathologically enlarged abd ominal or pelvic lymph nodes are identified. No free intraperitoneal gas or evidence of bowel obstruc tion. Right lower quadrant surgical changes likely reflect appendectomy. Colonic diverticulosis is pr esent without evidence of diverticulitis. There is a nabothian cyst of the cervix. Again noted is enl argement of the left. Uterine and ovarian veins, consistent with pelvic venous insufficiency. IMPRESSION: 1. No CT correlate for the patient's symptoms. 2. Diffuse hepatic steatosis. Reviewed, dictated and finalized at location F. [employer]IPMENT [employer]
--- NOTE | 2023-11-19 18:18 | ECG_ITS ---
Measurements Intervals [place] Rate: 81 P: 56 PA: 151 QRS: -2 QRSD: 78 T: 40 QT: 309 QTc: 361 Interpretive Statements SINUS RHYTHM BORDERLINE ST-T WAVE ABNORMALITY- DIFFUSE LEADS BASELINE ARTIFACT- I, II, III, AVR, AVL, AVF, V1-V6 BORDERLINE ECG COMPARED TO ECG 11/11/2023 12:54:53 NO SIGNIFICANT CHANGES Electronically Signed On 11-20-2023 8:14:33 PASTE PLANT SUPERVISOR by Denis Sánchez D.O.
--- NOTE | 2023-11-19 18:19 | ED.WEAKNESS ---
HPI - Weakness General Chief complaint: Weakness <Judith Lyon PA-C - Last Filed: 11/20/23 03:19> Stated complaint: weakness <Judith Lyon PA-C - Last Filed: 11/20/23 03:19> Time Seen by Provider: 11/19/23 17:52 <Judith Lyon PA-C - Last Filed: 11/20/23 03:19> History of Present Illness HPI Narrative: 48-year-old female with a history of GBS, hyperlipidemia, hypertension, EtOH use, transaminitis reports for evaluation with her friend at bedside for altered mental status. Patient is unable to provide much history, majority of the history is obtained by the patient's friend, Heike. The patient was diagnosed with GBS in the summer of 2022 after she presented with lower extremity weakness and numbness. She had MRIs of the cervical, thoracic and lumbar spine with and without contrast which were negative for any he has signal change involving the spinal cord. CSF studies were completely normal. CT head and CT brain carotid were unrevealing. She was treated for presumed GBS completed 5 doses of IVIG and discharged to rehab afterwards. Patient states that she did not feel that the IVIG was very helpful. She came to our ER on 11/11/2023 for concerns for worsening GBS. She had a viral GI illness last week with frequent diarrhea and had 2 days of paresthesias to her lower extremities. She was transferred to [facility] due to concerns for can epstein. She had a LP done at [facility] which showed no significant findings. Patient states follow-up arms, she was told that she may have MS, however she is unable to provide further history. She states he did not do much . She is discharged home Wednesday and her friend at bedside states that she was in normal mentation then. Heike had not heard from the patient in a few days, and received a phone call from her work yesterday stating that the patient did not show up to work. Heike showed up to the patient's house and found her on the toilet with diarrhea on the bed and throughout the house. the patient states she could not make it to the toilet in time, she denies incontinence. Heike states that she was unable to pick the patient up off of the toilet, therefore EMS was contacted and she was brought to the ED. The patient lives with her 14-year-old son who reported to Heike that the patient has not been eating or drinking in 2 days. The patient states she has no appetite. She endorses diarrhea, cough and congestion, blurred vision in the right eye for the past few weeks. She denies chest pain, shortness of breath, headache, diplopia, dysarthria, new onset numbness or weakness, abdominal pain, nausea vomiting, melena or hematochezia, dysuria or hematuria, fever, back pain. she does endorse drinking alcohol most days of the week, states she drinks half a pt of vodka. Her last drink was yesterday afternoon. She denies history of alcohol withdrawal or seizures. In total, the patient was brought to the ED due to changes in mental status. Last known well was Wednesday as this was the last time Heike was with the patient. The patient is unable to tell me when her mentation changed. <Judith Lyon PA-C - Last Filed: 11/20/23 03:19> Related Data Allergies/Adverse reactions: Allergies Allergy/AdvReac Type Severity Reaction Status Date / Time azithromycin Allergy Intermediate Hives Verified 11/19/23 21:23 erythromycin base Allergy Intermediate Hives Verified 11/19/23 21:23 morphine Allergy Intermediate Hives Verified 11/19/23 21:23 NSAIDS (Non-Steroidal AdvReac Intermediate Gastrointestinal Verified 11/19/23 21:23 Anti-Inflamma Upset <Judith Lyon PA-C - Last Filed: 11/20/23 03:19> Review of Systems Review of Systems: CONSTITUTIONAL: Denies fever, chills, or sweats. EYES: see HPI ENT: Denies rhinorrhea, congestion, sore throat, or otalgia. CARDIOVASCULAR: Denies chest pain, palpitations, or edema. RESPIRATORY: Denies cough or dyspnea. GASTROI
[2023-11-19 18:44] LABS: Basophils Absolute Auto 0.1 K/mm3 (0.0-0.1); Basophils Percent Auto 0.9 % (0.2-1.2); Eosinophils Absolute Auto 0.1 K/mm3 (0-0.3); Eosinophils Percent Auto 1.8 % (0-4.4); Hematocrit 37.9 % (37.0-47.0); Hemoglobin 12.3 g/dL (12.0-15.0); Immature Granulocyte Absolute 0.02 K/mm3 (0.00-0.031); Immature Granulocyte Percent A 0.3 % (0-0.5); Lymphocytes Absolute Auto 1.85 K/mm3 (0.9-3.2); Mean Corpuscular HGB Conc 32.5 g/dl (32-36); Mean Corpuscular Hemoglobin 33.4 pg (26-34); Mean Platelet Volume 10.4 fl (7.4-10.4); Monocytes Absolute Auto 0.7 K/mm3 (0.1-0.6); Monocytes Percent Auto 11.1 % (2.6-8.5); Neutrophils Absolute Auto 3.8 K/mm3 (1.3-6.7); Neutrophils Percent Auto 57.9 % (45.5-73.1); Platelet Count Result 243 k/mm3 (150-375); Red Blood Count 3.68 M/mm3 (4.2-5.4); Red Cell Distribution Width 14.7 % (11.5-14.5); White Blood Count 6.6 K/mm3 (4.5-10.0)
[2023-11-19 18:55] LABS: Atypical Lymphocytes Present; Platelet Estimate Adequate (Adequate); Schistocytes None Seen (NORMAL)
[2023-11-19 18:57] LABS: Acetaminophen < 10 ug/mL (10-30); Ammonia 15 umol/L (9-30); Ethanol < 10 mg/dL (<10); Salicylate < 1.0 mg/dL (2-20)
[2023-11-19 18:59] LABS: Alanine Aminotransferase 82 U/L (6-35); Alkaline Phosphatase 275 U/L (38-126); Anion Gap 24 mmol/L (8-16); Aspartate Amino Transferase 194 U/L (14-36); Bilirubin Direct 0.1 mg/dL (0-0.3); Bilirubin,Total 2.6 mg/dL (0.2-1.3); Blood Urea Nitrogen 18 mg/dL (7-17); Calcium 9.1 mg/dL (8.4-10.2); Carbon Dioxide 11 mmol/L (22-30); Chloride 113 mmol/L (98-107); Estimated CRCL calculation 57 ml/min; Estimated Glomerular Filt Rate 60; Glucose 127 mg/dL (65-110); Lactic Acid Reflex 1.6 mmol/L (0.7-2.0); Potassium 4.1 mmol/L (3.4-5.0); Sodium 148 mmol/L (137-145)
[2023-11-19 19:05] LABS: Prothrombin Time 13.8 Seconds (11.1-14.7)
[2023-11-19 19:06] LABS: Partial Thromboplastin Time 27.4 SECONDS (22.3-36.8)
[2023-11-19 19:18] LABS: Troponin I < 0.012 ng/mL (0.000-0.034)
[2023-11-19 19:21] LABS: Influenza A QL RT-PCR Positive (Negative); Influenza B QL RT-PCR Negative (Negative); RSV RNA, RT-PCR Negative (Negative); SARS-CoV-2 RNA PCR Negative (Negative)
--- NOTE | 2023-11-19 19:28 | PC.NURSE ---
Assumed care of patient at this time.
[2023-11-19] MEDS: SODIUM CHLORIDE 0.9% IV 1,000 ML 999 ML IV CONT ×2 (21:16)
[2023-11-19 22:16] LABS: Free T4 Free Thyroxine 1.45 ng/mL (0.78-2.19)
[2023-11-19 22:32] LABS: Appearance Urine Clear (Clear); Bacteria Urine None Seen /hpf; Bilirubin Urine 3+ (Negative); Blood Urine Negative (Negative); Color Urine Dark Yellow (Yellow); Glucose Urine UA Negative (Negative); Ketones Urine 1+ mg/dL (Negative); Leukocyte Esterase Ur Negative LEU/UL (Negative); Need Manual Microscopic Reviewed; Nitrate Urine Negative (Negative); Non Pathogenic Casts >20; Protein Urine 1+ mg/dL (Negative); Squamous Epithelial Cell Urine Few /hpf (Few); WBC Urine 0-5 /hpf
[2023-11-19 22:33] LABS: Add Urine Microscopic? YES; Specific Grav Ur 1.069 (1.001-1.035)
[2023-11-19] MEDS: THIAMINE HCL 200 MG/2 ML VIAL 500 MG IV PUSH (23:33)
[2023-11-19] MEDS: FOLIC ACID 1 MG/0.2 ML INJ IV PUSH (23:33)
[2023-11-19 23:34] LABS: Fractional Inspired Oxygen 21 %; HCO3 VBG 16.6 mEq/l (24.0-30.0); PO2 VBG 46.6 mmHg (35.0-45.0)
[2023-11-19 23:36] LABS: Device ROOM AIR; pH VBG 7.424 (7.300-7.400)
[2023-11-19] MEDS: DEXTROSE 5%/0.45% SOD CHL 1,000 ML 100 ML IV CONT (23:36)
[2023-11-20] VITALS (33 sets, daily range): BP systolic 140–165; BP diastolic 74–100; PULSE 68–106; RESP 12–24; TEMP 36–36.9; O2SAT 94–99
[2023-11-20] MEDS: LACTATED RINGERS 1,000 ML 999 ML IV CONT (01:18)
[2023-11-20 03:04] LABS: Barbiturate Screen Urine Negative (Negative)
[2023-11-20 03:09] LABS: Amphetamine Screen Urine Negative (Negative); Cannabinoid Screen Urine Negative (Negative); Cocaine Screen Urine Negative (Negative); Methadone Screen Urine Negative (Negative); Phencyclidine Screen Urine Negative (Negative)
[2023-11-20] MEDS: SODIUM BICARBONATE 8.4% 150 MEQ in DEXTROSE 5% 1,000 ML 950 ML 100 MEQ IV CONT (03:15)
[2023-11-20 03:23] LABS: Benzodiazepines Screen Urine Negative (Negative)
[2023-11-20 03:37] LABS: Opiate Screen Urine Negative (Negative)
--- NOTE | 2023-11-20 04:09 | ADMGEN ---
This patient, Jennifer Moss, was admitted to Medical Room 257-01. Patient/family oriented to hospital policies and general routines including ID bracelet, bed and alarms, visiting hours, pain management, procedures, bathroom and other care routines, personal items, smoking policy, room service/diet, and visiting hours. Information on how to activate the Rapid Response Team has been discussed. Patient/Family are encouraged to report perceived risks to care and to ask questions if they do not understand what they are told or what they should do.
[2023-11-20 05:43] LABS: Basophils Absolute Auto 0.1 K/mm3 (0.0-0.1); Basophils Percent Auto 0.9 % (0.2-1.2); Eosinophils Absolute Auto 0.1 K/mm3 (0-0.3); Eosinophils Percent Auto 1.7 % (0-4.4); Hematocrit 31.7 % (37.0-47.0); Hemoglobin 10.2 g/dL (12.0-15.0); Immature Granulocyte Absolute 0.04 K/mm3 (0.00-0.031); Immature Granulocyte Percent A 0.6 % (0-0.5); Lymphocytes Absolute Auto 2.69 K/mm3 (0.9-3.2); Lymphocytes Percent Auto 38.5 % (18.3-44.2); Mean Corpuscular HGB Conc 32.2 g/dl (32-36); Mean Corpuscular Hemoglobin 33.8 pg (26-34); Mean Platelet Volume 10.9 fl (7.4-10.4); Monocytes Absolute Auto 0.8 K/mm3 (0.1-0.6); Monocytes Percent Auto 11.6 % (2.6-8.5); Neutrophils Absolute Auto 3.3 K/mm3 (1.3-6.7); Neutrophils Percent Auto 46.7 % (45.5-73.1); Platelet Count Result 189 k/mm3 (150-375); Red Blood Count 3.02 M/mm3 (4.2-5.4); Red Cell Distribution Width 14.8 % (11.5-14.5)
[2023-11-20 05:57] LABS: Toxigenic C. Diff POSITIVE (NEGATIVE)
[2023-11-20 05:58] LABS: Alanine Aminotransferase 62 U/L (6-35); Alkaline Phosphatase 190 U/L (38-126); Anion Gap 14 mmol/L (8-16); Aspartate Amino Transferase 134 U/L (14-36); Bilirubin,Total 2.1 mg/dL (0.2-1.3); Blood Urea Nitrogen 14 mg/dL (7-17); Calcium 7.6 mg/dL (8.4-10.2); Carbon Dioxide 16 mmol/L (22-30); Chloride 116 mmol/L (98-107); Estimated CRCL calculation 79 ml/min; Estimated Glomerular Filt Rate > 60; Glucose 75 mg/dL (65-110); Potassium 3.4 mmol/L (3.4-5.0); Sodium 146 mmol/L (137-145)
[2023-11-20 06:00] LABS: Magnesium 1.3 mg/dL (1.6-2.3)
--- NOTE | 2023-11-20 08:27 | PM.IMHP ---
H&P: HPI History of Present Illness Date/Time: 11/20/23 08:27 Chief Complaint: Altered mental status Narrative: 48 years old lady with multiple comorbidities including gBS, hyperlipidemia,? hypertension, EtOH use, multiple sclerosis, brought to ED because of altered mental status. Patient could not provide detail history, history was taken from ER physician note and patient's friend Heike. Patient was brought to ED, patient was found confused. The patient lives with her 14-year-old son who reported to Heike that the patient has not been eating or drinking in 2 days.? Patient was recently discharged from [facility], patient was transferred to [facility] suspecting have GBS. She is discharged home Wednesday and her friend at bedside states that she was in normal mentation then.? Last known well was Wednesday as this was the last time. Patient had diarrhea yesterday and today., patient in the ED, patient was found to have C diff test positive,, influenza A positive, CBC without leukocytosis or anemia.? Chemistries significant for hypernatremia of 148, hyperchloremia of 113, bicarb of 11 with a gap of 24 BUN of 18, likely secondary to dehydration? /Alcoholic ketoacidosis. VBG obtained which shows metabolic acidosis with respiratory over compensation. Her bilirubin is elevated to 2.6, AST is 194, ALT is 82 alk-phos is 275 which is similar from prior. her TSH is elevated faded to 5.43, free T4 is normal at 1.45.? Salicylates, acetaminophen and alcohol levels are normal.? Flu is positive.? COVID and RSV are negative.? Ammonia normal at 15. ? UA without UTI. ? is negative.? EKG shows sinus rhythm with nonspecific T-wave abnormalities.? Trop is less than 0.12.? C diff ordered and pending.? CT abdomen pelvis shows diffuse hepatic steatosis.? CT brain carotid shows no acute intracranial abnormality, 0% stenosis in the right and left internal carotid arteries. ? ? She has received 2 L of IV normal saline, a L of D5 1/2 NS,? thiamine and folic acid.? Review of Systems Review of Systems: ROS negative except above PMFSH Past Medical History Medical History Anxiety Asthma Depression Extremity numbness Gait difficulty Hyperlipidemia Hypertension Numbness and tingling Plantar fasciitis Surgical History Surgical History History of appendectomy History of History of sleeve gastrectomy 2016 Family History Family History Mother Diabetes mellitus Heart disease Hypertension Father Hypertension Cerebrovascular accident Cancer Social History Social History Social History: patient does live at home with her children. She does elect her friend Heike to be her serum get she is and/. Smoking packs per day: 1 Smoking cigarettes per day: 20.0 Years smoked: 13 Smoking pack-years: 13.00 Smoking status: Never smoker Tobacco type: cigarettes Second hand tobacco smoke exposure: No Smoking end date: 11/01/04 Alcohol intake: current Drinks per week: 1 Alcohol use details: very little alcohol intake Substance use: never Substance use type: does not use Other substance usage details: daily drinker unable to state how much she drinks in a day Do You Feel Safe in your Home?: Yes Lack of Transportation: No Lack of Food: Never True Current Housing: I Have Housing Concerned About Future Housing: No Difficulty Paying Gas/Electric Bills: No Difficulty Paying for Meds: No Currently Unemployed: No Education: High School Diploma/GED Difficulty w/ Childcare or Family Care: No Living arrangements: with family Occupation/Education: occupation 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
[2023-11-20 09:08] LABS: Iron 75 ug/dL (37-170)
[2023-11-20 09:17] LABS: Percent Iron Saturation 43 % (20-50)
[2023-11-20] MEDS: MAGNESIUM SULF 2 GM/WATER 50ML 2 GM/50 ML BAG IVPB (09:34)
[2023-11-20] MEDS: POTASSIUM CHLORIDE 20 MEQ PACKET (FOR LIQUID) PO ×2 (09:40→18:01)
[2023-11-20 10:15] LABS: Folic Acid 16.8 ng/mL (2.76->20)
[2023-11-20] MEDS: DEXTROSE 5%/0.9% SOD CHL 1,000 ML 125 ML IV CONT ×2 (10:40→20:21)
[2023-11-20 10:50] LABS: Hepatitis B Surface Antigen Negative (Negative)
[2023-11-20 10:56] LABS: HAV RESULT Negative (Negative); Hepatitis B Core IgM Result Negative (Negative)
[2023-11-20 11:08] LABS: Hepatitis C Virus Antibody Negative (Negative)
[2023-11-20] MEDS: SODIUM BICARBONATE TAB 650 MG TABLET PO ×2 (13:44→18:02)
[2023-11-20] MEDS: VANCOMYCIN HCL 125 MG ORAL CAPSULE PO ×3 (13:47→23:11)
[2023-11-20] MEDS: OSELTAMIVIR PHOSPHATE 75 MG CAPSULE PO ×2 (13:49→20:18)
[2023-11-20] MEDS: CALCIUM CARBONATE (OSCAL) 500 MG TABLET PO ×2 (13:49→18:02)
[2023-11-21] VITALS (11 sets, daily range): BP systolic 146–153; BP diastolic 77–95; PULSE 73–95; RESP 16–18; TEMP 36.3–36.8; O2SAT 92–98
[2023-11-21 05:22] LABS: Basophils Absolute Auto 0.1 K/mm3 (0.0-0.1); Basophils Percent Auto 1.3 % (0.2-1.2); Eosinophils Absolute Auto 0.1 K/mm3 (0-0.3); Eosinophils Percent Auto 1.3 % (0-4.4); Hematocrit 31.2 % (37.0-47.0); Hemoglobin 9.8 g/dL (12.0-15.0); Immature Granulocyte Absolute 0.05 K/mm3 (0.00-0.031); Immature Granulocyte Percent A 0.9 % (0-0.5); Lymphocytes Absolute Auto 2.23 K/mm3 (0.9-3.2); Lymphocytes Percent Auto 41.3 % (18.3-44.2); Mean Corpuscular HGB Conc 31.4 g/dl (32-36); Mean Corpuscular Hemoglobin 33.6 pg (26-34); Mean Corpuscular Volume 106.8 fl (80-100); Mean Platelet Volume 11.2 fl (7.4-10.4); Monocytes Absolute Auto 0.4 K/mm3 (0.1-0.6); Monocytes Percent Auto 8.1 % (2.6-8.5); Neutrophils Absolute Auto 2.5 K/mm3 (1.3-6.7); Neutrophils Percent Auto 47.1 % (45.5-73.1); Platelet Count Result 176 k/mm3 (150-375); Red Blood Count 2.92 M/mm3 (4.2-5.4); Red Cell Distribution Width 14.8 % (11.5-14.5); White Blood Count 5.4 K/mm3 (4.5-10.0)
[2023-11-21 05:36] LABS: Alanine Aminotransferase 53 U/L (6-35); Alkaline Phosphatase 201 U/L (38-126); Anion Gap 7 mmol/L (8-16); Aspartate Amino Transferase 131 U/L (14-36); Bilirubin,Total 1.8 mg/dL (0.2-1.3); Blood Urea Nitrogen 9 mg/dL (7-17); Calcium 8.5 mg/dL (8.4-10.2); Carbon Dioxide 23 mmol/L (22-30); Chloride 119 mmol/L (98-107); Estimated CRCL calculation 91 ml/min; Estimated Glomerular Filt Rate > 60; Glucose 96 mg/dL (65-110); Magnesium 1.6 mg/dL (1.6-2.3); Phosphorus 2.7 mg/dL (2.5-4.5); Potassium 3.1 mmol/L (3.4-5.0); Sodium 149 mmol/L (137-145)
[2023-11-21] MEDS: DEXTROSE 5%/0.9% SOD CHL 1,000 ML 125 ML IV CONT (05:55)
[2023-11-21] MEDS: VANCOMYCIN HCL 125 MG ORAL CAPSULE PO ×4 (05:56→23:14)
--- NOTE | 2023-11-21 08:17 | PM.IMPN ---
Progress Note: A&P Assessment and Plan (1) Acute metabolic encephalopathy: Code(s): G93.41 - Metabolic encephalopathy Status: Acute (2) Wernicke encephalopathy: Code(s): E51.2 - Wernicke's encephalopathy Status: Acute (3) Starvation ketoacidosis: Code(s): T73.0XXA - Starvation, initial encounter; E87.29 - Other acidosis Status: Acute (4) ETOH abuse: Code(s): F10.10 - Alcohol abuse, uncomplicated Status: Acute (5) Alcoholic hepatitis: Code(s): K70.10 - Alcoholic hepatitis without ascites Status: Acute (6) Hypokalemia: Code(s): E87.6 - Hypokalemia Status: Acute (7) Hypernatremia: Code(s): E87.0 - Hyperosmolality and hypernatremia Status: Acute (8) MS (multiple sclerosis): Code(s): G35 - Multiple sclerosis Status: Acute Plan Altered mental status Differential including acute metabolic encephalopathy, Wernicke encephalopathy Patient has a history of alcohol abuse, binge drinking recently Patient is also found have electrolyte disorder including hypernatremia, metabolic acidosis due to starvation and alcohol abuse, hepatic steatosis CTA head and neck shows no occlusion stenosis, CTA of head shows no acute intracranial issues MRI workup in [facility] suggest MS Neuro check q.4 hours Fall precaution, Follow-up ammonia level, correct electrolyte disorders Start thiamine folic acid IV daily, start D5 normal saline IV 125 mL/hour Consult neurologist for evaluation treatment 11/21. Patient is alert oriented x3, denies focal weakness, vision change Alcoholic hepatitis Elevated liver enzymes, total bilirubin is, hypoalbuminemia And otherwise patient stop drinking alcohol CT abdomen pelvis shows no biliary obstruction Follow-up CMP Follow-up hepatitis panel Metabolic acidosis Likely secondary to alcohol abuse and starvation Bicarb 16, provide sodium bicarbonate p.o. Follow-up BMP Hypernatremia, hypocalcemia, hypomagnesemia Replete electrolyte with fluid resuscitation, calcium carbonate p.o., medicine sulfate IV Follow-up issue light, correct electrolyte abnormality accordingly 11/21/23: Acidosis and hypo magnesemia corrected, hyponatremia, hypokalemia persists, start D5 half-normal saline IV 125 mL/hour, potassium chloride IV and p.o. C diff colitis Patient has multiple episode of diarrhea, C diff positive Start vancomycin 125 mg q.6 hours p.o. for 10 days Had no diarrhea today Influenza A infection Patient has cough and scant phlegm Start Tamiflu 75 mg q.12 hours p.o. for 5 days Subjective Date/time seen: 11/21/23 08:17 Interval history: I saw exam patient today, patient is mentally clear, alert oriented x3, had no bowel movement today, had few lows to yesterday. Patient denied headache, focal weakness. Labs reviewed Exam Narrative: GENERAL: Ill-appearing, in no acute distress. Well-nourished. - EYES: EOMI. Anicteric. - HENT: Dry mucous membrane - LUNGS: Clear to auscultation bilaterally, no wheezing, rhonchi, or rales. - CARDIOVASCULAR: Regular rate and rhythm. No murmur. No JVD. - ABDOMEN: Soft, non-tender and non-distended. No palpable masses. - EXTREMITIES: No edema. Peripheral pulses 2+. Non-tender. - NEUROLOGIC: No focal neurological deficits. CN II-XII grossly intact. - PSYCHIATRIC: Awake, Alert and oriented x 3. Appropriate mood and affect. - SKIN: No rashes or lesions. Warm. - LYMPH: No cervical lymphadenopathy. Objective Data Vital Signs Vital Signs: Vital Signs - 24 hr 11/20/23 13:50 11/20/23 14:00 11/20/23 15:39 Temperature 97.4 F L Pulse Rate 87 Pulse Rate [Apical] Respiratory Rate 16 Blood Pressure 148/76 H Pulse Oximetry 98 Oxygen Delivery Room Air Room Air 11/20/23 09:40 11/20/23 12:01 11/20/23 16:04 Temperature Pulse Rate 89 81 Pulse Rate [Apical] Respiratory Rate Blood Pressure Pulse Oximetry Oxygen Delivery Room Air
[2023-11-21 08:45] LABS: Ammonia 16 umol/L (9-30)
[2023-11-21] MEDS: POTASSIUM CHLORIDE 20 MEQ PACKET (FOR LIQUID) PO ×2 (09:06→18:04)
[2023-11-21] MEDS: POTASSIUM CHLORIDE 20 MEQ PACKET (FOR LIQUID) 40 MEQ PO (09:06)
[2023-11-21] MEDS: OSELTAMIVIR PHOSPHATE 75 MG CAPSULE PO ×2 (09:08→20:07)
[2023-11-21] MEDS: CALCIUM CARBONATE (OSCAL) 500 MG TABLET PO ×3 (09:08→18:04)
[2023-11-21] MEDS: SODIUM BICARBONATE TAB 650 MG TABLET PO ×3 (09:08→18:04)
[2023-11-21] MEDS: DEXTROSE 5%/0.45% SOD CHL 1,000 ML 70 ML IV CONT ×2 (09:32→23:15)
[2023-11-21] MEDS: POTASSIUM CHLORIDE INJ 40 MEQ in SODIUM CHLORIDE 0.9% IV 500 ML 130 MEQ IVPB (09:33)
--- NOTE | 2023-11-21 10:05 | WPDNEURCNPN ---
Assessment and Plan Assessment and plan (1) MS (multiple sclerosis): Code(s): G35 - Multiple sclerosis Status: Acute (2) Influenza A: Code(s): J10.1 - Influenza due to other identified influenza virus with other respiratory manifestations Status: Acute (3) C. difficile diarrhea: Code(s): A04.72 - Enterocolitis due to Clostridium difficile, not specified as recurrent Status: Acute Plan Ms. Moss is a year old female with a history of likely newly diagnosed MS. Her oligoclonal bands form her LP last week are positive. She had MRI brain and cervical spine done during her admission at [facility] over a week ago that reportedly showed signs of demyelination -- we do not have those records. She is currently admitted after being diagnosed with influenza and C. diff. She denies any recent new focal neurological symptoms. We will work on getting MR imaging from recent admission at [place]. If there is confirmation of demyelinating lesions, we will plan on starting MS medication as outpatient. With her history of transaminitis, I think Kesimpta would be a good, safe option as it would not affect her liver enzymes. I discussed with with patient. Will coordinate close follow-up after discharge. Consult date: 11/21/23 Reason for consult: Altered mental status; MS HPI: Jennifer Moss is a 48 year old female with a history of GBS, HLD, HTN, EtOH use, transaminitis who presents with altered metnal status. Ranjana was treated for GBS in summer after presenting with ascending numbness and lower extremity weakness. She had MRI of the cervical spine, thoracic, and lumbar spine with and without contrast which was negative for any signal change. CSF studies were normal at that time. She was treated with IVIG for presumed GBS x 5 days and discharged to rehab afterwards. She presented to [place] on 11/11 due to concerns for worsening GBS due to 2 days of paraesthesias in her lower extremities. 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 She was transferred to [facility] for further evaluation. At [facility] they did and MRI brain and cervical spine with findings reportedly concerning for MS as well. She was also found to have a UTI for which she was treated. She was discharged home last week and had normal mentation at the time. Patient's friend had not heard from patient a few days prior to presentation and patient also did not show up to work the day prior to presentation. Friend showed up to patient's house and found her on the toilet with diarrhea on the bed and throughout the house. Patient reported that she could not make it to the bathroom in time. She denied and incontinence. Friend helped her off the toilet and EMS was contacted. She was taken to [place] ED. On presentation, her BP was in the 150-160s systolic. CBC showed normal WBC. Her UA was not concerning for infection. TSH is elevated to. Salicylate, acetaminophen, and alcohol levels were negative. UDS was negative. She was noted to be Flu positive. CTA brain/carotid did not show any acute findings and there was no evidence of stenosis. Patient drinks about half a pint of vodka every day. Her last drink was day before yesterday. She denies history of alcohol withdrawal or seizures. Jennifer denies any new focal neurological deficits. She still has numbness up to her waist, which is mostly unchanged from this past summer. She denies any new vision concerns, speech changes, dysphagia, focal weakness or unilateral numbness. She does have urinary incontinence on occasion which has been ongoing. She is C diff positive. Review of Systems Review of Systems: All systems reviewed & are unremarkable except as noted in HPI and below PMFSH Past Medical History Medical History Anxiety Asthma Depression Extremity numbness Gait difficulty Hyperlipidemia Hypertension Numbness and
[2023-11-21 12:48] LABS: Hepatitis B Surface Antigen Negative (Negative)
[2023-11-21 12:53] LABS: HAV RESULT Negative (Negative); Hepatitis B Core IgM Result Negative (Negative)
[2023-11-21] MEDS: EUCERIN CREAM 120 GM JAR 1 APPLIC TOPICAL ×2 (13:00→18:05)
[2023-11-21 13:05] LABS: Hepatitis C Virus Antibody Negative (Negative)
[2023-11-22] VITALS (9 sets, daily range): BP systolic 127–163; BP diastolic 63–99; PULSE 78–104; RESP 14–20; TEMP 36.6–36.7; O2SAT 97–100; BMI 30.2
[2023-11-22] MEDS: VANCOMYCIN HCL 125 MG ORAL CAPSULE PO ×4 (05:06→23:53)
[2023-11-22] MEDS: DEXTROSE 5%/0.45% SOD CHL 1,000 ML 125 ML IV CONT ×2 (07:19→17:29)
[2023-11-22] MEDS: CALCIUM CARBONATE (OSCAL) 500 MG TABLET PO ×3 (07:19→17:32)
[2023-11-22] MEDS: POTASSIUM CHLORIDE 20 MEQ PACKET (FOR LIQUID) PO ×2 (08:13→17:32)
[2023-11-22] MEDS: EUCERIN CREAM 120 GM JAR 1 APPLIC TOPICAL ×2 (08:13→17:32)
[2023-11-22] MEDS: OSELTAMIVIR PHOSPHATE 75 MG CAPSULE PO ×2 (08:13→20:21)
[2023-11-22] MEDS: SODIUM BICARBONATE TAB 650 MG TABLET PO ×3 (08:13→17:32)
--- NOTE | 2023-11-22 08:15 | PM.IMPN ---
Progress Note: A&P Assessment and Plan (1) Acute metabolic encephalopathy: Code(s): G93.41 - Metabolic encephalopathy Status: Acute (2) Wernicke encephalopathy: Code(s): E51.2 - Wernicke's encephalopathy Status: Acute (3) Starvation ketoacidosis: Code(s): T73.0XXA - Starvation, initial encounter; E87.29 - Other acidosis Status: Acute (4) ETOH abuse: Code(s): F10.10 - Alcohol abuse, uncomplicated Status: Acute (5) Alcoholic hepatitis: Code(s): K70.10 - Alcoholic hepatitis without ascites Status: Acute (6) Hypokalemia: Code(s): E87.6 - Hypokalemia Status: Acute (7) Hypernatremia: Code(s): E87.0 - Hyperosmolality and hypernatremia Status: Acute (8) MS (multiple sclerosis): Code(s): G35 - Multiple sclerosis Status: Acute Plan Altered mental status Differential including acute metabolic encephalopathy, Wernicke encephalopathy Patient has a history of alcohol abuse, binge drinking recently Patient is also found have electrolyte disorder including hypernatremia, metabolic acidosis due to starvation and alcohol abuse, hepatic steatosis CTA head and neck shows no occlusion stenosis, CTA of head shows no acute intracranial issues MRI workup in [facility] suggest MS Neuro check q.4 hours Fall precaution, Follow-up ammonia level, correct electrolyte disorders Start thiamine folic acid IV daily, start D5 normal saline IV 125 mL/hour Consult neurologist for evaluation treatment 11/21. Patient is alert oriented x3, denies focal weakness, vision change Alcoholic hepatitis Elevated liver enzymes, total bilirubin is, hypoalbuminemia And otherwise patient stop drinking alcohol CT abdomen pelvis shows no biliary obstruction Follow-up CMP: Liver enzymes are trending down Follow-up hepatitis panel: Negative up hepatitis viral infection Metabolic acidosis Likely secondary to alcohol abuse and starvation Bicarb 16, provide sodium bicarbonate p.o. Follow-up BMP Improving Hypernatremia, hypocalcemia, hypomagnesemia Replete electrolyte with fluid resuscitation, calcium carbonate p.o., medicine sulfate IV Follow-up issue light, correct electrolyte abnormality accordingly 11/21/23: Acidosis and hypo magnesemia corrected, hyponatremia, hypokalemia persists, start D5 half-normal saline IV 125 mL/hour, potassium chloride IV and p.o. 11/22: Mg 1 start magnesium sulfate 2 g IV C diff colitis Patient has multiple episode of diarrhea, C diff positive Start vancomycin 125 mg q.6 hours p.o. for 10 days Had no diarrhea today Influenza A infection Patient has cough and scant phlegm Start Tamiflu 75 mg q.12 hours p.o. for 5 days Subjective Date/time seen: 11/22/23 08:15 Interval history: I saw exam patient today, patient is mentally clear, had 2 loose stool yesterday, 1 bowel movement today,, denies headache, no focal weakness, Patient denied headache, focal weakness. Labs reviewed Exam Narrative: GENERAL: Ill-appearing, in no acute distress. Well-nourished. - EYES: EOMI. Anicteric. - HENT: Dry mucous membrane - LUNGS: Clear to auscultation bilaterally, no wheezing, rhonchi, or rales. - CARDIOVASCULAR: Regular rate and rhythm. No murmur. No JVD. - ABDOMEN: Soft, non-tender and non-distended. No palpable masses. - EXTREMITIES: No edema. Peripheral pulses 2+. Non-tender. - NEUROLOGIC: No focal neurological deficits. CN II-XII grossly intact. - PSYCHIATRIC: Awake, Alert and oriented x 3. Appropriate mood and affect. - SKIN: No rashes or lesions. Warm. - LYMPH: No cervical lymphadenopathy. Objective Data Vital Signs Vital Signs: Vital Signs - 24 hr 11/21/23 14:00 11/21/23 12:01 11/21/23 16:03 Temperature 97.4 F L Pulse Rate 95 81 92 Respiratory Rate 18 Blood Pressure 149/95 H Pulse Oximetry 98 Oxygen Delivery 11/21/23 09:30 11/21/23 20:00 11/21/23 20:00 Temperature Pulse Rate 83 Res
[2023-11-22 10:01] LABS: Basophils Absolute Auto 0.1 K/mm3 (0.0-0.1); Basophils Percent Auto 1.6 % (0.2-1.2); Eosinophils Absolute Auto 0.1 K/mm3 (0-0.3); Hematocrit 33.6 % (37.0-47.0); Hemoglobin 10.4 g/dL (12.0-15.0); Immature Granulocyte Absolute 0.05 K/mm3 (0.00-0.031); Immature Granulocyte Percent A 0.8 % (0-0.5); Lymphocytes Absolute Auto 2.49 K/mm3 (0.9-3.2); Lymphocytes Percent Auto 40.6 % (18.3-44.2); Mean Corpuscular Hemoglobin 33.4 pg (26-34); Mean Platelet Volume 11.2 fl (7.4-10.4); Monocytes Absolute Auto 0.5 K/mm3 (0.1-0.6); Monocytes Percent Auto 7.5 % (2.6-8.5); Neutrophils Absolute Auto 2.9 K/mm3 (1.3-6.7); Neutrophils Percent Auto 47.5 % (45.5-73.1); Platelet Count Result 183 k/mm3 (150-375); Red Blood Count 3.11 M/mm3 (4.2-5.4); Red Cell Distribution Width 14.8 % (11.5-14.5); White Blood Count 6.1 K/mm3 (4.5-10.0)
[2023-11-22 10:23] LABS: Alanine Aminotransferase 48 U/L (6-35); Albumin Level 2.9 g/dL (3.5-5.1); Alkaline Phosphatase 169 U/L (38-126); Anion Gap 9 mmol/L (8-16); Aspartate Amino Transferase 130 U/L (14-36); Bilirubin,Total 1.6 mg/dL (0.2-1.3); Blood Urea Nitrogen 2 mg/dL (7-17); Calcium 8.9 mg/dL (8.4-10.2); Carbon Dioxide 20 mmol/L (22-30); Chloride 112 mmol/L (98-107); Estimated CRCL calculation 107 ml/min; Estimated Glomerular Filt Rate > 60; Glucose 102 mg/dL (65-110); Phosphorus 2.5 mg/dL (2.5-4.5); Potassium 4.4 mmol/L (3.4-5.0); Sodium 141 mmol/L (137-145)
[2023-11-22 10:31] LABS: Atypical Lymphocytes Present; Macrocytosis 1+ (NORMAL); Platelet Estimate Adequate (Adequate); Polychromasia 1+ (NORMAL); Schistocytes Rare (NORMAL); Smudge Cells PRESENT
[2023-11-22] MEDS: MAGNESIUM SULF 2 GM/WATER 50ML 2 GM/50 ML BAG IVPB (12:25)
[2023-11-23] VITALS (9 sets, daily range): BP systolic 129–154; BP diastolic 81–99; PULSE 64–115; RESP 16–20; TEMP 36.5–36.7; O2SAT 97–99
[2023-11-23] MEDS: DEXTROSE 5%/0.45% SOD CHL 1,000 ML 125 ML IV CONT ×2 (01:10→09:23)
[2023-11-23 05:37] LABS: Basophils Absolute Auto 0.1 K/mm3 (0.0-0.1); Basophils Percent Auto 1.5 % (0.2-1.2); Eosinophils Absolute Auto 0.1 K/mm3 (0-0.3); Eosinophils Percent Auto 1.8 % (0-4.4); Hematocrit 32.5 % (37.0-47.0); Hemoglobin 10.3 g/dL (12.0-15.0); Immature Granulocyte Absolute 0.06 K/mm3 (0.00-0.031); Immature Granulocyte Percent A 0.9 % (0-0.5); Lymphocytes Absolute Auto 2.49 K/mm3 (0.9-3.2); Lymphocytes Percent Auto 37.2 % (18.3-44.2); Mean Corpuscular HGB Conc 31.7 g/dl (32-36); Mean Corpuscular Hemoglobin 33.2 pg (26-34); Mean Corpuscular Volume 104.8 fl (80-100); Mean Platelet Volume 11.6 fl (7.4-10.4); Monocytes Absolute Auto 0.5 K/mm3 (0.1-0.6); Monocytes Percent Auto 8.1 % (2.6-8.5); Neutrophils Absolute Auto 3.4 K/mm3 (1.3-6.7); Neutrophils Percent Auto 50.5 % (45.5-73.1); Platelet Count Result 175 k/mm3 (150-375); Red Cell Distribution Width 14.6 % (11.5-14.5); White Blood Count 6.7 K/mm3 (4.5-10.0)
[2023-11-23 05:53] LABS: Alanine Aminotransferase 42 U/L (6-35); Albumin Level 2.9 g/dL (3.5-5.1); Alkaline Phosphatase 143 U/L (38-126); Anion Gap 10 mmol/L (8-16); Aspartate Amino Transferase 96 U/L (14-36); Bilirubin,Total 1.4 mg/dL (0.2-1.3); Blood Urea Nitrogen 3 mg/dL (7-17); Calcium 9.2 mg/dL (8.4-10.2); Carbon Dioxide 20 mmol/L (22-30); Chloride 111 mmol/L (98-107); Estimated CRCL calculation 107 ml/min; Estimated Glomerular Filt Rate > 60; Glucose 101 mg/dL (65-110); Magnesium 1.4 mg/dL (1.6-2.3); Potassium 4.2 mmol/L (3.4-5.0); Sodium 141 mmol/L (137-145)
[2023-11-23] MEDS: VANCOMYCIN HCL 125 MG ORAL CAPSULE PO ×3 (05:59→18:24)
[2023-11-23] MEDS: OSELTAMIVIR PHOSPHATE 75 MG CAPSULE PO ×2 (09:22→20:44)
[2023-11-23] MEDS: POTASSIUM CHLORIDE 20 MEQ PACKET (FOR LIQUID) PO ×2 (09:22→18:24)
[2023-11-23] MEDS: EUCERIN CREAM 120 GM JAR 1 APPLIC TOPICAL ×2 (09:24→18:26)
[2023-11-23 09:43] LABS: Immunoglobulin A 899 mg/dL (47-310); Immunoglobulin G 1405 mg/dL (600-1640); Immunoglobulin M 97 mg/dL (50-300)
[2023-11-23] MEDS: SODIUM BICARBONATE TAB 650 MG TABLET PO ×2 (13:09→18:24)
[2023-11-23] MEDS: CALCIUM CARBONATE (OSCAL) 500 MG TABLET PO ×2 (13:09→18:24)
--- NOTE | 2023-11-23 13:17 | PM.IMPN ---
Progress Note: A&P Assessment and Plan (1) Acute metabolic encephalopathy: Code(s): G93.41 - Metabolic encephalopathy Status: Acute (2) Wernicke encephalopathy: Code(s): E51.2 - Wernicke's encephalopathy Status: Acute (3) Starvation ketoacidosis: Code(s): T73.0XXA - Starvation, initial encounter; E87.29 - Other acidosis Status: Acute (4) ETOH abuse: Code(s): F10.10 - Alcohol abuse, uncomplicated Status: Acute (5) Alcoholic hepatitis: Code(s): K70.10 - Alcoholic hepatitis without ascites Status: Acute (6) Hypokalemia: Code(s): E87.6 - Hypokalemia Status: Acute (7) Hypernatremia: Code(s): E87.0 - Hyperosmolality and hypernatremia Status: Acute (8) MS (multiple sclerosis): Code(s): G35 - Multiple sclerosis Status: Acute Plan Altered mental status Differential including acute metabolic encephalopathy, Wernicke encephalopathy Patient has a history of alcohol abuse, binge drinking recently Patient is also found have electrolyte disorder including hypernatremia, metabolic acidosis due to starvation and alcohol abuse, hepatic steatosis CTA head and neck shows no occlusion stenosis, CTA of head shows no acute intracranial issues MRI workup in [facility] suggest MS Neuro check q.4 hours Fall precaution, Follow-up ammonia level, correct electrolyte disorders Consult neurologist for evaluation treatment 11/21. Patient is alert oriented x3, denies focal weakness, vision change 11/23: Pt seen by neurologist will need to start MS medication as outpatient.?dc fluids and iv thiamine change to oral Alcoholic hepatitis Elevated liver enzymes, total bilirubin is, hypoalbuminemia And otherwise patient stop drinking alcohol CT abdomen pelvis shows no biliary obstruction Follow-up CMP: Liver enzymes are trending down Follow-up hepatitis panel: Negative up hepatitis viral infection Metabolic acidosis Likely secondary to alcohol abuse and starvation Bicarb 16, provide sodium bicarbonate p.o. Follow-up BMP Hypernatremia, hypocalcemia, hypomagnesemia Replete electrolyte with fluid resuscitation, calcium carbonate p.o., medicine sulfate IV Follow-up issue light, correct electrolyte abnormality accordingly 11/21/23: Acidosis and hypo magnesemia corrected, hyponatremia, hypokalemia persists, start D5 half-normal saline IV 125 mL/hour, potassium chloride IV and p.o. 11/22: Mg 1 start magnesium sulfate 2 g IV 11/23: add oral mg oxide C diff colitis Patient has multiple episode of diarrhea, C diff positive Start vancomycin 125 mg q.6 hours p.o. for 10 days Had no diarrhea today Influenza A infection Patient has cough and scant phlegm Start Tamiflu 75 mg q.12 hours p.o. for 5 days Hopeful dc in 1-2 days time Subjective Date/time seen: 11/23/23 13:17 Interval history: 48 years old lady with multiple comorbidities including gBS, hyperlipidemia,? hypertension, EtOH use, multiple sclerosis, brought to ED because of altered mental status.? Patient could not provide detail history, history was taken from ER physician note and patient's friend Heike.? Patient was brought to ED, patient was found confused.? Pt recovering from Ams, alcholol abuse flu positive and cdiff infection No diarrhea to day possible dc in 1-2 days time Review of Systems Review of Systems: ROS negative except above Exam Narrative: GENERAL: Ill-appearing, in no acute distress. Well-nourished. - HENT: Dry mucous membrane - LUNGS: Clear to auscultation bilaterally, no wheezing, rhonchi, or rales. - CARDIOVASCULAR: Regular rate and rhythm. No murmur. No JVD. - ABDOMEN: Soft, non-tender and non-distended. No palpable masses. - EXTREMITIES: No edema. Peripheral pulses 2+. Non-tender. - NEUROLOGIC: No focal neurological deficits. CN II-XII grossly intact. - PSYCHIATRIC: Awake, Alert and oriented x 3. Appropriate mood and affect. - SKIN: No rashes or
[2023-11-23 13:58] LABS: NIL 0.03 IU/mL; Quantiferon TB Plus, 1T NEGATIVE (NEGATIVE); TB2-NIL <0.00 IU/mL
[2023-11-23] MEDS: THIAMINE HCL 100 MG TABLET PO (15:15)
[2023-11-23] MEDS: lisinopriL 20 MG TABLET 40 MG PO (15:15)
[2023-11-23] MEDS: GABAPENTIN 300 MG CAPSULE 600 MG PO ×2 (15:15→20:43)
[2023-11-23] MEDS: THERAPEUTIC MULTIVITAMINS/MINERALS TAB (*BKC) 1 TABLET PO (15:15)
[2023-11-23] MEDS: SERTRALINE HCL 50 MG TABLET 100 MG PO (15:16)
[2023-11-23] MEDS: MAGNESIUM OXIDE 200 MG TABLET PO (20:43)
[2023-11-24] VITALS: PULSE 70
[2023-11-24] MEDS: VANCOMYCIN HCL 125 MG ORAL CAPSULE PO ×3 (00:01→12:36)
[2023-11-24 04:00] VITALS: PULSE 65
[2023-11-24 05:57] LABS: Anion Gap 8 mmol/L (8-16); Basophils Absolute Auto 0.1 K/mm3 (0.0-0.1); Basophils Percent Auto 1.7 % (0.2-1.2); Blood Urea Nitrogen 5 mg/dL (7-17); Calcium 9.3 mg/dL (8.4-10.2); Carbon Dioxide 26 mmol/L (22-30); Chloride 110 mmol/L (98-107); Eosinophils Absolute Auto 0.1 K/mm3 (0-0.3); Eosinophils Percent Auto 2.2 % (0-4.4); Estimated CRCL calculation 91 ml/min; Estimated Glomerular Filt Rate > 60; Glucose 78 mg/dL (65-110); Hematocrit 32.2 % (37.0-47.0); Hemoglobin 10.1 g/dL (12.0-15.0); Immature Granulocyte Absolute 0.07 K/mm3 (0.00-0.031); Immature Granulocyte Percent A 1.2 % (0-0.5); Lymphocytes Absolute Auto 2.39 K/mm3 (0.9-3.2); Lymphocytes Percent Auto 40.2 % (18.3-44.2); Mean Corpuscular HGB Conc 31.4 g/dl (32-36); Mean Corpuscular Hemoglobin 33.6 pg (26-34); Mean Platelet Volume 11.7 fl (7.4-10.4); Monocytes Absolute Auto 0.7 K/mm3 (0.1-0.6); Monocytes Percent Auto 11.1 % (2.6-8.5); Neutrophils Absolute Auto 2.6 K/mm3 (1.3-6.7); Neutrophils Percent Auto 43.6 % (45.5-73.1); Platelet Count Result 173 k/mm3 (150-375); Potassium 3.9 mmol/L (3.4-5.0); Red Blood Count 3.01 M/mm3 (4.2-5.4); Red Cell Distribution Width 15.1 % (11.5-14.5); Sodium 144 mmol/L (137-145)
[2023-11-24 06:31] LABS: Anisocytosis 1+ (NORMAL); Platelet Estimate Adequate (Adequate); Schistocytes None Seen (NORMAL)
[2023-11-24 07:29] VITALS: BP 147/78; PULSE 72; RESP 16; TEMP 36.6; O2SAT 97
[2023-11-24 08:00] VITALS: PULSE 68
[2023-11-24] MEDS: THERAPEUTIC MULTIVITAMINS/MINERALS TAB (*BKC) 1 TABLET PO (09:54)
[2023-11-24] MEDS: lisinopriL 20 MG TABLET 40 MG PO (09:55)
[2023-11-24] MEDS: GABAPENTIN 300 MG CAPSULE 600 MG PO ×2 (09:55→12:36)
[2023-11-24] MEDS: SODIUM BICARBONATE TAB 650 MG TABLET PO ×2 (09:55→12:36)
[2023-11-24] MEDS: SERTRALINE HCL 50 MG TABLET 100 MG PO (09:55)
[2023-11-24] MEDS: CALCIUM CARBONATE (OSCAL) 500 MG TABLET PO ×2 (09:56→12:36)
[2023-11-24] MEDS: POTASSIUM CHLORIDE 20 MEQ PACKET (FOR LIQUID) PO (09:56)
[2023-11-24] MEDS: THIAMINE HCL 100 MG TABLET PO (09:56)
[2023-11-24] MEDS: OSELTAMIVIR PHOSPHATE 75 MG CAPSULE PO (09:56)
[2023-11-24] MEDS: MAGNESIUM OXIDE 200 MG TABLET PO (09:56)
[2023-11-24] MEDS: EUCERIN CREAM 120 GM JAR 1 APPLIC TOPICAL (09:57)
[2023-11-24 12:00] VITALS: PULSE 92
--- NOTE | 2023-11-24 12:15 | PM.DS ---
DS: Admitting Diagnosis Discharge Date 11/23/2023 Admitting Diagnosis Altered mental status DS: Discharge Diagnosis Discharge Diagnosis (1) Acute metabolic encephalopathy: Code(s): G93.41 - Metabolic encephalopathy Status: Acute (2) Wernicke encephalopathy: Code(s): E51.2 - Wernicke's encephalopathy Status: Acute (3) Starvation ketoacidosis: Code(s): T73.0XXA - Starvation, initial encounter; E87.29 - Other acidosis Status: Acute (4) ETOH abuse: Code(s): F10.10 - Alcohol abuse, uncomplicated Status: Acute (5) Alcoholic hepatitis: Code(s): K70.10 - Alcoholic hepatitis without ascites Status: Acute (6) Hypokalemia: Code(s): E87.6 - Hypokalemia Status: Acute (7) Hypernatremia: Code(s): E87.0 - Hyperosmolality and hypernatremia Status: Acute (8) MS (multiple sclerosis): Code(s): G35 - Multiple sclerosis Status: Acute Plan Altered mental status Differential including acute metabolic encephalopathy, Wernicke encephalopathy Patient has a history of alcohol abuse, binge drinking recently Patient is also found have electrolyte disorder including hypernatremia, metabolic acidosis due to starvation and alcohol abuse, hepatic steatosis CTA head and neck shows no occlusion stenosis, CTA of head shows no acute intracranial issues MRI workup in [facility] suggest MS Neuro check q.4 hours Fall precaution, Follow-up ammonia level, correct electrolyte disorders Consult neurologist for evaluation treatment 11/21. Patient is alert oriented x3, denies focal weakness, vision change 11/23: Pt seen by neurologist will need to start MS medication as outpatient.?dc fluids and iv thiamine change to oral 11/24: ok to Dc with neurology follow up Alcoholic hepatitis Elevated liver enzymes, total bilirubin is, hypoalbuminemia And otherwise patient stop drinking alcohol CT abdomen pelvis shows no biliary obstruction Follow-up CMP: Liver enzymes are trending down Follow-up hepatitis panel: Negative up hepatitis viral infection Metabolic acidosis Likely secondary to alcohol abuse and starvation Bicarb 16, provide sodium bicarbonate p.o. Stop sodium bicarbonate on DC Hypernatremia, hypocalcemia, hypomagnesemia Replete electrolyte with fluid resuscitation, calcium carbonate p.o., medicine sulfate IV Follow-up issue light, correct electrolyte abnormality accordingly 11/21/23: Acidosis and hypo magnesemia corrected, hyponatremia, hypokalemia persists, start D5 half-normal saline IV 125 mL/hour, potassium chloride IV and p.o. 11/22: Mg 1 start magnesium sulfate 2 g IV 11/23: add oral mg oxide 11/24: pt ok to DC C diff colitis Patient has multiple episode of diarrhea, C diff positive Start vancomycin 125 mg q.6 hours p.o. for 10 days Had no diarrhea today Influenza A infection Patient has cough and scant phlegm Start Tamiflu 75 mg q.12 hours p.o. for 5 days DS: Summary Hospital Course Hospital Course: Altered mental status Differential including acute metabolic encephalopathy, Wernicke encephalopathy Patient has a history of alcohol abuse, binge drinking recently Patient is also found have electrolyte disorder including hypernatremia, metabolic acidosis due to starvation and alcohol abuse, hepatic steatosis CTA head and neck shows no occlusion stenosis, CTA of head shows no acute intracranial issues MRI workup in [facility] suggest MS Consult neurologist for evaluation treatment 11/21. Patient is alert oriented x3, denies focal weakness, vision change 11/23: Pt seen by neurologist will need to start MS medication as outpatient.?dc fluids and iv thiamine change to oral 11/24: ok to Dc with neurology follow up AMS related to starvation and flu illness pt feels better now Time Spent with Patient Time attestation: Total time spent providing and/or coordinating discharge services:40 minutes on day of DC Exam Narrative:
== END 2023-11-24 15:45 | disposition home or self-care (01) | DRG 372 ==
LOC: ANHED 11-20 01:48 → ANH2MED 11-20 03:20
PROVIDERS: Hospitalist; Student in an Organized Health Care Education/Training Program; Admitting Provider Internal Medicine; Emergency Provider Physician Assistant; PCP Internal Medicine; Visit Provider Family Medicine
DX: A04.72 Enterocolitis due to Clostridium difficile, not specified as recurrent (principal); E51.2 Wernicke's encephalopathy; E87.29 Other acidosis; E87.0 Hyperosmolality and hypernatremia; T73.0XXA Starvation, initial encounter; J10.1 Influenza due to other identified influenza virus with other respiratory manifestations; Z20.822 Contact with and (suspected) exposure to COVID-19; E78.5 Hyperlipidemia, unspecified; K70.10 Alcoholic hepatitis without ascites; K76.0 Fatty (change of) liver, not elsewhere classified; E83.51 Hypocalcemia; F10.10 Alcohol abuse, uncomplicated; G35 Multiple sclerosis; I10 Essential (primary) hypertension; E86.0 Dehydration; J45.909 Unspecified asthma, uncomplicated; E87.6 Hypokalemia; Z90.49 Acquired absence of other specified parts of digestive tract; Z98.84 Bariatric surgery status
CPT/HCPCS: 36415; 70496; 70498; 71045; 74177; 80048; 80053; 80074; 80076; 80307; 81001; 81025; 82140; 82607; 82746; 82784; 82803; 83540; 83550; 83605; 83735; 84100; 84439; 84443; 84484; 85025; 85610; 85730; 86480; 87493; 87637; 93005; 96361; 96365; 96366; 96374; 96375; 97110; 97162; 97165; 97530; 99285; A9270; G0378; J3411; J3475; J3480; J7030; J7040; J7042; J7070; J7120; Q9967